=== PATIENT | male | born 1960 | race Hispanic/Latino ===

== ENCOUNTER 2018-03-04 17:08 | Inpatient (IN) | payer BC, OTHER ==
[2018-03-04 18:57] LABS: INR-International Normal Ratio 2.4; Prothrombin Time 26.1 SEC (12.0-14.7)
[2018-03-04 18:58] LABS: PTT 43.9 SEC (22.9-36.1)
--- NOTE | 2018-03-04 19:12 | CT ---
CT BRAIN 03/04/18 PROVIDED CLINICAL HISTORY: Fall with head injury. FINDINGS: Comparison 05/22/16. The ventricular system appears normal in size and morphology. There is no evidence for intracranial h emorrhage or mass effect. The extracranial soft tissues and osseous structures demonstrate an unremar kable CT appearance. IMPRESSION: No evidence for intracranial hemorrhage or mass effect. POS: [facility]
[2018-03-04 19:14] LABS: ALT (SGPT) 31 U/L (8-55); AST (SGOT) 81 U/L (5-34); Albumin 2.2 g/dL (3.5-5.0); Alkaline Phosphatase 110 U/L (40-150); Anion Gap 13 mmol/L (10-20); BUN (Urea Nitrogen) 12 mg/dL (8.4-25.7); Bilirubin, Direct 4.5 mg/dL (0.1-0.3); Bilirubin, Total 6.5 mg/dL (0.2-1.2); Calc. Creatinine Clearance 0 mL/min (70-130); Calcium 8.4 mg/dL (7.8-10.44); Carbon Dioxide 23 mmol/L (22-29); Chloride 103 mmol/L (98-107); Estimated GFR-MDRD 29; Glucose 136 mg/dL (70-105); Potassium 3.4 mmol/L (3.5-5.1); Protein, Total 7.4 g/dL (6.0-8.3); Sodium 136 mmol/L (136-145)
[2018-03-04 19:23] LABS: #Basophils 0.1 thou/uL (0.0-0.2); #Eosinphils 0.1 thou/uL (0.0-0.7); #Lymphocytes 1.5 thou/uL (1.20-3.40); #Monocytes 0.8 thou/uL (0.11-0.59); %Basophils 1.9 % (0.0-1.0); %Lymphocytes 27.6 % (21.0-51.0); %Monocytes 14.5 % (0.0-10.0); Hemoglobin 9.9 g/dL (14.0-18.0); Mean Corpuscular HGB CONC 33.9 g/dL (32.0-36.0); Mean Corpuscular Hemoglobin 39.9 pg (27.0-31.0); Mean Platelet Volume 10.3 fL (7.4-10.4); Platelet Count 41 thou/uL (130-400); Red Blood Cell (RBC) Count 2.48 mill/uL (4.70-6.10); White Blood Cell (WBC) Count 5.5 thou/uL (4.8-10.8)
[2018-03-04 19:25] LABS: Anisocytosis SLIGHT = 6-15 cells (100X) (0-5/hpf); MDiff Complete? YES; Macrocytosis SLIGHT = 6-15 cells (100X) (0-5/hpf); Platelet Morphology Comment Appears Decreased; Polychromasia SLIGHT = 2-3 cells (100X) (0-2/hpf); Target Cells SLIGHT = 2-5 cells (100X) (0-1/hpf)
--- NOTE | 2018-03-04 19:38 | CT ---
CT CERVICAL SPINE 03/04/18 PROVIDED CLINICAL HISTORY: Fall. FINDINGS: Comparison 06/19/13. No evidence for fracture or traumatic subluxation. Changes of ACDF at C4-5 without evidence for hardw are complication. No prevertebral soft tissue swelling apparent. Vascular calcification is noted invo lving the carotid arteries. The visualized lung apices appear clear. IMPRESSION: No evidence for fracture or traumatic subluxation. POS: [facility]
--- NOTE | 2018-03-04 20:03 | RAD ---
LEFT HIP RADIOGRAPHS TWO VIEWS: 03/04/18 PROVIDED CLINICAL HISTORY: Left hip pain status post fall. FINDINGS: Heterogeneous appearance to the left femoral head likely reflects changes of osteonecrosis. No defin ite evidence for subchondral collapse. An osteochondral fragment at the posterior superior left femor al head is suggested on the lateral view. Left hip joint space appears preserved. IMPRESSION: Changes of osteonecrosis are suspected involving the left femoral head with possible associated osteo chondral fragment. Nonemergent followup MRI should be considered. POS: [facility]
[2018-03-04] MEDS ORDERED: Morphine 4 MG/ML VIAL ONE (20:32)
[2018-03-04 21:44] VITALS: BMI 24.7
[2018-03-04] MEDS ORDERED: Bisacodyl 5 MG TAB PO PRN (23:22)
[2018-03-04] MEDS ORDERED: Bisacodyl 10 MG SUPP PR PRN (23:22)
[2018-03-04] MEDS ORDERED: Senokot S 8.6-50 MG TAB PO PRN (23:22)
[2018-03-04 23:58] LABS: #Basophils 0.1 thou/uL (0.0-0.2); #Lymphocytes 1.1 thou/uL (1.20-3.40); #Monocytes 0.5 thou/uL (0.11-0.59); #Neutrophils 2.6 thou/uL (1.40-6.50); %Basophils 1.6 % (0.0-1.0); %Eosinophils 0.5 % (0.0-10.0); %Monocytes 11.2 % (0.0-10.0); %Neutrophils 61.7 % (42.0-75.0); Hemoglobin 9.5 g/dL (14.0-18.0); Mean Corpuscular HGB CONC 32.3 g/dL (32.0-36.0); Mean Corpuscular Hemoglobin 38.5 pg (27.0-31.0); Mean Platelet Volume 9.7 fL (7.4-10.4); Platelet Count 34 thou/uL (130-400); RBC Distribution Width 16.2 % (11.5-14.5); Red Blood Cell (RBC) Count 2.47 mill/uL (4.70-6.10); White Blood Cell (WBC) Count 4.2 thou/uL (4.8-10.8)
[2018-03-05 00:14] LABS: Anion Gap 14 mmol/L (10-20); BUN (Urea Nitrogen) 12 mg/dL (8.4-25.7); BUN/Creatinine Ratio 5.56; Calc. Creatinine Clearance 37 mL/min (70-130); Calcium 7.9 mg/dL (7.8-10.44); Carbon Dioxide 21 mmol/L (22-29); Chloride 104 mmol/L (98-107); Estimated GFR-MDRD 32; Glucose 129 mg/dL (70-105); Phosphorus 3.5 mg/dL (2.3-4.7); Potassium 3.4 mmol/L (3.5-5.1); Sodium 136 mmol/L (136-145)
[2018-03-05 00:15] LABS: Iron 107 ug/dL (65-175); Iron Binding Capacity, Total 103 mcg/dL (261-462)
[2018-03-05 00:46] LABS: Folate (Folic Acid) 2.8 ng/mL (7.0-31.4)
[2018-03-05] MEDS: traMADol HCl 50 MG TAB PO PRN ×2 (01:02→20:59)
[2018-03-05 05:13] LABS: #Basophils 0.1 thou/uL (0.0-0.2); #Eosinphils 0.1 thou/uL (0.0-0.7); #Lymphocytes 1.1 thou/uL (1.20-3.40); #Monocytes 0.6 thou/uL (0.11-0.59); #Neutrophils 2.5 thou/uL (1.40-6.50); %Basophils 1.3 % (0.0-1.0); %Eosinophils 1.8 % (0.0-10.0); %Lymphocytes 25.3 % (21.0-51.0); %Monocytes 14.1 % (0.0-10.0); %Neutrophils 57.6 % (42.0-75.0); Hemoglobin 8.9 g/dL (14.0-18.0); Mean Corpuscular HGB CONC 33.8 g/dL (32.0-36.0); Mean Platelet Volume 9.6 fL (7.4-10.4); Platelet Count 32 thou/uL (130-400); RBC Distribution Width 16.3 % (11.5-14.5); Red Blood Cell (RBC) Count 2.22 mill/uL (4.70-6.10); White Blood Cell (WBC) Count 4.4 thou/uL (4.8-10.8)
[2018-03-05 05:36] LABS: Anion Gap 14 mmol/L (10-20); BUN (Urea Nitrogen) 14 mg/dL (8.4-25.7); Calc. Creatinine Clearance 40 mL/min (70-130); Calcium 7.7 mg/dL (7.8-10.44); Carbon Dioxide 23 mmol/L (22-29); Chloride 104 mmol/L (98-107); Estimated GFR-MDRD 34; Glucose 111 mg/dL (70-105); Potassium 3.5 mmol/L (3.5-5.1); Sodium 137 mmol/L (136-145)
[2018-03-05] MEDS ORDERED: Magnesium Sulfate 4 GM in Sodium Chloride 0.9% 250 ML 250 ML IVPB SCH (08:15)
--- NOTE | 2018-03-05 08:41 | HP ---
CHIEF COMPLAINT: Multiple falls. HISTORY OF PRESENT ILLNESS: This is a 57-year-old male with past medical history of cirrhosis, hepatitis C, ethanol abuse, presenting to our ED with left hip pain, status post fall. Per family member and the patient, he got up and he fell at home a couple of weeks prior and the patient is now in pain, therefore prompted the ED visit. Also, the patient's primary care physician is requesting that the patient's ammonia levels to be drawn in the hospital, so that it can be checked. Per the patient, his last drink was morning. The patient was actually sober for the past year and has relapsed into drinking again. At this point, the patient stated that his main issue is his left hip, which has been having severe pain for the past 3 weeks. Pain is 8/10. At this point, currently, the patient states that due to medications, now the pain is about 2/10. The patient denies any fever, chills, nausea, vomiting, chest pain, palpitations, abdominal pain, dysuria, hematuria, or hematochezia. The patient endorses left hip pain and some tremors. REVIEW OF SYSTEMS: Positive for bowel incontinence, left hip pain, multiple falls. Otherwise as documented in the HPI, all systems has been reviewed and are negative. PAST MEDICAL HISTORY: Hepatitis C, liver cirrhosis, hypertension, gallstones, and ethanol abuse. FAMILY HISTORY: Reviewed and noncontributory to this visit. PAST SURGICAL HISTORY: Right hand surgery. PAST PSYCHIATRIC HISTORY: The patient is alcoholic. He has anxiety and depression. SOCIAL HISTORY: The patient drinks alcohol, and the patient has been drinking on the regular basis. The patient drinks about 10 drinks per day. The patient is a former heroin drug abuser. The patient also is a former cigarette smoker. The patient lives at home with family. ALLERGIES: NO KNOWN DRUG ALLERGIES. CURRENT MEDICATIONS: The patient takes; 1. Magnesium oxide 400 mg. 2. Tamsulosin 0.4 mg. 3. Furosemide 20 mg. 4. Spironolactone 50 mg. 5. Folic acid 1 mg. 6. Thiamine 100 mg. 7. Xifaxan 550 mg b.i.d. 8. Propranolol 5 mg t.i.d. 9. Lexapro 10 mg orally. 10. Klonopin. PHYSICAL EXAMINATION: VITAL SIGNS: The patient's blood pressure is 108/69, pulse is 70, respiratory rate of 16, temperature of 97.9, and O2 saturations 97. CONSTITUTIONAL SYMPTOMS/GENERAL: The patient is lying in bed. The patient has a big alvarez, unkempt, and the patient looks as if he is homeless. The patient is cachectic. HEENT: Normocephalic and atraumatic. Pupils are equally round and reactive to light. The patient has scleral icterus. Mucous membranes are dry. NECK: Trachea is midline. Full range of motion. Mild JVD noted. LUNGS: Clear to auscultation bilaterally. No wheezing, no rales, no rhonchi are appreciated. CARDIAC: Positive S1 and S2. Regular rate and rhythm. No murmurs, no gallops, no rubs are appreciated. ABDOMEN: Mildly distended with ascitic wave present. No peritonitis noted. No guarding. EXTREMITIES: The patient has tenderness at the left hip with reduced range of motion at the hip. Otherwise, the patient has no edema noted at the lower extremities bilaterally. The patient has 5/5 upper extremity strength. Good pulses bilaterally at the upper and lower extremities. NEURO: Cranial nerves II through XII are grossly intact. No focal neurologic deficits noted at this time. LABORATORY DATA: 1. WBC is 5.5, hemoglobin is 9.9, hematocrit is 29.2, and platelet count is 41. 2. PT is 26.1, INR is 2.4, and PTT is 43.9. 3. Sodium is 136, potassium is 3.4, chloride is 103, carbon dioxide of 23, anion gap of 13, BUN is 12, creatinine is 2.35. BUN and creatinine ratio is 5.56 approximately, glucose is 136. Magnesium is 1.0. 4. Vitamin B12 is 1680, folate is 2.80. ASSESSMENT AND PLAN: This is a 57-year-old male, being admitted for; 1. Multiple falls, likely due to ethanol intoxication versus physical deconditioning. At this time, the patient will benefit from PT, OT. We will advise the patient to stop drinking. We will give the patient IV gentle hydration like one bag, and we will give the patient Ativan p.r.n. for possible withdrawal. We will start the patient on multivitamins and folic acid. 2. Electrolyte abnormalities. We will replete all electrolyte abnormalities. 3. Severe hypomagnesemia. We will replete magnesium levels. 4. History of cirrhosis. The patient do have history of cirrhosis with ascites. We are going to monitor this at this time. The patient does not have any abdominal distention requiring any intervention at this time. We will monitor the patient closely. 5. Acute on chronic kidney injury, likely due to prerenal etiology. At this time, we will monitor the patient's creatinine closely. We will follow up on morning labs. 6. Thrombocytopenia likely due to liver cirrhosis. At this point, we will monitor the patient's platelet. We will hold all medications other than antiplatelets. 7. Physical deconditioning. We will get Physical Therapy and Case Management for the patient. 8. Deep vein thrombosis and gastrointestinal prophylaxis addressed. Job ID: [id number]
[2018-03-05] MEDS ORDERED: Famotidine 20 MG TAB PO SCH (09:00)
[2018-03-05] MEDS ORDERED: Famotidine/PF 20 mg/2ml Vial SLOW IVP SCH (09:00)
[2018-03-05] MEDS: Ondansetron ODT 8 MG TAB PO PRN ×2 (09:20→19:27)
[2018-03-05] MEDS: Propranolol 10 MG TAB PO SCH ×3 (10:04→20:58)
[2018-03-05] MEDS: clonazePAM 1 MG TAB PO SCH ×3 (10:04→20:59)
[2018-03-05] MEDS: Tamsulosin HCl 0.4 MG CAP PO SCH ×2 (10:05→12:56)
[2018-03-05] MEDS: Escitalopram Oxalate 10 mg Tablet PO SCH ×2 (10:05→12:56)
[2018-03-05] MEDS: Rifaximin 550 MG TAB PO SCH ×2 (10:05→20:59)
[2018-03-05] MEDS: Folic Acid 1 MG TAB PO SCH ×2 (10:05→12:56)
[2018-03-05] MEDS: Lorazepam 2 MG/ML VIAL SLOW IVP PRN (12:24)
--- NOTE | 2018-03-05 17:07 | PDOC.PN ---
- Subjective Encounter Start Date: 03/05/18 Encounter Start Time: 10:00 Pt seen for followup re: acute on chronic stage 3 renal failure. Denies chest pain, shortness of breath, fevers or chills. - Objective Resuscitation Status - Order Detail: 03/04/18 23:22 Resuscitation Status Routine Resuscitation Status: FULL: Full Resuscitation MAR Reviewed: Yes Vital Signs & Weight: Vital Signs (12 hours) Temp Pulse Pulse Pulse Resp BP BP 03/05/18 15:35 98.3 F 96 16 03/05/18 13:38 82 85 113/66 144/65 H 03/05/18 11:56 98.1 F 84 20 03/05/18 10:28 87 85 131/65 143/70 H 03/05/18 08:10 98.2 F 81 16 BP Pulse Ox Pulse Ox 03/05/18 15:35 133/74 94 L 03/05/18 13:38 03/05/18 11:56 126/76 94 L 03/05/18 10:28 94 L 03/05/18 08:10 118/71 94 L Weight Weight 153 lb 11.2 oz I&O: 03/04/18 03/05/18 03/06/18 06:59 06:59 06:59 Intake Total 640 250 Output Total 550 Balance 90 250 Result Diagrams: 03/05/18 04:52 03/05/18 04:52 Additional Labs: labs reviewed by me Phys Exam - Physical Examination Constitutional: NAD HEENT: moist MMs icterus Neck: supple Respiratory: clear to auscultation bilateral Cardiovascular: RRR Gastrointestinal: soft, non-tender, positive bowel sounds Neurological: moves all 4 limbs No flapping tremor Psychiatric: normal affect Dx/Plan (1) Acute worsening of stage 3 chronic kidney disease Code(s): N18.3 - CHRONIC KIDNEY DISEASE, STAGE 3 (MODERATE) Status: Acute Comment: ? hepatorenal syndrome vs other causes. Improving, provide IV hydration, follow creatinine. (2) Alcohol abuse Code(s): F10.10 - ALCOHOL ABUSE, UNCOMPLICATED Status: Chronic Comment: start ASE protocol. Continue thiamine. (3) BPH (benign prostatic hyperplasia) Code(s): N40.0 - BENIGN PROSTATIC HYPERPLASIA WITHOUT LOWER URINRY TRACT SYMP Status: Chronic Comment: stable (4) Cirrhosis of liver Code(s): K74.60 - UNSPECIFIED CIRRHOSIS OF LIVER Status: Chronic Comment: stable (5) Coagulopathy Status: Chronic Comment: secondary to liver disease (6) Hypertension Code(s): I10 - ESSENTIAL (PRIMARY) HYPERTENSION Status: Chronic Qualifiers: Comment: controlled (7) Falls Code(s): W19.XXXA - UNSPECIFIED FALL, INITIAL ENCOUNTER Status: Chronic Comment: PT/OT eval/tx - Plan plan discussed w/ family, out of bed/ambulate * . Review of Systems - Review of Systems Cardiovascular: negative: chest pain, palpitations, orthopnea, paroxysmal nocturnal dyspnea, edema, light headedness Gastrointestinal: negative: Nausea, Vomiting, Abdominal Pain, Diarrhea, Constipation, Melena, Hematochezia - Medications/Allergies Allergies/Adverse Reactions: Allergies Allergy/AdvReac Type Severity Reaction Status Date / Time No Known Allergies Allergy Verified 03/04/18 21:48 Medications: Current Medications Acetaminophen (Tylenol) 650 mg PO Q4H PRN PRN Reason: Headache/Fever/Mild Pain (1-3) Bisacodyl (Dulcolax) 10 mg PO DAILYPRN PRN PRN Reason: Constipation Bisacodyl (Dulcolax) 10 mg [place] DAILYPRN PRN PRN Reason: Constipation Clonazepam (Klonopin) 1 mg PO BID [facility] Last Admin: 03/05/18 12:55 Dose: Not Given Escitalopram Oxalate (Lexapro) 10 mg PO DAILY [facility] Last Admin: 03/05/18 12:56 Dose: Not Given Folic Acid (Folvite) 1 mg PO DAILY [facility] Last Admin: 03/05/18 12:56 Dose: Not Given Lorazepam (Ativan) 2 mg SLOW IVP Q4H PRN PRN Reason: Anxiety/Agitation Last Admin: 03/05/18 12:24 Dose: 2 mg Magnesium Oxide (Magnesium Oxide) 400 mg PO HS [facility] Ondansetron HCl (Zofran Odt) 8 mg PO Q8H PRN PRN Reason: Nausea Last Admin: 03/05/18 09:20 Dose: 8 mg Propranolol HCl (Inderal) 5 mg PO TID [facility] Last Admin: 03/05/18 15:37 Dose: 5 mg Rifaximin (Xifaxan) 550 mg PO BID [facility] Last Admin: 03/05/18 10:05 Dose: 550 mg Senna/Docusate Sodium (Senokot S) 2 tab PO BID PRN PRN Reason: Constipation Sodium Chloride (Flush - Normal Saline) 10 ml IVF Q12HR [facility] Last Admin: 03/05/18 10:06 Dose: 10 ml Sodium Chloride (Flush - Normal Saline) 10 ml IVF PRN PRN PRN Reason: Saline Flush Tamsulosin HCl (Flomax) 0.4 mg PO DAILY [facility] Last Admin: 03/05/18 12:56 Dose: Not Given Thiamine HCl (Thiamine) 100 mg PO DAILY [facility] Last Admin: 03/05/18 12:57 Dose: Not Given Tramadol HCl (Ultram) 50 mg PO Q6H PRN PRN Reason: Pain 4-6 Last Admin: 03/05/18 01:02 Dose: 50 mg
[2018-03-05] MEDS: Sodium Chloride 0.9% 1,000 ML IV SCH (19:28)
[2018-03-05] MEDS: Magnesium Oxide 400 MG TAB PO SCH (20:58)
[2018-03-06] MEDS: traMADol HCl 50 MG TAB PO PRN ×2 (04:07→23:41)
[2018-03-06] MEDS: Ondansetron ODT 8 MG TAB PO PRN (04:08)
[2018-03-06] MEDS: Lorazepam 2 MG/ML VIAL SLOW IVP PRN (04:28)
[2018-03-06 05:12] LABS: #Eosinphils 0.1 thou/uL (0.0-0.7); #Lymphocytes 1.3 thou/uL (1.20-3.40); #Monocytes 0.8 thou/uL (0.11-0.59); #Neutrophils 3.6 thou/uL (1.40-6.50); %Basophils 0.8 % (0.0-1.0); %Eosinophils 1.5 % (0.0-10.0); %Lymphocytes 21.9 % (21.0-51.0); %Monocytes 12.9 % (0.0-10.0); %Neutrophils 62.8 % (42.0-75.0); Hemoglobin 9.1 g/dL (14.0-18.0); Mean Corpuscular HGB CONC 33.7 g/dL (32.0-36.0); Mean Corpuscular Hemoglobin 39.9 pg (27.0-31.0); Mean Platelet Volume 9.9 fL (7.4-10.4); Platelet Count 37 thou/uL (130-400); RBC Distribution Width 16.5 % (11.5-14.5); Red Blood Cell (RBC) Count 2.28 mill/uL (4.70-6.10); White Blood Cell (WBC) Count 5.8 thou/uL (4.8-10.8)
[2018-03-06 05:33] LABS: ALT (SGPT) 28 U/L (8-55); AST (SGOT) 68 U/L (5-34); Albumin 1.9 g/dL (3.5-5.0); Alkaline Phosphatase 86 U/L (40-150); Anion Gap 10 mmol/L (10-20); BUN (Urea Nitrogen) 14 mg/dL (8.4-25.7); Calc. Creatinine Clearance 50 mL/min (70-130); Calcium 7.5 mg/dL (7.8-10.44); Carbon Dioxide 25 mmol/L (22-29); Chloride 102 mmol/L (98-107); Estimated GFR-MDRD 43; Globulin 4.7 g/dL (2.4-3.5); Glucose 106 mg/dL (70-105); Magnesium 1.7 mg/dL (1.6-2.6); Potassium 3.5 mmol/L (3.5-5.1); Protein, Total 6.6 g/dL (6.0-8.3); Sodium 133 mmol/L (136-145)
[2018-03-06] MEDS: Sodium Chloride 0.9% 1,000 ML IV SCH ×2 (08:58→23:37)
[2018-03-06] MEDS: Propranolol 10 MG TAB PO SCH ×3 (08:59→21:37)
[2018-03-06] MEDS: Escitalopram Oxalate 10 mg Tablet PO SCH (08:59)
[2018-03-06] MEDS: Folic Acid 1 MG TAB PO SCH (08:59)
[2018-03-06] MEDS: Tamsulosin HCl 0.4 MG CAP PO SCH (08:59)
[2018-03-06] MEDS: clonazePAM 1 MG TAB PO SCH ×2 (08:59→21:38)
[2018-03-06] MEDS: Rifaximin 550 MG TAB PO SCH ×2 (08:59→21:37)
--- NOTE | 2018-03-06 13:01 | PDOC.PN ---
- Subjective Encounter Start Date: 03/06/18 Encounter Start Time: 07:20 Pt seen for followup re: alcohol withdrawal. Tremulous, nauseous. - Objective Resuscitation Status - Order Detail: 03/04/18 23:22 Resuscitation Status Routine Resuscitation Status: FULL: Full Resuscitation Vital Signs & Weight: Vital Signs (12 hours) Temp Pulse Resp BP BP Pulse Ox 03/06/18 12:00 112/58 L 03/06/18 11:10 98.5 F 90 16 112/58 L 93 L 03/06/18 07:54 121/65 03/06/18 07:49 98.5 F 91 16 124/66 92 L 03/06/18 04:14 136/73 03/06/18 04:13 99 F 89 20 136/73 93 L Weight Weight 157 lb 14.4 oz I&O: 03/05/18 03/06/18 03/07/18 06:59 06:59 06:59 Intake Total 640 1284 1000 Output Total 550 800 Balance 90 484 1000 Result Diagrams: 03/06/18 04:49 03/06/18 04:50 Phys Exam - Physical Examination Constitutional: NAD HEENT: moist MMs, oral pharynx no lesions, 2+ tonsils scleral icterus Neck: no nodes, no JVD, supple, full ROM Respiratory: clear to auscultation bilateral Cardiovascular: RRR, no rub S1, S2 Neurological: moves all 4 limbs Psychiatric: normal affect Deviation from normal: Oriented to person and place only, not to time Dx/Plan (1) Alcohol withdrawal syndrome Code(s): F10.239 - ALCOHOL DEPENDENCE WITH WITHDRAWAL, UNSPECIFIED Status: Acute Comment: Continue ASE protocol, benzodiazepines PRN (2) BPH (benign prostatic hyperplasia) Code(s): N40.0 - BENIGN PROSTATIC HYPERPLASIA WITHOUT LOWER URINRY TRACT SYMP Status: Chronic Comment: stable (3) Alcohol abuse Code(s): F10.10 - ALCOHOL ABUSE, UNCOMPLICATED Status: Chronic Comment: Continue thiamine. (4) Cirrhosis of liver Code(s): K74.60 - UNSPECIFIED CIRRHOSIS OF LIVER Status: Chronic Comment: stable (5) Coagulopathy Status: Chronic Comment: secondary to liver disease, stable (6) Hypertension Code(s): I10 - ESSENTIAL (PRIMARY) HYPERTENSION Status: Chronic Qualifiers: Comment: controlled (7) Falls Code(s): W19.XXXA - UNSPECIFIED FALL, INITIAL ENCOUNTER Status: Chronic Comment: PT/OT maureen appreciated (8) Acute worsening of stage 3 chronic kidney disease Code(s): N18.3 - CHRONIC KIDNEY DISEASE, STAGE 3 (MODERATE) Status: Resolved - Plan * . Pt at significant risk for delirium tremens and hemodynamic instability, last alcohol use approximately 48 hours ago. Unable to discharge pt at this time due to risk of hemodynamic instability, seizures and even . Will change admission to inpatient. Review of Systems - Review of Systems Constitutional: negative: fever, chills, sweats, weakness, malaise Respiratory: negative: Cough, Shortness of Breath, SOB with Excertion, Pleuritic Pain, Wheezing Cardiovascular: palpitations. negative: chest pain, orthopnea, paroxysmal nocturnal dyspnea, edema, light headedness Gastrointestinal: Nausea, Vomiting. negative: Abdominal Pain, Diarrhea, Constipation, Melena, Hematochezia Genitourinary: negative: Dysuria, Frequency, Incontinence, Hematuria, Retention Neurological: Confusion, Other. negative: Weakness, Numbness, Incoordination, Change in Speech, Seizures (tremor) - Medications/Allergies Allergies/Adverse Reactions: Allergies Allergy/AdvReac Type Severity Reaction Status Date / Time No Known Allergies Allergy Verified 03/04/18 21:48 Medications: Current Medications Acetaminophen (Tylenol) 650 mg PO Q4H PRN PRN Reason: Headache/Fever/Mild Pain (1-3) Bisacodyl (Dulcolax) 10 mg PO DAILYPRN PRN PRN Reason: Constipation Bisacodyl (Dulcolax) 10 mg [place] DAILYPRN PRN PRN Reason: Constipation Clonazepam (Klonopin) 1 mg PO BID [facility] Last Admin: 03/06/18 08:59 Dose: 1 mg Escitalopram Oxalate (Lexapro) 10 mg PO DAILY [facility] Last Admin: 03/06/18 08:59 Dose: 10 mg Folic Acid (Folvite) 1 mg PO DAILY [facility] Last Admin: 03/06/18 08:59 Dose: 1 mg Sodium Chloride (Normal Saline 0.9%) 1,000 mls @ 75 mls/hr IV .[id number] [facility] Last Admin: 03/06/18 08:58 Dose: 1,000 mls Lorazepam (Ativan) 2 mg SLOW IVP Q4H PRN PRN Reason: Anxiety/Agitation Last Admin: 03/06/18 04:28 Dose: 2 mg Magnesium Oxide (Magnesium Oxide) 400 mg PO HS [facility] Last Admin: 03/05/18 20:58 Dose: 400 mg Ondansetron HCl (Zofran Odt) 8 mg PO Q8H PRN PRN Reason: Nausea Last Admin: 03/06/18 04:08 Dose: 8 mg Propranolol HCl (Inderal) 5 mg PO TID [facility] Last Admin: 03/06/18 08:59 Dose: 5 mg Rifaximin (Xifaxan) 550 mg PO BID [facility] Last Admin: 03/06/18 08:59 Dose: 550 mg Senna/Docusate Sodium (Senokot S) 2 tab PO BID PRN PRN Reason: Constipation Sodium Chloride (Flush - Normal Saline) 10 ml IVF Q12HR [facility] Last Admin: 03/06/18 08:59 Dose: Not Given Sodium Chloride (Flush - Normal Saline) 10 ml IVF PRN PRN PRN Reason: Saline Flush Tamsulosin HCl (Flomax) 0.4 mg PO DAILY [facility] Last Admin: 03/06/18 08:59 Dose: 0.4 mg Thiamine HCl (Thiamine) 100 mg PO DAILY [facility] Last Admin: 03/06/18 08:59 Dose: 100 mg Tramadol HCl (Ultram) 50 mg PO Q6H PRN PRN Reason: Pain 4-6 Last Admin: 03/06/18 04:07 Dose: 50 mg
[2018-03-06] MEDS: Magnesium Oxide 400 MG TAB PO SCH (21:38)
[2018-03-07 05:35] LABS: ALT (SGPT) 24 U/L (8-55); AST (SGOT) 60 U/L (5-34); Albumin 1.9 g/dL (3.5-5.0); Alkaline Phosphatase 108 U/L (40-150); Anion Gap 11 mmol/L (10-20); BUN (Urea Nitrogen) 14 mg/dL (8.4-25.7); Band 6 % (5-11); Calc. Creatinine Clearance 56 mL/min (70-130); Calcium 7.8 mg/dL (7.8-10.44); Carbon Dioxide 22 mmol/L (22-29); Chloride 102 mmol/L (98-107); Elliptocytes SLIGHT = 2-5 cells (100X) (0-1/hpf); Eosinophils 4 % (0-10); Estimated GFR-MDRD 49; Globulin 4.6 g/dL (2.4-3.5); Glucose 103 mg/dL (70-105); Hypochromia SLIGHT = 6-15 cells (100X) (0-5/hpf); Lymphocytes 29 % (21-51); MDiff Complete? YES; Macrocytosis MODERATE=16-30 cells (100X) (0-5/hpf); Mean Corpuscular HGB CONC 33.5 g/dL (32.0-36.0); Mean Corpuscular Hemoglobin 39.9 pg (27.0-31.0); Mean Platelet Volume 10.4 fL (7.4-10.4); Monocytes 13 % (0-10); Neutrophil 48 % (42-75); Platelet Count 32 thou/uL (130-400); Platelet Morphology Comment Appears Decreased; Potassium 3.7 mmol/L (3.5-5.1); Protein, Total 6.5 g/dL (6.0-8.3); RBC Distribution Width 16.5 % (11.5-14.5); Red Blood Cell (RBC) Count 2.24 mill/uL (4.70-6.10); Sodium 131 mmol/L (136-145)
[2018-03-07] MEDS: traMADol HCl 50 MG TAB PO PRN ×3 (06:21→20:07)
[2018-03-07] MEDS: Rifaximin 550 MG TAB PO SCH ×2 (08:07→20:06)
[2018-03-07] MEDS: Folic Acid 1 MG TAB PO SCH (08:07)
[2018-03-07] MEDS: clonazePAM 1 MG TAB PO SCH ×2 (08:07→20:06)
[2018-03-07] MEDS: Tamsulosin HCl 0.4 MG CAP PO SCH (08:07)
[2018-03-07] MEDS: Escitalopram Oxalate 10 mg Tablet PO SCH (08:08)
[2018-03-07] MEDS: Propranolol 10 MG TAB PO SCH ×3 (08:08→20:07)
--- NOTE | 2018-03-07 12:41 | PDOC.PN ---
- Subjective Encounter Start Date: 03/07/18 Encounter Start Time: 07:20 Pt seen for followup re: alcohol withdrawal. Kristy, did not sleep well. - Objective Resuscitation Status - Order Detail: 03/04/18 23:22 Resuscitation Status Routine Resuscitation Status: FULL: Full Resuscitation MAR Reviewed: Yes Vital Signs & Weight: Vital Signs (12 hours) Temp Pulse Resp BP BP Pulse Ox 03/07/18 08:04 97.7 F 85 20 116/70 95 03/07/18 04:46 98.3 F 80 12 130/71 130/71 95 Weight Weight 157 lb 14.4 oz I&O: 03/06/18 03/07/18 03/08/18 06:59 06:59 06:59 Intake Total 1284 2231 Output Total 800 Balance 484 2231 Result Diagrams: 03/07/18 04:44 03/07/18 04:44 EKG Reviewed by me: Yes (Tele: NSR) Phys Exam - Physical Examination Constitutional: NAD HEENT: moist MMs Neck: supple Respiratory: clear to auscultation bilateral Cardiovascular: RRR Gastrointestinal: soft Neurological: moves all 4 limbs tremulous Deviation from normal: appears anxious, oriented to person and place only Dx/Plan (1) Alcohol withdrawal syndrome Code(s): F10.239 - ALCOHOL DEPENDENCE WITH WITHDRAWAL, UNSPECIFIED Status: Acute Comment: Pt is on ASE protocol, PRN benzodiazepines (2) BPH (benign prostatic hyperplasia) Code(s): N40.0 - BENIGN PROSTATIC HYPERPLASIA WITHOUT LOWER URINRY TRACT SYMP Status: Chronic Comment: stable (3) Alcohol abuse Code(s): F10.10 - ALCOHOL ABUSE, UNCOMPLICATED Status: Chronic Comment: on thiamine. (4) Cirrhosis of liver Code(s): K74.60 - UNSPECIFIED CIRRHOSIS OF LIVER Status: Chronic Comment: stable (5) Coagulopathy Status: Chronic Comment: secondary to liver disease, stable (6) Hypertension Code(s): I10 - ESSENTIAL (PRIMARY) HYPERTENSION Status: Chronic Qualifiers: Comment: controlled (7) Falls Code(s): W19.XXXA - UNSPECIFIED FALL, INITIAL ENCOUNTER Status: Chronic Comment: PT/OT evals appreciated (8) Acute worsening of stage 3 chronic kidney disease Code(s): N18.3 - CHRONIC KIDNEY DISEASE, STAGE 3 (MODERATE) Status: Resolved - Plan * . Review of Systems - Review of Systems Respiratory: negative: Cough, Shortness of Breath, SOB with Excertion, Pleuritic Pain, Wheezing Cardiovascular: negative: chest pain, palpitations, orthopnea, paroxysmal nocturnal dyspnea, edema, light headedness - Medications/Allergies Allergies/Adverse Reactions: Allergies Allergy/AdvReac Type Severity Reaction Status Date / Time No Known Allergies Allergy Verified 03/04/18 21:48 Medications: Current Medications Acetaminophen (Tylenol) 650 mg PO Q4H PRN PRN Reason: Headache/Fever/Mild Pain (1-3) Bisacodyl (Dulcolax) 10 mg PO DAILYPRN PRN PRN Reason: Constipation Bisacodyl (Dulcolax) 10 mg [place] DAILYPRN PRN PRN Reason: Constipation Clonazepam (Klonopin) 1 mg PO BID [facility] Last Admin: 03/07/18 08:07 Dose: 1 mg Escitalopram Oxalate (Lexapro) 10 mg PO DAILY [facility] Last Admin: 03/07/18 08:08 Dose: 10 mg Folic Acid (Folvite) 1 mg PO DAILY [facility] Last Admin: 03/07/18 08:07 Dose: 1 mg Sodium Chloride (Normal Saline 0.9%) 1,000 mls @ 75 mls/hr IV .[id number] [facility] Last Admin: 03/06/18 23:37 Dose: 1,000 mls Lorazepam (Ativan) 2 mg SLOW IVP Q4H PRN PRN Reason: Anxiety/Agitation Last Admin: 03/06/18 04:28 Dose: 2 mg Magnesium Oxide (Magnesium Oxide) 400 mg PO HS [facility] Last Admin: 03/06/18 21:38 Dose: 400 mg Ondansetron HCl (Zofran Odt) 8 mg PO Q8H PRN PRN Reason: Nausea Last Admin: 03/06/18 04:08 Dose: 8 mg Propranolol HCl (Inderal) 5 mg PO TID [facility] Last Admin: 03/07/18 08:08 Dose: 5 mg Rifaximin (Xifaxan) 550 mg PO BID [facility] Last Admin: 03/07/18 08:07 Dose: 550 mg Senna/Docusate Sodium (Senokot S) 2 tab PO BID PRN PRN Reason: Constipation Sodium Chloride (Flush - Normal Saline) 10 ml IVF Q12HR [facility] Last Admin: 03/07/18 08:19 Dose: Not Given Sodium Chloride (Flush - Normal Saline) 10 ml IVF PRN PRN PRN Reason: Saline Flush Last Admin: 03/06/18 21:39 Dose: 10 ml Tamsulosin HCl (Flomax) 0.4 mg PO DAILY [facility] Last Admin: 03/07/18 08:07 Dose: 0.4 mg Thiamine HCl (Thiamine) 100 mg PO DAILY [facility] Last Admin: 03/07/18 08:07 Dose: 100 mg Tramadol HCl (Ultram) 50 mg PO Q6H PRN PRN Reason: Pain 4-6 Last Admin: 03/07/18 06:21 Dose: 50 mg
[2018-03-07] MEDS: Sodium Chloride 0.9% 1,000 ML IV SCH (13:07)
[2018-03-07] MEDS: Lorazepam 2 MG/ML VIAL SLOW IVP PRN (14:37)
[2018-03-07] MEDS: Magnesium Oxide 400 MG TAB PO SCH (20:06)
[2018-03-07] MEDS: Acetaminophen 325 MG TAB PO PRN (20:07)
[2018-03-08] MEDS: Sodium Chloride 0.9% 1,000 ML IV SCH ×2 (02:36→15:20)
[2018-03-08 04:44] LABS: #Basophils 0.1 thou/uL (0.0-0.2); #Eosinphils 0.2 thou/uL (0.0-0.7); #Lymphocytes 1.5 thou/uL (1.20-3.40); #Monocytes 0.8 thou/uL (0.11-0.59); #Neutrophils 2.8 thou/uL (1.40-6.50); %Basophils 1.1 % (0.0-1.0); %Eosinophils 3.5 % (0.0-10.0); %Monocytes 14.7 % (0.0-10.0); %Neutrophils 52.6 % (42.0-75.0); Hemoglobin 9.3 g/dL (14.0-18.0); Mean Corpuscular HGB CONC 33.7 g/dL (32.0-36.0); Mean Corpuscular Hemoglobin 40.8 pg (27.0-31.0); Mean Platelet Volume 9.6 fL (7.4-10.4); Platelet Count 37 thou/uL (130-400); RBC Distribution Width 16.6 % (11.5-14.5); Red Blood Cell (RBC) Count 2.28 mill/uL (4.70-6.10); White Blood Cell (WBC) Count 5.3 thou/uL (4.8-10.8)
[2018-03-08 05:16] LABS: ALT (SGPT) 24 U/L (8-55); AST (SGOT) 60 U/L (5-34); Albumin 1.9 g/dL (3.5-5.0); Alkaline Phosphatase 117 U/L (40-150); Anion Gap 11 mmol/L (10-20); BUN (Urea Nitrogen) 14 mg/dL (8.4-25.7); Bilirubin, Total 6.5 mg/dL (0.2-1.2); Calc. Creatinine Clearance 63 mL/min (70-130); Calcium 7.7 mg/dL (7.8-10.44); Carbon Dioxide 22 mmol/L (22-29); Chloride 102 mmol/L (98-107); Estimated GFR-MDRD 56; Globulin 4.5 g/dL (2.4-3.5); Glucose 72 mg/dL (70-105); Potassium 4.5 mmol/L (3.5-5.1); Protein, Total 6.4 g/dL (6.0-8.3); Sodium 130 mmol/L (136-145)
[2018-03-08] MEDS: clonazePAM 1 MG TAB PO SCH ×2 (09:00→20:36)
[2018-03-08] MEDS: Propranolol 10 MG TAB PO SCH ×3 (09:00→20:35)
[2018-03-08] MEDS: Folic Acid 1 MG TAB PO SCH (09:00)
[2018-03-08] MEDS: Escitalopram Oxalate 10 mg Tablet PO SCH (09:00)
[2018-03-08] MEDS: Rifaximin 550 MG TAB PO SCH ×2 (09:01→20:35)
[2018-03-08] MEDS: Tamsulosin HCl 0.4 MG CAP PO SCH (09:01)
--- NOTE | 2018-03-08 15:32 | PDOC.PN ---
- Subjective Encounter Start Date: 03/08/18 Encounter Start Time: 07:40 Pt seen for followup re: alcohol withdrawal. feels slightly better. - Objective Resuscitation Status - Order Detail: 03/04/18 23:22 Resuscitation Status Routine Resuscitation Status: FULL: Full Resuscitation MAR Reviewed: Yes Vital Signs & Weight: Vital Signs (12 hours) Temp Pulse Resp BP BP Pulse Ox 03/08/18 15:27 102/66 03/08/18 11:52 98.2 F 81 16 103/64 94 L 03/08/18 08:44 111/68 03/08/18 08:15 97.9 F 78 18 111/68 96 03/08/18 04:00 110/65 Weight Weight 157 lb 14.4 oz I&O: 03/07/18 03/08/18 03/09/18 06:59 06:59 06:59 Intake Total 2231 771 Output Total 125 Balance 2231 646 Result Diagrams: 03/08/18 04:27 03/08/18 04:27 EKG Reviewed by me: Yes (Tele: NSR) Phys Exam - Physical Examination Constitutional: NAD HEENT: moist MMs Neck: supple Respiratory: clear to auscultation bilateral Cardiovascular: RRR Gastrointestinal: soft Neurological: moves all 4 limbs Psychiatric: normal affect Dx/Plan (1) Alcohol withdrawal syndrome Code(s): F10.239 - ALCOHOL DEPENDENCE WITH WITHDRAWAL, UNSPECIFIED Status: Acute Comment: will continue ASE protocol, PRN benzodiazepines (2) BPH (benign prostatic hyperplasia) Code(s): N40.0 - BENIGN PROSTATIC HYPERPLASIA WITHOUT LOWER URINRY TRACT SYMP Status: Chronic Comment: stable (3) Alcohol abuse Code(s): F10.10 - ALCOHOL ABUSE, UNCOMPLICATED Status: Chronic Comment: on thiamine. (4) Cirrhosis of liver Code(s): K74.60 - UNSPECIFIED CIRRHOSIS OF LIVER Status: Chronic Comment: stable (5) Coagulopathy Status: Chronic Comment: secondary to liver disease (6) Hypertension Code(s): I10 - ESSENTIAL (PRIMARY) HYPERTENSION Status: Chronic Qualifiers: Comment: controlled (7) Falls Code(s): W19.XXXA - UNSPECIFIED FALL, INITIAL ENCOUNTER Status: Chronic Comment: PT/OT evals appreciated (8) Acute worsening of stage 3 chronic kidney disease Code(s): N18.3 - CHRONIC KIDNEY DISEASE, STAGE 3 (MODERATE) Status: Resolved - Plan * . Review of Systems - Review of Systems Respiratory: negative: Cough, Shortness of Breath, SOB with Excertion, Pleuritic Pain, Wheezing Cardiovascular: negative: chest pain, palpitations, orthopnea, paroxysmal nocturnal dyspnea, edema, light headedness - Medications/Allergies Allergies/Adverse Reactions: Allergies Allergy/AdvReac Type Severity Reaction Status Date / Time No Known Allergies Allergy Verified 03/04/18 21:48 Medications: Current Medications Acetaminophen (Tylenol) 650 mg PO Q4H PRN PRN Reason: Headache/Fever/Mild Pain (1-3) Last Admin: 03/07/18 20:07 Dose: 650 mg Bisacodyl (Dulcolax) 10 mg PO DAILYPRN PRN PRN Reason: Constipation Bisacodyl (Dulcolax) 10 mg [place] DAILYPRN PRN PRN Reason: Constipation Clonazepam (Klonopin) 1 mg PO BID [facility] Last Admin: 03/08/18 09:00 Dose: 1 mg Escitalopram Oxalate (Lexapro) 10 mg PO DAILY [facility] Last Admin: 03/08/18 09:00 Dose: 10 mg Folic Acid (Folvite) 1 mg PO DAILY [facility] Last Admin: 03/08/18 09:00 Dose: 1 mg Sodium Chloride (Normal Saline 0.9%) 1,000 mls @ 75 mls/hr IV .[id number] [facility] Last Admin: 03/08/18 15:20 Dose: 1,000 mls Lorazepam (Ativan) 2 mg SLOW IVP Q4H PRN PRN Reason: Anxiety/Agitation Last Admin: 03/07/18 14:37 Dose: 2 mg Magnesium Oxide (Magnesium Oxide) 400 mg PO HS [facility] Last Admin: 03/07/18 20:06 Dose: 400 mg Ondansetron HCl (Zofran Odt) 8 mg PO Q8H PRN PRN Reason: Nausea Last Admin: 03/06/18 04:08 Dose: 8 mg Propranolol HCl (Inderal) 5 mg PO TID [facility] Last Admin: 03/08/18 15:26 Dose: 5 mg Rifaximin (Xifaxan) 550 mg PO BID [facility] Last Admin: 03/08/18 09:01 Dose: 550 mg Senna/Docusate Sodium (Senokot S) 2 tab PO BID PRN PRN Reason: Constipation Sodium Chloride (Flush - Normal Saline) 10 ml IVF Q12HR [facility] Last Admin: 03/08/18 09:01 Dose: Not Given Sodium Chloride (Flush - Normal Saline) 10 ml IVF PRN PRN PRN Reason: Saline Flush Last Admin: 03/06/18 21:39 Dose: 10 ml Tamsulosin HCl (Flomax) 0.4 mg PO DAILY [facility] Last Admin: 03/08/18 09:01 Dose: 0.4 mg Thiamine HCl (Thiamine) 100 mg PO DAILY [facility] Last Admin: 03/08/18 09:01 Dose: 100 mg Tramadol HCl (Ultram) 50 mg PO Q6H PRN PRN Reason: Pain 4-6 Last Admin: 03/07/18 20:07 Dose: 50 mg
[2018-03-08] MEDS: Magnesium Oxide 400 MG TAB PO SCH (20:36)
[2018-03-09] MEDS: traMADol HCl 50 MG TAB PO PRN ×2 (04:29→21:01)
[2018-03-09] MEDS: Folic Acid 1 MG TAB PO SCH (09:09)
[2018-03-09] MEDS: clonazePAM 1 MG TAB PO SCH ×2 (09:09→21:00)
[2018-03-09] MEDS: Escitalopram Oxalate 10 mg Tablet PO SCH (09:09)
[2018-03-09] MEDS: Rifaximin 550 MG TAB PO SCH ×2 (09:09→21:00)
[2018-03-09] MEDS: Propranolol 10 MG TAB PO SCH ×4 (09:09→21:00)
[2018-03-09] MEDS: Tamsulosin HCl 0.4 MG CAP PO SCH (09:09)
[2018-03-09] MEDS: Sodium Chloride 0.9% 1,000 ML IV SCH (09:10)
[2018-03-09] MEDS: Ondansetron ODT 8 MG TAB PO PRN (12:10)
--- NOTE | 2018-03-09 15:31 | PDOC.PN ---
- Subjective Encounter Start Date: 03/09/18 Encounter Start Time: 11:00 Pt seen for followup re: alcohol withdrawal. Says he feels weak overall. - Objective Resuscitation Status - Order Detail: 03/04/18 23:22 Resuscitation Status Routine Resuscitation Status: FULL: Full Resuscitation MAR Reviewed: Yes Vital Signs & Weight: Vital Signs (12 hours) Temp Pulse Pulse Resp BP BP BP 03/09/18 12:10 116/66 03/09/18 11:56 98.1 F 81 18 03/09/18 11:30 77 105/65 03/09/18 09:10 127/69 03/09/18 07:51 98.4 F 74 20 127/69 03/09/18 04:18 98.4 F 83 13 110/75 110/75 BP BP BP Pulse Ox 03/09/18 12:10 03/09/18 11:56 112/61 116/66 114/63 95 03/09/18 11:30 03/09/18 09:10 95 03/09/18 07:51 95 03/09/18 04:18 93 L Weight Weight 157 lb 14.4 oz I&O: 03/08/18 03/09/18 03/10/18 06:59 06:59 06:59 Intake Total 771 2840 Output Total 125 200 Balance 646 2640 Result Diagrams: 03/08/18 04:27 03/08/18 04:27 EKG Reviewed by me: Yes (Tele: NSR) Phys Exam - Physical Examination Constitutional: NAD HEENT: moist MMs icterus Neck: supple Respiratory: clear to auscultation bilateral Cardiovascular: RRR Gastrointestinal: positive bowel sounds Neurological: moves all 4 limbs Psychiatric: normal affect Dx/Plan (1) Alcohol withdrawal syndrome Code(s): F10.239 - ALCOHOL DEPENDENCE WITH WITHDRAWAL, UNSPECIFIED Status: Acute Comment: Improving, on ASE protocol, PRN benzodiazepines (2) BPH (benign prostatic hyperplasia) Code(s): N40.0 - BENIGN PROSTATIC HYPERPLASIA WITHOUT LOWER URINRY TRACT SYMP Status: Chronic Comment: stable (3) Alcohol abuse Code(s): F10.10 - ALCOHOL ABUSE, UNCOMPLICATED Status: Chronic Comment: continue thiamine. (4) Cirrhosis of liver Code(s): K74.60 - UNSPECIFIED CIRRHOSIS OF LIVER Status: Chronic Comment: stable (5) Coagulopathy Status: Chronic Comment: secondary to liver disease (6) Hypertension Code(s): I10 - ESSENTIAL (PRIMARY) HYPERTENSION Status: Chronic Qualifiers: Comment: controlled (7) Falls Code(s): W19.XXXA - UNSPECIFIED FALL, INITIAL ENCOUNTER Status: Chronic Comment: PT/OT evals appreciated, pt may need walker before going home (8) Acute worsening of stage 3 chronic kidney disease Code(s): N18.3 - CHRONIC KIDNEY DISEASE, STAGE 3 (MODERATE) Status: Resolved - Plan * . Review of Systems - Review of Systems Constitutional: weakness. negative: fever, chills, sweats, malaise Cardiovascular: negative: chest pain, palpitations, orthopnea, paroxysmal nocturnal dyspnea, edema, light headedness Gastrointestinal: negative: Nausea, Vomiting, Abdominal Pain, Diarrhea, Constipation, Melena, Hematochezia - Medications/Allergies Allergies/Adverse Reactions: Allergies Allergy/AdvReac Type Severity Reaction Status Date / Time No Known Allergies Allergy Verified 03/04/18 21:48 Medications: Current Medications Acetaminophen (Tylenol) 650 mg PO Q4H PRN PRN Reason: Headache/Fever/Mild Pain (1-3) Last Admin: 03/07/18 20:07 Dose: 650 mg Bisacodyl (Dulcolax) 10 mg PO DAILYPRN PRN PRN Reason: Constipation Bisacodyl (Dulcolax) 10 mg [place] DAILYPRN PRN PRN Reason: Constipation Clonazepam (Klonopin) 1 mg PO BID [facility] Last Admin: 03/09/18 09:09 Dose: 1 mg Escitalopram Oxalate (Lexapro) 10 mg PO DAILY [facility] Last Admin: 03/09/18 09:09 Dose: 10 mg Folic Acid (Folvite) 1 mg PO DAILY [facility] Last Admin: 03/09/18 09:09 Dose: 1 mg Sodium Chloride (Normal Saline 0.9%) 1,000 mls @ 75 mls/hr IV .[id number] [facility] Last Admin: 03/09/18 09:10 Dose: 1,000 mls Lorazepam (Ativan) 2 mg SLOW IVP Q4H PRN PRN Reason: Anxiety/Agitation Last Admin: 03/07/18 14:37 Dose: 2 mg Magnesium Oxide (Magnesium Oxide) 400 mg PO HS [facility] Last Admin: 03/08/18 20:36 Dose: 400 mg Ondansetron HCl (Zofran Odt) 8 mg PO Q8H PRN PRN Reason: Nausea Last Admin: 03/09/18 12:10 Dose: 8 mg Propranolol HCl (Inderal) 5 mg PO TID [facility] Last Admin: 03/09/18 09:09 Dose: 5 mg Rifaximin (Xifaxan) 550 mg PO BID [facility] Last Admin: 03/09/18 09:09 Dose: 550 mg Senna/Docusate Sodium (Senokot S) 2 tab PO BID PRN PRN Reason: Constipation Sodium Chloride (Flush - Normal Saline) 10 ml IVF Q12HR [facility] Last Admin: 03/09/18 09:10 Dose: 10 ml Sodium Chloride (Flush - Normal Saline) 10 ml IVF PRN PRN PRN Reason: Saline Flush Last Admin: 03/06/18 21:39 Dose: 10 ml Tamsulosin HCl (Flomax) 0.4 mg PO DAILY [facility] Last Admin: 03/09/18 09:09 Dose: 0.4 mg Thiamine HCl (Thiamine) 100 mg PO DAILY [facility] Last Admin: 03/09/18 09:09 Dose: 100 mg Tramadol HCl (Ultram) 50 mg PO Q6H PRN PRN Reason: Pain 4-6 Last Admin: 03/09/18 04:29 Dose: 50 mg
[2018-03-09] MEDS: Magnesium Oxide 400 MG TAB PO SCH (21:01)
[2018-03-10 06:05] LABS: ALT (SGPT) 24 U/L (8-55); AST (SGOT) 52 U/L (5-34); Albumin 1.9 g/dL (3.5-5.0); Alkaline Phosphatase 87 U/L (40-150); Anion Gap 8 mmol/L (10-20); BUN (Urea Nitrogen) 14 mg/dL (8.4-25.7); Bilirubin, Total 6.7 mg/dL (0.2-1.2); Calc. Creatinine Clearance 60 mL/min (70-130); Calcium 7.7 mg/dL (7.8-10.44); Carbon Dioxide 23 mmol/L (22-29); Chloride 104 mmol/L (98-107); Estimated GFR-MDRD 53; Globulin 4.2 g/dL (2.4-3.5); Glucose 89 mg/dL (70-105); Potassium 4.4 mmol/L (3.5-5.1); Protein, Total 6.1 g/dL (6.0-8.3); Sodium 131 mmol/L (136-145)
[2018-03-10 06:18] LABS: Hemoglobin 8.7 g/dL (14.0-18.0); Hypochromia SLIGHT = 6-15 cells (100X) (0-5/hpf); Lymphocytes 15 % (21-51); MDiff Complete? YES; Macrocytosis SLIGHT = 6-15 cells (100X) (0-5/hpf); Mean Corpuscular HGB CONC 33.5 g/dL (32.0-36.0); Mean Corpuscular Hemoglobin 40.7 pg (27.0-31.0); Mean Platelet Volume 8.9 fL (7.4-10.4); Monocytes 7 % (0-10); Neutrophil 78 % (42-75); Platelet Count 46 thou/uL (130-400); Platelet Morphology Comment Appears Decreased; RBC Distribution Width 16.6 % (11.5-14.5); Red Blood Cell (RBC) Count 2.12 mill/uL (4.70-6.10); White Blood Cell (WBC) Count 4.6 thou/uL (4.8-10.8)
[2018-03-10] MEDS: clonazePAM 1 MG TAB PO SCH ×2 (09:59→21:16)
[2018-03-10] MEDS: Propranolol 10 MG TAB PO SCH ×3 (09:59→21:16)
[2018-03-10] MEDS: Tamsulosin HCl 0.4 MG CAP PO SCH (09:59)
[2018-03-10] MEDS: Folic Acid 1 MG TAB PO SCH (09:59)
[2018-03-10] MEDS: Rifaximin 550 MG TAB PO SCH ×2 (09:59→21:16)
[2018-03-10] MEDS: Escitalopram Oxalate 10 mg Tablet PO SCH (09:59)
--- NOTE | 2018-03-10 13:55 | CT ---
NONCONTRAST HEAD CT: HISTORY: Fall 30 minutes ago. Posttraumatic pain to the back of the head. COMPARISON: 03/04/2018 FINDINGS: No parenchymal hemorrhage. No extraaxial hematoma. No midline shift. Basilar cisterns are patent. Age appropriate atrophy. Cortical ibarra white matter differentiation is preserved. Ventricles and s ulci are patent and symmetric. Stable atrophy of the cerebellar vermis and cerebellar hemisphere. C orrelate for possible usage of alcohol or seizure medication. The calvarium is intact. Adequate aeration of the sinuses and mastoid air cells. IMPRESSION: No intracranial posttraumatic sequela. POS: JENA
[2018-03-10] MEDS: traMADol HCl 50 MG TAB PO PRN (15:34)
--- NOTE | 2018-03-10 16:42 | ULT ---
ULTRASOUND ABDOMEN COMPLETE Kaur scale, doppler color flow and spectral analysis performed. 03/10/18 HISTORY: Pain. TECHNIQUE: Kaur-scale ultrasound evaluation of the liver, gallbladder, spleen, pancreas, common bile duct, kidne ys, abdominal aorta, and inferior vena cava (IVC). FINDINGS: There is no focal hepatic lesion. There is a nodular contour of the liver with a moderate degree of p stef hepatic ascites noted. There is echogenic debris within the gallbladder lumen. Gallbladder wall i s borderline approximating 3 mm. No focal splenic abnormality. Common duct is normal at 4 mm. No hydr onephrosis of the kidneys. Lindsey's sign is reported as negative by the operations supervisor. Doppler interrogation of the portal vein reveals absence of flow within the main portal vein. There is flow detected within the left portal vein. Right portal vein is not well interrogated. Findings ar e suspicious for portal vein thrombus. IMPRESSION: 1. Cirrhosis and ascites. 2. Gallbladder disease which may be chronic given the concomitant liver disease. Correlate clini edd. 3. Evidence of portal vein thrombus. Findings telephoned to patient's physician, Dax Lacey, at time of interpretation, 1520 hours, . Code CR
--- NOTE | 2018-03-10 16:55 | PDOC.PN ---
- Subjective Encounter Start Date: 03/10/18 Encounter Start Time: 16:53 Pt seen for followup re: portal vein thrombosis. Feels weak. c/o RUQ pain. - Objective Resuscitation Status - Order Detail: 03/04/18 23:22 Resuscitation Status Routine Resuscitation Status: FULL: Full Resuscitation Vital Signs & Weight: Vital Signs (12 hours) Temp Pulse Pulse Pulse Resp BP BP 03/10/18 15:25 98.8 F 81 12 03/10/18 13:17 98.3 F 81 16 03/10/18 11:46 98.4 F 79 20 03/10/18 11:08 79 79 111/66 134/67 03/10/18 07:43 98.3 F 78 20 BP BP Pulse Ox Pulse Ox 03/10/18 15:25 114/65 95 03/10/18 13:17 120/71 94 L 03/10/18 11:46 120/69 95 03/10/18 11:08 94 L 03/10/18 07:43 108/62 96 Weight Weight 176 lb 8 oz I&O: 03/09/18 03/10/18 03/11/18 06:59 06:59 06:59 Intake Total 2840 960 Output Total 200 Balance 2640 960 Result Diagrams: 03/10/18 05:23 03/10/18 05:23 Phys Exam - Physical Examination Constitutional: NAD icterus Neck: supple Respiratory: clear to auscultation bilateral Cardiovascular: RRR Gastrointestinal: soft, positive bowel sounds distention, mild RUQ tenderness, no guarding or rigidity Neurological: moves all 4 limbs Psychiatric: normal affect Dx/Plan (1) Portal vein thrombosis Code(s): I81 - PORTAL VEIN THROMBOSIS Status: Acute Comment: Plts low. Consult GI for opinion and help with management (2) Fall Code(s): W19.XXXA - UNSPECIFIED FALL, INITIAL ENCOUNTER Status: Acute Comment: Pt fell earlier today. CT brain nil acute. (3) BPH (benign prostatic hyperplasia) Code(s): N40.0 - BENIGN PROSTATIC HYPERPLASIA WITHOUT LOWER URINRY TRACT SYMP Status: Chronic Comment: stable (4) Alcohol abuse Code(s): F10.10 - ALCOHOL ABUSE, UNCOMPLICATED Status: Chronic Comment: continue thiamine. (5) Cirrhosis of liver Code(s): K74.60 - UNSPECIFIED CIRRHOSIS OF LIVER Status: Chronic Comment: stable (6) Coagulopathy Status: Chronic Comment: secondary to liver disease (7) Hypertension Code(s): I10 - ESSENTIAL (PRIMARY) HYPERTENSION Status: Chronic Qualifiers: Comment: controlled (8) Falls Code(s): W19.XXXA - UNSPECIFIED FALL, INITIAL ENCOUNTER Status: Chronic Comment: PT/OT evals appreciated, pt may need walker before going home (9) Acute worsening of stage 3 chronic kidney disease Code(s): N18.3 - CHRONIC KIDNEY DISEASE, STAGE 3 (MODERATE) Status: Resolved (10) Alcohol withdrawal syndrome Code(s): F10.239 - ALCOHOL DEPENDENCE WITH WITHDRAWAL, UNSPECIFIED Status: Resolved - Plan * . Review of Systems - Review of Systems Constitutional: negative: fever, chills, sweats, weakness, malaise Gastrointestinal: Abdominal Pain. negative: Nausea, Vomiting, Diarrhea, Constipation, Melena, Hematochezia - Medications/Allergies Allergies/Adverse Reactions: Allergies Allergy/AdvReac Type Severity Reaction Status Date / Time No Known Allergies Allergy Verified 03/04/18 21:48 Medications: Current Medications Acetaminophen (Tylenol) 650 mg PO Q4H PRN PRN Reason: Headache/Fever/Mild Pain (1-3) Last Admin: 03/07/18 20:07 Dose: 650 mg Bisacodyl (Dulcolax) 10 mg PO DAILYPRN PRN PRN Reason: Constipation Bisacodyl (Dulcolax) 10 mg [place] DAILYPRN PRN PRN Reason: Constipation Clonazepam (Klonopin) 1 mg PO BID [facility] Last Admin: 03/10/18 09:59 Dose: 1 mg Escitalopram Oxalate (Lexapro) 10 mg PO DAILY [facility] Last Admin: 03/10/18 09:59 Dose: 10 mg Folic Acid (Folvite) 1 mg PO DAILY [facility] Last Admin: 03/10/18 09:59 Dose: 1 mg Lorazepam (Ativan) 2 mg SLOW IVP Q4H PRN PRN Reason: Anxiety/Agitation Last Admin: 03/07/18 14:37 Dose: 2 mg Magnesium Oxide (Magnesium Oxide) 400 mg PO HS [facility] Last Admin: 03/09/18 21:01 Dose: 400 mg Ondansetron HCl (Zofran Odt) 8 mg PO Q8H PRN PRN Reason: Nausea Last Admin: 03/09/18 12:10 Dose: 8 mg Propranolol HCl (Inderal) 5 mg PO TID [facility] Last Admin: 03/10/18 15:27 Dose: 5 mg Rifaximin (Xifaxan) 550 mg PO BID [facility] Last Admin: 03/10/18 09:59 Dose: 550 mg Senna/Docusate Sodium (Senokot S) 2 tab PO BID PRN PRN Reason: Constipation Sodium Chloride (Flush - Normal Saline) 10 ml IVF Q12HR [facility] Last Admin: 03/10/18 10:00 Dose: 10 ml Sodium Chloride (Flush - Normal Saline) 10 ml IVF PRN PRN PRN Reason: Saline Flush Last Admin: 03/06/18 21:39 Dose: 10 ml Tamsulosin HCl (Flomax) 0.4 mg PO DAILY [facility] Last Admin: 03/10/18 09:59 Dose: 0.4 mg Thiamine HCl (Thiamine) 100 mg PO DAILY [facility] Last Admin: 03/10/18 09:58 Dose: 100 mg Tramadol HCl (Ultram) 50 mg PO Q6H PRN PRN Reason: Pain 4-6 Last Admin: 03/10/18 15:34 Dose: 50 mg
[2018-03-10] MEDS: Magnesium Oxide 400 MG TAB PO SCH (21:16)
[2018-03-11] MEDS: Rifaximin 550 MG TAB PO SCH ×2 (09:11→20:29)
[2018-03-11] MEDS: Tamsulosin HCl 0.4 MG CAP PO SCH (09:11)
[2018-03-11] MEDS: clonazePAM 1 MG TAB PO SCH ×2 (09:11→20:29)
[2018-03-11] MEDS: Folic Acid 1 MG TAB PO SCH (09:11)
[2018-03-11] MEDS: Escitalopram Oxalate 10 mg Tablet PO SCH (09:11)
[2018-03-11 10:19] LABS: Hemoglobin 9.2 g/dL (14.0-18.0); Mean Corpuscular HGB CONC 33.5 g/dL (32.0-36.0); Mean Corpuscular Hemoglobin 40.6 pg (27.0-31.0); Mean Platelet Volume 8.4 fL (7.4-10.4); Platelet Count 53 thou/uL (130-400); RBC Distribution Width 16.3 % (11.5-14.5); Red Blood Cell (RBC) Count 2.27 mill/uL (4.70-6.10); White Blood Cell (WBC) Count 4.7 thou/uL (4.8-10.8)
[2018-03-11 10:40] LABS: ALT (SGPT) 20 U/L (8-55); AST (SGOT) 49 U/L (5-34); Albumin 1.9 g/dL (3.5-5.0); Alkaline Phosphatase 84 U/L (40-150); Anion Gap 9 mmol/L (10-20); BUN (Urea Nitrogen) 13 mg/dL (8.4-25.7); Bilirubin, Total 6.9 mg/dL (0.2-1.2); Calc. Creatinine Clearance 66 mL/min (70-130); Calcium 7.9 mg/dL (7.8-10.44); Carbon Dioxide 21 mmol/L (22-29); Chloride 102 mmol/L (98-107); Estimated GFR-MDRD 52; Globulin 4.2 g/dL (2.4-3.5); Glucose 93 mg/dL (70-105); Potassium 4.3 mmol/L (3.5-5.1); Protein, Total 6.1 g/dL (6.0-8.3); Sodium 128 mmol/L (136-145)
[2018-03-11] MEDS: Propranolol 10 MG TAB PO SCH ×3 (11:22→20:29)
[2018-03-11] MEDS: traMADol HCl 50 MG TAB PO PRN ×2 (11:22→17:32)
[2018-03-11 11:48] LABS: Band 14 % (5-11); Eosinophils 5 % (0-10); Lymphocytes 29 % (21-51); MDiff Complete? YES; Macrocytosis MARKED = >30 cells (100X) (0-5/hpf); Monocytes 15 % (0-10); Neutrophil 35 % (42-75); Platelet Morphology Comment Appears Decreased; Polychromasia SLIGHT = 2-3 cells (100X) (0-2/hpf); Reactive Lymphocytes 1 % (0-10)
--- NOTE | 2018-03-11 11:51 | RAD ---
RIGHT HIP 2 VIEWS: Date: 03/11/18 HISTORY: Fall with hip pain. FINDINGS: There are mild arthritic changes of the hip without significant joint space narrowing. No fractures. IMPRESSION: No evidence of fracture. POS: OFF
--- NOTE | 2018-03-11 11:53 | RAD ---
AP PELVIS: Date: 03/11/18 HISTORY: Fall with pelvic pain. FINDINGS: The pelvic ring appears intact, without evidence of fracture. SI joints are symmetric. No diastasis o f the symphysis. Minimal arthritic changes of both hips are seen. IMPRESSION: No evidence of acute injury. POS: OFF
--- NOTE | 2018-03-11 11:53 | RAD ---
LUMBAR SPINE SERIES THREE VIEWS: HISTORY: Fall with back pain. FINDINGS: Vertebral bodies maintain normal height. Disk spaces are all relatively well preserved. There are s mall osteophytes seen along the course of the spine. Pedicles appear intact. IMPRESSION: No acute changes. POS: OFF
[2018-03-11] MEDS ORDERED: clonazePAM 0.5 MG TAB PO SCH (17:00)
--- NOTE | 2018-03-11 17:29 | PDOC.PN ---
- Subjective Encounter Start Date: 03/11/18 Encounter Start Time: 10:00 Pt seen for followup re: hip pain. c/o R hip and lower back pain since yesterday's fall. - Objective Resuscitation Status - Order Detail: 03/04/18 23:22 Resuscitation Status Routine Resuscitation Status: FULL: Full Resuscitation MAR Reviewed: Yes Vital Signs & Weight: Vital Signs (12 hours) Temp Pulse Resp BP Pulse Ox 03/11/18 08:00 97.9 F 74 18 114/75 95 Weight Weight 176 lb 8 oz I&O: 03/10/18 03/11/18 03/12/18 06:59 06:59 06:59 Intake Total 960 960 Output Total 2 Balance 960 958 Result Diagrams: 03/11/18 10:07 03/11/18 10:07 Additional Labs: Labs reviewed by me. Phys Exam - Physical Examination Constitutional: NAD HEENT: moist MMs Neck: supple Respiratory: clear to auscultation bilateral Cardiovascular: RRR Gastrointestinal: soft Neurological: moves all 4 limbs Psychiatric: normal affect Dx/Plan (1) Hip pain Code(s): M25.559 - PAIN IN UNSPECIFIED HIP Status: Acute Comment: check x- rays of R hip, pelvis and L-spine (2) Portal vein thrombosis Code(s): I81 - PORTAL VEIN THROMBOSIS Status: Acute Comment: GI consult pending (3) Fall Code(s): W19.XXXA - UNSPECIFIED FALL, INITIAL ENCOUNTER Status: Acute Comment: check x-rays of R hip, pelvis and L-spine (4) BPH (benign prostatic hyperplasia) Code(s): N40.0 - BENIGN PROSTATIC HYPERPLASIA WITHOUT LOWER URINRY TRACT SYMP Status: Chronic Comment: stable (5) Alcohol abuse Code(s): F10.10 - ALCOHOL ABUSE, UNCOMPLICATED Status: Chronic Comment: on thiamine. (6) Cirrhosis of liver Code(s): K74.60 - UNSPECIFIED CIRRHOSIS OF LIVER Status: Chronic Comment: stable (7) Coagulopathy Status: Chronic Comment: secondary to liver disease (8) Hypertension Code(s): I10 - ESSENTIAL (PRIMARY) HYPERTENSION Status: Chronic Qualifiers: Comment: controlled (9) Falls Code(s): W19.XXXA - UNSPECIFIED FALL, INITIAL ENCOUNTER Status: Chronic Comment: pt may need walker before going home (10) Acute worsening of stage 3 chronic kidney disease Code(s): N18.3 - CHRONIC KIDNEY DISEASE, STAGE 3 (MODERATE) Status: Resolved - Plan * . Review of Systems - Review of Systems Respiratory: negative: Cough, Shortness of Breath, SOB with Excertion, Pleuritic Pain, Wheezing Cardiovascular: negative: chest pain, palpitations, orthopnea, paroxysmal nocturnal dyspnea, edema, light headedness, other Musculoskeletal: Back Pain, Other (hip pain) - Medications/Allergies Allergies/Adverse Reactions: Allergies Allergy/AdvReac Type Severity Reaction Status Date / Time No Known Allergies Allergy Verified 03/04/18 21:48 Medications: Current Medications Acetaminophen (Tylenol) 650 mg PO Q4H PRN PRN Reason: Headache/Fever/Mild Pain (1-3) Last Admin: 03/07/18 20:07 Dose: 650 mg Bisacodyl (Dulcolax) 10 mg PO DAILYPRN PRN PRN Reason: Constipation Bisacodyl (Dulcolax) 10 mg [place] DAILYPRN PRN PRN Reason: Constipation Clonazepam (Klonopin) 1 mg PO BID [facility] Last Admin: 03/11/18 09:11 Dose: 1 mg Clonazepam (Klonopin) 0.5 mg PO NOW [facility] Stop: 03/11/18 19:00 Last Admin: 03/11/18 16:53 Dose: 0.5 mg Escitalopram Oxalate (Lexapro) 10 mg PO DAILY [facility] Last Admin: 03/11/18 09:11 Dose: 10 mg Folic Acid (Folvite) 1 mg PO DAILY [facility] Last Admin: 03/11/18 09:11 Dose: 1 mg Lorazepam (Ativan) 2 mg SLOW IVP Q4H PRN PRN Reason: Anxiety/Agitation Last Admin: 03/07/18 14:37 Dose: 2 mg Magnesium Oxide (Magnesium Oxide) 400 mg PO HS [facility] Last Admin: 03/10/18 21:16 Dose: 400 mg Ondansetron HCl (Zofran Odt) 8 mg PO Q8H PRN PRN Reason: Nausea Last Admin: 03/09/18 12:10 Dose: 8 mg Propranolol HCl (Inderal) 5 mg PO TID [facility] Last Admin: 03/11/18 15:50 Dose: 5 mg Rifaximin (Xifaxan) 550 mg PO BID [facility] Last Admin: 03/11/18 09:11 Dose: 550 mg Senna/Docusate Sodium (Senokot S) 2 tab PO BID PRN PRN Reason: Constipation Sodium Chloride (Flush - Normal Saline) 10 ml IVF Q12HR [facility] Last Admin: 03/11/18 09:11 Dose: 10 ml Sodium Chloride (Flush - Normal Saline) 10 ml IVF PRN PRN PRN Reason: Saline Flush Last Admin: 03/06/18 21:39 Dose: 10 ml Tamsulosin HCl (Flomax) 0.4 mg PO DAILY [facility] Last Admin: 03/11/18 09:11 Dose: 0.4 mg Thiamine HCl (Thiamine) 100 mg PO DAILY [facility] Last Admin: 03/11/18 09:11 Dose: 100 mg Tramadol HCl (Ultram) 50 mg PO Q6H PRN PRN Reason: Pain 4-6 Last Admin: 03/11/18 11:22 Dose: 50 mg
[2018-03-11] MEDS: Magnesium Oxide 400 MG TAB PO SCH (20:29)
[2018-03-12] MEDS: Lorazepam 2 MG/ML VIAL SLOW IVP PRN ×2 (00:20→20:23)
--- NOTE | 2018-03-12 00:43 | CON ---
DATE OF CONSULTATION: 03/11/2018 REASON FOR CONSULTATION: History of liver cirrhosis, chronic hepatitis C. He was admitted following a fall at home. The patient complained of abdominal pain and had an abdominal sonogram. The sonogram shows portal vein thrombosis. HISTORY OF PRESENT ILLNESS: Mr. Norris Resendiz is a 57-year-old male who is known to me from before. The patient has known liver cirrhosis, ascites, esophageal varices and portal gastropathy. The patient has seen Dr. Carlos Matta before. The patient started seeing me in 2016 because his insurance does not cover Dr. Matta office visit. The patient is very poorly complaint. The patient drinks alcohol very heavily, and he is to quit drinking in 2017. He was seeing me from 2016 off and on until 07/2017. He stopped coming to me about 7 months ago. The patient takes Xifaxan and also lactulose for his liver disease. He was also taking Lasix and Aldactone. The patient has a history of chronic hepatitis C and he was started on Epclusa in 2016. He took it for 6 weeks and certainly he stopped taking it. He cannot tell me if he quit taking it and subsequently admitted not taking it for 6 weeks. He says the medicine made him sick, but he is not able to specify exactly what happened. The patient is very poorly compliant with office visit and also following instructions. As mentioned earlier, he had not seen me since 07/2017. The patient quit drinking alcohol for a while and started drinking heavy alcohol intake subsequently. He says he did not come back to the office because he has some in the family days ago and had stayed in [place] for a while. He has no history of hematemesis, melena, nausea, or vomiting. He just complained of generalized weakness, fatigue, etc. He has no relevant history. ALLERGIES: NONE. SOCIAL HISTORY: The patient is a former smoker. History of alcohol abuse and quit drinking for 1-1/2 year and started drinking heavily again. Denied history of drug abuse. MEDICAL ILLNESSES: 1. Hypertension. 2. Liver cirrhosis. 3. Chronic hepatitis C. 4. Ascites, esophageal varices. 5. Gallstones. 6. Depression. 7. Chronic anxiety. PAST SURGICAL HISTORY: 1. Right hand surgery. 2. Has had paracentesis. 3. History of EGD in the past for upper GI bleeding. MEDICATIONS: List reviewed, which include; 1. Magnesium oxide. 2. Tamsulosin. 3. Furosemide. 4. Aldactone. 5. Spironolactone. 6. Folic acid. 7. Thiamine. 8. Xifaxan. 9. Propranolol. 10. Lexapro. 11. Klonopin. REVIEW OF SYSTEMS: CONSTITUTIONAL: No history of fever. No weight loss. He has poor exercise tolerance and now fatigue and tiredness. EYES: No diplopia. No visual impairment. EARS: No pain or hearing loss. NOSE: No nose bleed. THROAT: No sore throat or any difficulty swallowing. LUNGS: No difficulty breathing, chronic cough, or hemoptysis. CARDIOVASCULAR SYSTEM: No chest pain. No palpitations. No orthopnea or PND. GI: As in history of present illness. : History of BPH and does have some nocturia. MUSCULOSKELETAL: History of back pain and arthralgias. PSYCHIATRIC: History of depression and anxiety. PHYSICAL EXAMINATION: GENERAL: He appears comfortable. He is awake, alert, and communicative. He is able to recognize me as soon I walked into his room. He is in no distress. He is icteric. VITAL SIGNS: Temperature 98 degrees Fahrenheit, pulse is 74, and blood pressure 105/68. NECK: Supple. No adenitis or thyromegaly noted. CARDIOVASCULAR: First and second heart sounds heard. LUNGS: Clear to auscultation. ABDOMEN: Mildly distended, but soft. Abdomen is nontender. There is no organomegaly. No masses. Bowel sounds normal. EXTREMITIES: Reveal no edema. LABORATORY DATA: Dated 03/10/2018; WBC 4600, hemoglobin 8.7, hematocrit 24.9, MCV 122, and platelet count is 46,000, polymorphs 78, lymphocytes 15. PT is 26.1, INR is 2.4. Chemistry panel; bilirubin 6.9, AST is 49, ALT 20, alkaline phosphatase 84. Albumin 1.9. Electrolytes; serum sodium 128, potassium 4.3, chloride 102, bicarb 21, BUN is 13, and creatinine is 1.40. DIAGNOSTIC DATA: Abdominal sonogram does show portal vein thrombosis. The patient has had negative sonogram 2 years ago and at that time, he had no venous thrombosis. Also, he had CAT of the abdomen in 2017 in [facility]. IMPRESSION: 1. Liver cirrhosis, chronic hepatitis C. 2. Esophageal varices diagnosed in the past. 3. Anxiety and depression. 4. Continued alcohol abuse. 5. History of recent falls off and on. In fact, he fell down in the bathroom today. RECOMMENDATION: I do not see any benefit in treating the portal vein thrombosis in this patient. He is poorly compliant and also has risk for falling down and has some internal bleeding. I would really hold off any anticoagulation because of the history of esophageal varices in the past. There are few reasons for not starting the patient; 1. Poor compliance. 2. History of recent falls. 3. He is on Lasix. Check alpha fetoprotein level. Consider an MRI of the abdomen. Job ID: [id number]
[2018-03-12] MEDS: Rifaximin 550 MG TAB PO SCH ×2 (08:33→20:21)
[2018-03-12] MEDS: Propranolol 10 MG TAB PO SCH ×3 (08:33→20:22)
[2018-03-12] MEDS: Tamsulosin HCl 0.4 MG CAP PO SCH (08:33)
[2018-03-12] MEDS: Folic Acid 1 MG TAB PO SCH (08:34)
[2018-03-12] MEDS: clonazePAM 1 MG TAB PO SCH (08:34)
[2018-03-12] MEDS: Escitalopram Oxalate 10 mg Tablet PO SCH (08:34)
[2018-03-12] MEDS ORDERED: Gadobenate Dimeglumine 529 MG/1 ML (20ML VIAL) ONE (10:11)
--- NOTE | 2018-03-12 14:14 | MRI ---
MRI OF THE ABDOMEN WITH AND WITHOUT CONTRAST: INDICATION: History of cirrhosis of the liver, concern for underlying hepatic malignancy. TECHNIQUE: Multiplanar, multisequence MR images were obtained of the abdomen with and without contrast utilizing liver mass protocol. 14 cc of MultiHance was administered for the examination. FINDINGS: There is prominent ascites. There are small bilateral pleural effusions. There is suspected bibasil ar volume loss. There is bilateral male gynecomastia. There is cirrhotic morphology of the liver. There is splenomegaly measuring up to 13.8 cm. No suspi cious arterially enhancing lesion is seen within the liver. Respiratory motion artifact slightly elizondo its image detail. The visualized aspects of the pancreas, adrenal glands, and kidneys appear within normal limits. No definite pathologically enlarged lymph nodes are evident. IMPRESSION: 1. Cirrhosis with findings of portal hypertension and moderate ascites. 2. Small bilateral pleural effusions and bibasilar atelectasis. 3. No suspicious arterial enhancing lesion is evident to suggest the presence of underlying hepatic malignant. POS: [facility]
[2018-03-12] MEDS ORDERED: Spironolactone 25 MG TAB PO SCH (17:00)
[2018-03-12] MEDS ORDERED: Furosemide 20 MG TAB PO SCH (17:00)
--- NOTE | 2018-03-12 17:01 | PDOC.PN ---
- Subjective Encounter Start Date: 03/12/18 Encounter Start Time: 17:00 Subjective: feels abdomen is tight and distended and painful - Objective Resuscitation Status - Order Detail: 03/04/18 23:22 Resuscitation Status Routine Resuscitation Status: FULL: Full Resuscitation MAR Reviewed: Yes Vital Signs & Weight: Vital Signs (12 hours) Temp Pulse Resp BP Pulse Ox 03/12/18 08:00 98 F 89 18 115/70 93 L Weight Weight 176 lb 8 oz I&O: 03/11/18 03/12/18 03/13/18 06:59 06:59 06:59 Intake Total 960 480 480 Output Total 2 Balance 958 480 480 Result Diagrams: 03/11/18 10:07 03/11/18 10:07 Additional Labs: Accuchecks 03/12/18 05:09 POC Glucose 79 Laboratory Tests 03/04/18 03/04/18 03/04/18 18:30 18:30 18:30 Hgb Plt Count 41 L INR 2.4 Creatinine 2.35 H Total Bilirubin 6.5 H Vitamin B12 Folate 03/04/18 03/04/18 03/05/18 23:41 23:41 04:52 Hgb Plt Count INR Creatinine 2.16 H 2.03 H Total Bilirubin Vitamin B12 1680 H Folate 2.80 L 03/05/18 03/06/18 03/06/18 04:52 04:49 04:50 Hgb Plt Count 32 L 37 L INR Creatinine 1.65 H Total Bilirubin 8.0 H Vitamin B12 Folate 03/07/18 03/07/18 03/08/18 04:44 04:44 04:27 Hgb Plt Count 32 L INR Creatinine 1.48 H 1.32 H Total Bilirubin 7.0 H 6.5 H Vitamin B12 Folate 03/08/18 03/10/18 03/10/18 04:27 05:23 05:23 Hgb 9.3 L 8.7 L Plt Count 37 L 46 L INR Creatinine 1.38 H Total Bilirubin 6.7 H Vitamin B12 Folate 03/11/18 03/11/18 10:07 10:07 Hgb 9.2 L Plt Count 53 L INR Creatinine 1.40 H Total Bilirubin 6.9 H Vitamin B12 Folate Phys Exam - Physical Examination somnolent HEENT: PERRLA, moist MMs, oral pharynx no lesions Neck: no nodes Respiratory: no wheezing, no rales Cardiovascular: RRR, no significant murmur Gastrointestinal: soft distenede w +ve fluid wave Musculoskeletal: no edema, pulses present Neurological: non-focal, normal sensation, moves all 4 limbs Psychiatric: normal affect, A&O x 3 Skin: no rash Dx/Plan (1) Portal vein thrombosis Code(s): I81 - PORTAL VEIN THROMBOSIS Status: Acute Comment: GI consult pending (2) Hyponatremia Code(s): E87.1 - HYPO-OSMOLALITY AND HYPONATREMIA Status: Resolved (3) Acute worsening of stage 3 chronic kidney disease Code(s): N18.3 - CHRONIC KIDNEY DISEASE, STAGE 3 (MODERATE) Status: Resolved (4) Ascites Code(s): R18.8 - OTHER ASCITES Status: Chronic Qualifiers: Ascites type: due to alcoholic cirrhosis Qualified Code(s): K70.31 - Alcoholic cirrhosis of liver with ascites Comment: restart diuretics (5) Falls Code(s): W19.XXXA - UNSPECIFIED FALL, INITIAL ENCOUNTER Status: Chronic Comment: pt may need walker before going home (6) Hepatitis C infection Code(s): B19.20 - UNSPECIFIED VIRAL HEPATITIS C WITHOUT HEPATIC COMA Status: Chronic (7) Thrombocytopenia Code(s): D69.6 - THROMBOCYTOPENIA, UNSPECIFIED Status: Chronic (8) Varices of esophagus determined by endoscopy Code(s): I85.00 - ESOPHAGEAL VARICES WITHOUT BLEEDING Status: Chronic (9) Alcohol abuse Code(s): F10.10 - ALCOHOL ABUSE, UNCOMPLICATED Status: Chronic Comment: on thiamine. (10) BPH (benign prostatic hyperplasia) Code(s): N40.0 - BENIGN PROSTATIC HYPERPLASIA WITHOUT LOWER URINRY TRACT SYMP Status: Chronic Comment: stable (11) Chronic pain syndrome Code(s): G89.4 - CHRONIC PAIN SYNDROME Status: Chronic (12) Coagulopathy Status: Chronic Comment: secondary to liver disease (13) Hypertension Code(s): I10 - ESSENTIAL (PRIMARY) HYPERTENSION Status: Chronic Qualifiers: Comment: controlled (14) Macrocytic anemia Code(s): D53.9 - NUTRITIONAL ANEMIA, UNSPECIFIED Status: Chronic (15) Portal hypertension Code(s): K76.6 - PORTAL HYPERTENSION Status: Chronic (16) Protein-calorie malnutrition, moderate Code(s): E44.0 - MODERATE PROTEIN-CALORIE MALNUTRITION Status: Chronic - Plan plan discussed w/ family, DVT proph w/SCDs restart diuretics and monitor renal Fx -: sodium low likley due to Third spacing from cirrhosis.Restric free water. -: Check ammonia. start lactulose.? Hepatic encephalopathy.stop Klonopin -: am labs. -: Discussed w GI.MRI w/o any evidence of malignancy * . DC in next 24-48 hrs Review of Systems - Review of Systems Constitutional: weakness, malaise. negative: fever, chills, sweats, other ENT: negative: Ear Pain, Ear Discharge, Nose Pain, Nose Discharge, Nose Congestion, Mouth Pain, Mouth Swelling, Throat Pain, Throat Swelling, Other Respiratory: negative: Cough, Dry, Shortness of Breath, Hemoptysis, SOB with Excertion, Pleuritic Pain, Sputum, Wheezing Cardiovascular: negative: chest pain, palpitations, orthopnea, paroxysmal nocturnal dyspnea, edema, light headedness, other Gastrointestinal: Nausea, Abdominal Pain Genitourinary: negative: Dysuria, Frequency, Incontinence, Hematuria, Retention , Other Musculoskeletal: negative: Neck Pain, Shoulder Pain, Arm Pain, Back Pain, Hand Pain, Leg Pain, Foot Pain, Other Neurological: negative: Weakness, Numbness, Incoordination, Change in Speech, Confusion, Seizures, Other - Medications/Allergies Allergies/Adverse Reactions: Allergies Allergy/AdvReac Type Severity Reaction Status Date / Time No Known Allergies Allergy Verified 03/04/18 21:48 Medications: Current Medications Acetaminophen (Tylenol) 650 mg PO Q4H PRN PRN Reason: Headache/Fever/Mild Pain (1-3) Last Admin: 03/07/18 20:07 Dose: 650 mg Bisacodyl (Dulcolax) 10 mg PO DAILYPRN PRN PRN Reason: Constipation Bisacodyl (Dulcolax) 10 mg [place] DAILYPRN PRN PRN Reason: Constipation Escitalopram Oxalate (Lexapro) 10 mg PO DAILY [facility] Last Admin: 03/12/18 08:34 Dose: 10 mg Folic Acid (Folvite) 1 mg PO DAILY [facility] Last Admin: 03/12/18 08:34 Dose: 1 mg Furosemide (Lasix) 20 mg PO DAILY [facility] Furosemide (Lasix) 20 mg PO ONE [facility] Lactulose (Lactulose) 20 gm PO QID PRN PRN Reason: Constipation Lorazepam (Ativan) 2 mg SLOW IVP Q4H PRN PRN Reason: Anxiety/Agitation Last Admin: 03/12/18 00:20 Dose: 2 mg Magnesium Oxide (Magnesium Oxide) 400 mg PO HS [facility] Last Admin: 03/11/18 20:29 Dose: 400 mg Non-Formulary Medication (Spironolactone [Spironolactone]) 50 mg PO DAILY [facility] Ondansetron HCl (Zofran Odt) 8 mg PO Q8H PRN PRN Reason: Nausea Last Admin: 03/09/18 12:10 Dose: 8 mg Propranolol HCl (Inderal) 5 mg PO TID [facility] Last Admin: 03/12/18 14:27 Dose: 5 mg Rifaximin (Xifaxan) 550 mg PO BID [facility] Last Admin: 03/12/18 08:33 Dose: 550 mg Senna/Docusate Sodium (Senokot S) 2 tab PO BID PRN PRN Reason: Constipation Sodium Chloride (Flush - Normal Saline) 10 ml IVF Q12HR [facility] Last Admin: 03/12/18 08:34 Dose: 10 ml Sodium Chloride (Flush - Normal Saline) 10 ml IVF PRN PRN PRN Reason: Saline Flush Last Admin: 03/06/18 21:39 Dose: 10 ml Spironolactone (Aldactone) 50 mg PO ONE [facility] Tamsulosin HCl (Flomax) 0.4 mg PO DAILY [facility] Last Admin: 03/12/18 08:33 Dose: 0.4 mg Thiamine HCl (Thiamine) 100 mg PO DAILY [facility] Last Admin: 03/12/18 08:34 Dose: 100 mg Tramadol HCl (Ultram) 50 mg PO Q6H PRN PRN Reason: Pain 4-6 Last Admin: 03/11/18 17:32 Dose: 50 mg
[2018-03-12] MEDS: Magnesium Oxide 400 MG TAB PO SCH (20:22)
[2018-03-12] MEDS: Acetaminophen 325 MG TAB PO PRN (20:22)
[2018-03-13] MEDS: Lorazepam 2 MG/ML VIAL SLOW IVP PRN ×2 (00:20→05:34)
[2018-03-13] MEDS: traMADol HCl 50 MG TAB PO PRN (02:02)
[2018-03-13 06:03] VITALS: TEMP 98.1
[2018-03-13] MEDS: Diazepam 5 MG TAB PO SCH ×2 (06:26→14:34)
[2018-03-13 07:04] LABS: ALT (SGPT) 20 U/L (8-55); AST (SGOT) 51 U/L (5-34); Albumin 1.9 g/dL (3.5-5.0); Alkaline Phosphatase 82 U/L (40-150); Anion Gap 11 mmol/L (10-20); BUN (Urea Nitrogen) 15 mg/dL (8.4-25.7); Bilirubin, Total 7.1 mg/dL (0.2-1.2); Calc. Creatinine Clearance 63 mL/min (70-130); Calcium 8.2 mg/dL (7.8-10.44); Carbon Dioxide 19 mmol/L (22-29); Chloride 104 mmol/L (98-107); Estimated GFR-MDRD 49; Globulin 4.1 g/dL (2.4-3.5); Glucose 72 mg/dL (70-105); Potassium 4.3 mmol/L (3.5-5.1); Sodium 130 mmol/L (136-145)
[2018-03-13] MEDS: Folic Acid 1 MG TAB PO SCH (07:35)
[2018-03-13] MEDS: Rifaximin 550 MG TAB PO SCH (07:35)
[2018-03-13] MEDS: Tamsulosin HCl 0.4 MG CAP PO SCH (07:35)
[2018-03-13] MEDS: Propranolol 10 MG TAB PO SCH ×2 (07:36→14:34)
[2018-03-13] MEDS: Escitalopram Oxalate 10 mg Tablet PO SCH (07:36)
[2018-03-13 08:44] VITALS: BP 106/69
[2018-03-13] MEDS ORDERED: Furosemide 20 MG TAB PO SCH (09:00)
[2018-03-13] MEDS ORDERED: Spironolactone 25 MG TAB PO SCH (09:00)
--- NOTE | 2018-03-13 13:16 | EKG ---
Test Reason : Blood Pressure : / mmHG Vent. Rate : 074 BPM Atrial Rate : 074 BPM P-R Int : 134 ms QRS Dur : 100 ms QT Int : 452 ms P-R-T Axes : -09 038 023 degrees QTc Int : 501 ms Normal sinus rhythm Prolonged QT Abnormal ECG Confirmed by RUBEN RUFFIN DO ([id number]), book or script editor HALLIE ARREDONDO ([id number]) on 03/13/2018 1:16:03 PM Referred By: Confirmed By:RUBEN RUFFIN DO
--- NOTE | 2018-03-13 15:14 | PDOC.PN ---
- Subjective Encounter Start Date: 03/13/18 Encounter Start Time: 15:13 Subjective: no new complaints. walked earlier in hallways - Objective Resuscitation Status - Order Detail: 03/04/18 23:22 Resuscitation Status Routine Resuscitation Status: FULL: Full Resuscitation MAR Reviewed: Yes Vital Signs & Weight: Vital Signs (12 hours) Temp Pulse Resp BP BP BP Pulse Ox 03/13/18 08:00 98.1 F 74 18 106/69 95 03/13/18 06:02 98.1 F 79 16 107/73 93 L 03/13/18 04:00 107/73 Weight Weight 176 lb 8 oz I&O: 03/12/18 03/13/18 03/14/18 06:59 06:59 06:59 Intake Total 480 880 480 Balance 480 880 480 Result Diagrams: 03/11/18 10:07 03/13/18 06:30 Additional Labs: Laboratory Tests 03/08/18 03/10/18 03/11/18 04:27 05:23 10:07 Creatinine 1.32 H 1.38 H 1.40 H Ammonia Tumor Marker AFP 03/12/18 03/12/18 03/13/18 14:26 17:17 06:30 Creatinine 1.47 H Ammonia 46 Tumor Marker AFP 17.3 H Phys Exam - Physical Examination Constitutional: NAD HEENT: PERRLA, moist MMs, sclera anicteric, oral pharynx no lesions Neck: no nodes, no JVD, supple, full ROM Respiratory: no wheezing, no rales, no rhonchi, clear to auscultation bilateral Cardiovascular: RRR, no significant murmur, no rub Gastrointestinal: soft, non-tender, positive bowel sounds distended Musculoskeletal: no edema, pulses present Neurological: non-focal, normal sensation, moves all 4 limbs Psychiatric: normal affect, A&O x 3 Dx/Plan (1) Portal vein thrombosis Code(s): I81 - PORTAL VEIN THROMBOSIS Status: Acute Comment: GI consult pending (2) Hyponatremia Code(s): E87.1 - HYPO-OSMOLALITY AND HYPONATREMIA Status: Resolved (3) Acute worsening of stage 3 chronic kidney disease Code(s): N18.3 - CHRONIC KIDNEY DISEASE, STAGE 3 (MODERATE) Status: Resolved (4) Ascites Code(s): R18.8 - OTHER ASCITES Status: Chronic Qualifiers: Ascites type: due to alcoholic cirrhosis Qualified Code(s): K70.31 - Alcoholic cirrhosis of liver with ascites Comment: restart diuretics (5) Falls Code(s): W19.XXXA - UNSPECIFIED FALL, INITIAL ENCOUNTER Status: Chronic Comment: pt may need walker before going home (6) Hepatitis C infection Code(s): B19.20 - UNSPECIFIED VIRAL HEPATITIS C WITHOUT HEPATIC COMA Status: Chronic (7) Thrombocytopenia Code(s): D69.6 - THROMBOCYTOPENIA, UNSPECIFIED Status: Chronic (8) Varices of esophagus determined by endoscopy Code(s): I85.00 - ESOPHAGEAL VARICES WITHOUT BLEEDING Status: Chronic (9) Alcohol abuse Code(s): F10.10 - ALCOHOL ABUSE, UNCOMPLICATED Status: Chronic Comment: on thiamine. (10) BPH (benign prostatic hyperplasia) Code(s): N40.0 - BENIGN PROSTATIC HYPERPLASIA WITHOUT LOWER URINRY TRACT SYMP Status: Chronic Comment: stable (11) Chronic pain syndrome Code(s): G89.4 - CHRONIC PAIN SYNDROME Status: Chronic (12) Coagulopathy Status: Chronic Comment: secondary to liver disease (13) Hypertension Code(s): I10 - ESSENTIAL (PRIMARY) HYPERTENSION Status: Chronic Qualifiers: Comment: controlled (14) Macrocytic anemia Code(s): D53.9 - NUTRITIONAL ANEMIA, UNSPECIFIED Status: Chronic (15) Portal hypertension Code(s): K76.6 - PORTAL HYPERTENSION Status: Chronic (16) Protein-calorie malnutrition, moderate Code(s): E44.0 - MODERATE PROTEIN-CALORIE MALNUTRITION Status: Chronic - Plan DVT proph w/SCDs DC home.OP PT -: home meds retsarted -: sodium and renal Fx and acsites better. ammonia NL -: Alcohal abstinence advised strongly -: f/u w PCP * . Review of Systems - Review of Systems Constitutional: weakness Eyes: negative: Pain, Vision Change, Conjunctivae Inflammation, Eyelid Inflammation, Redness, Other ENT: negative: Ear Pain, Ear Discharge, Nose Pain, Nose Discharge, Nose Congestion, Mouth Pain, Mouth Swelling, Throat Pain, Throat Swelling, Other Respiratory: negative: Cough, Dry, Shortness of Breath, Hemoptysis, SOB with Excertion, Pleuritic Pain, Sputum, Wheezing Cardiovascular: negative: chest pain, palpitations, orthopnea, paroxysmal nocturnal dyspnea, edema, light headedness, other Gastrointestinal: negative: Nausea, Vomiting, Abdominal Pain, Diarrhea, Constipation, Melena, Hematochezia, Other Genitourinary: negative: Dysuria, Frequency, Incontinence, Hematuria, Retention , Other Musculoskeletal: negative: Neck Pain, Shoulder Pain, Arm Pain, Back Pain, Hand Pain, Leg Pain, Foot Pain, Other Neurological: negative: Weakness, Numbness, Incoordination, Change in Speech, Confusion, Seizures, Other - Medications/Allergies Allergies/Adverse Reactions: Allergies Allergy/AdvReac Type Severity Reaction Status Date / Time No Known Allergies Allergy Verified 03/04/18 21:48 Medications: Current Medications Acetaminophen (Tylenol) 650 mg PO Q4H PRN PRN Reason: Headache/Fever/Mild Pain (1-3) Last Admin: 03/12/18 20:22 Dose: 650 mg Bisacodyl (Dulcolax) 10 mg PO DAILYPRN PRN PRN Reason: Constipation Bisacodyl (Dulcolax) 10 mg [place] DAILYPRN PRN PRN Reason: Constipation Diazepam (Valium) 5 mg PO Q8H [facility] Last Admin: 03/13/18 14:34 Dose: 5 mg Escitalopram Oxalate (Lexapro) 10 mg PO DAILY [facility] Last Admin: 03/13/18 07:36 Dose: 10 mg Folic Acid (Folvite) 1 mg PO DAILY [facility] Last Admin: 03/13/18 07:35 Dose: 1 mg Furosemide (Lasix) 20 mg PO DAILY [facility] Last Admin: 03/13/18 07:36 Dose: 20 mg Lactulose (Lactulose) 20 gm PO QID PRN PRN Reason: Constipation Lorazepam (Ativan) 2 mg SLOW IVP Q4H PRN PRN Reason: Anxiety/Agitation Last Admin: 03/13/18 05:34 Dose: 2 mg Magnesium Oxide (Magnesium Oxide) 400 mg PO HS [facility] Last Admin: 03/12/18 20:22 Dose: 400 mg Ondansetron HCl (Zofran Odt) 8 mg PO Q8H PRN PRN Reason: Nausea Last Admin: 03/09/18 12:10 Dose: 8 mg Propranolol HCl (Inderal) 5 mg PO TID [facility] Last Admin: 03/13/18 14:34 Dose: 5 mg Rifaximin (Xifaxan) 550 mg PO BID [facility] Last Admin: 03/13/18 07:35 Dose: 550 mg Senna/Docusate Sodium (Senokot S) 2 tab PO BID PRN PRN Reason: Constipation Sodium Chloride (Flush - Normal Saline) 10 ml IVF Q12HR [facility] Last Admin: 03/13/18 07:36 Dose: 10 ml Sodium Chloride (Flush - Normal Saline) 10 ml IVF PRN PRN PRN Reason: Saline Flush Last Admin: 03/06/18 21:39 Dose: 10 ml Spironolactone (Aldactone) 50 mg PO DAILY [facility] Last Admin: 03/13/18 07:36 Dose: 50 mg Tamsulosin HCl (Flomax) 0.4 mg PO DAILY [facility] Last Admin: 03/13/18 07:35 Dose: 0.4 mg Thiamine HCl (Thiamine) 100 mg PO DAILY [facility] Last Admin: 03/13/18 07:35 Dose: 100 mg Tramadol HCl (Ultram) 50 mg PO Q6H PRN PRN Reason: Pain 4-6 Last Admin: 03/13/18 02:02 Dose: 50 mg
--- NOTE | 2018-03-14 02:16 | DIS ---
DATE OF ADMISSION: 03/04/2018 DATE OF DISCHARGE: 03/13/2018 DISCHARGE DISPOSITION: Home with outpatient physical therapy. DICTATIONS ENDS HERE. Job ID: [id number]
--- NOTE | 2018-03-14 02:25 | DIS ---
DATE OF ADMISSION: 03/05/2018 DATE OF DISCHARGE: 03/13/2018 PRIMARY CARE PHYSICIAN: Dr. Patricia Whitney. DISCHARGE DISPOSITION: Home with outpatient physical therapy. DISCHARGE DIAGNOSES: 1. Portal vein thrombosis. Not a candidate for anticoagulation due to thrombocytopenia, cirrhosis, and multiple falls. 2. Hyponatremia secondary to cirrhosis, resolved. 3. Acute on chronic kidney disease, resolved. 4. Ascites, chronic, secondary to alcoholic cirrhosis. 5. Multiple falls. 6. Chronic hepatitis C infection. 7. Thrombocytopenia due to cirrhosis. 8. Esophageal varices due to cirrhosis. 9. Ongoing alcohol abuse. 10. BPH. 11. Chronic pain syndrome. 12. Coagulopathy of liver disease. 13. Hypertension. 14. Macrocytic anemia of liver disease. 15. Moderate protein-calorie malnutrition. DISCHARGE MEDICATIONS: Resume home medications as follows: 1. Zofran p.r.n. 2. Lexapro 10 mg daily. 3. Folic acid 1 mg daily. 4. Lasix 20 mg daily. 5. Aldactone 50 mg daily. 6. Xifaxan 550 mg p.o. b.i.d. 7. Propranolol 5 mg p.o. t.i.d. 8. Tamsulosin 0.4 mg daily. 9. Thiamine 100 mg daily. 10. Zofran p.r.n. 11. Lactulose 20 g daily titrated to 2 to 3 soft stools on a daily basis. Please note that I have requested them to stop the Klonopin because of severe liver cirrhosis and history of alcoholism, but at this time, the family thinks that he needs it. I am not sure if this medication should be refilled. In my opinion, he should not be on long acting benzodiazepines. CONSULTATION: In-house consultation Gastroenterology, Dr. De La Cruz. PROCEDURES DONE IN THE HOSPITAL: 1. CT scan of the brain upon presentation, which is negative for any acute intracranial hemorrhage or mass-effect or infarction. 2. CT scan of the cervical spine upon presentation which shows no subluxation or fracture. 3. Hip x-ray, which once again is negative for evidence of any fractures. He has changes of osteonecrosis involving the left femoral head with possible associated osteochondral fragment. Nonemergent MRI is recommended. 4. Abdominal ultrasound on 03/10/2018 showed cirrhosis, ascites, and portal vein thrombosis. 5. Repeat CT scan of the brain on 03/10/2018, which once again is negative for any intracranial posttraumatic sequelae. 6. Lumbar spinal x-ray which is negative for any acute changes. 7. Repeat hip x-ray, 03/11/2018, which shows no evidence of fracture. 8. Pelvic x-ray, 03/11/2018, which shows no acute injury. 9. Abdominal MRI, which shows no evidence of liver cancer and is consistent with findings of cirrhosis, ascites, and portal hypertension. HISTORY OF PRESENTING ILLNESS: Mr. Resendiz is a 57-year-old noncompliant alcoholic with liver cirrhosis, portal hypertension, esophageal varices, who presented to the emergency room with multiple falls. He drinks heavily. He was admitted for further evaluation. He was found to have multiple electrolyte abnormalities consistent with chronic alcohol use including thrombocytopenia, acute on chronic kidney disease. Please see admission history and physical for further details. HOSPITAL COURSE: The patient was monitored. He has on and off waxing and waning somnolence. GI was consulted with regard to his cirrhosis and ascites. Dr. De La Cruz saw the patient. His recommendations were mainly to manage medically. Alcohol abstinence was strongly advised. The patient was restarted on his Lasix and Aldactone. His electrolyte imbalances improved. Multiple imaging studies were done and they were all unremarkable. Klonopin was discontinued due to somnolence. As of this morning, the patient is back to his baseline and is walking in the hallways. He is hemodynamically stable. He is back on his home medications. Ammonia levels were checked and were normal. There is no further reason to keep him in the hospital as he is clinically stable. DISCHARGE PLAN: Discussed with his and all questions were answered. I have requested them to get off the Klonopin. They will discuss this further with the primary care physician. The patient was seen and examined prior to discharge. Please see hospitalist's progress note from today's date for further details including [id number] interaction. Total time spent in the discharge of this patient 35 minutes. Job ID: [id number]
== END 2018-03-13 17:22 | disposition home or self-care (01) | DRG 682 ==
LOC: ERS 17:08 → OBSVTOIN 21:41 → 2SW 21:41 → T4-B 03-10 18:46
PROVIDERS: ADMIT Internal Medicine; ATTEND Internal Medicine
DX: N17.9 Acute kidney failure, unspecified (principal); I81 Portal vein thrombosis; F10.239 Alcohol dependence with withdrawal, unspecified; R18.8 Other ascites; I85.00 Esophageal varices without bleeding; E44.0 Moderate protein-calorie malnutrition; N18.3 Chronic kidney disease, stage 3 (moderate); E83.42 Hypomagnesemia; D69.6 Thrombocytopenia, unspecified; N40.0 Benign prostatic hyperplasia without lower urinary tract symptoms; K74.60 Unspecified cirrhosis of liver; I12.9 Hypertensive chronic kidney disease with stage 1 through stage 4 chronic kidney disease, or unspecified chronic kidney disease; W19.XXXA Unspecified fall, initial encounter; F10.10 Alcohol abuse, uncomplicated; M25.559 Pain in unspecified hip; B19.20 Unspecified viral hepatitis C without hepatic coma; G89.4 Chronic pain syndrome; D53.9 Nutritional anemia, unspecified; Z68.28 Body mass index [BMI] 28.0-28.9, adult
CPT/HCPCS: 36415; 36416; 70450; 72100; 72125; 72170; 74183; 76700; 80048; 80053; 80076; 82105; 82140; 82607; 82746; 83540; 83550; 83690; 83735; 85025; 85060; 85610; 85730; 93005; 96361; 96374; A9579; J2060; J2270; J3475; J7050

== ENCOUNTER 2018-03-13 20:29 | Emergency (ER) | payer OTHER ==
[2018-03-13 21:23] LABS: INR-International Normal Ratio 2.5; PTT 42.6 SEC (22.9-36.1); Prothrombin Time 26.6 SEC (12.0-14.7)
[2018-03-13 21:32] LABS: Hemoglobin 9.8 g/dL (14.0-18.0); Mean Corpuscular HGB CONC 32.3 g/dL (32.0-36.0); Mean Corpuscular Hemoglobin 40.1 pg (27.0-31.0); Mean Platelet Volume 9.5 fL (7.4-10.4); Platelet Count 66 thou/uL (130-400); RBC Distribution Width 15.6 % (11.5-14.5); Red Blood Cell (RBC) Count 2.44 mill/uL (4.70-6.10); White Blood Cell (WBC) Count 7.1 thou/uL (4.8-10.8)
[2018-03-13 21:36] LABS: ALT (SGPT) 23 U/L (8-55); AST (SGOT) 60 U/L (5-34); Albumin 2.2 g/dL (3.5-5.0); Alkaline Phosphatase 94 U/L (40-150); Anion Gap 15 mmol/L (10-20); BUN (Urea Nitrogen) 17 mg/dL (8.4-25.7); Bilirubin, Total 8.3 mg/dL (0.2-1.2); CK (CPK) 156 U/L (30-200); Calc. Creatinine Clearance 0 mL/min (70-130); Calcium 8.5 mg/dL (7.8-10.44); Carbon Dioxide 19 mmol/L (22-29); Chloride 102 mmol/L (98-107); Estimated GFR-MDRD 43; Globulin 4.5 g/dL (2.4-3.5); Glucose 87 mg/dL (70-105); Potassium 4.5 mmol/L (3.5-5.1); Protein, Total 6.7 g/dL (6.0-8.3); Sodium 131 mmol/L (136-145)
--- NOTE | 2018-03-13 21:49 | CT ---
NONCONTRAST CT HEAD: 03/13/18 HISTORY: Malaise. Patient fell twice. COMPARISON: 03/10/18. FINDINGS: There is no evidence of a hemorrhage, acute infarction, mass effect or midline shift. Cerebral and ce rebellar volume loss is again present. The ventricular system is normal in size, shape and position f or the degree of sulcal atrophy. The calvarial structures appear intact. The visualized paranasal sin uses and mastoid air cells are clear. IMPRESSION: 1. No acute intracranial abnormalities demonstrated. 2. Cerebral and cerebellar volume loss. POS: [facility]
[2018-03-13 21:50] LABS: Bilirubin Small (Negative); Blood, Urine Negative (Negative); Clarity CLEAR (Clear); Glucose, Urine (Dipstick) Negative (Negative); Leukocyte Moderate (Negative); Nitrite Negative (Negative); Protein, Urine (Dipstick) Negative (Neg-Trace); Specific Gravity, Urine 1.012 (1.002-1.036); pH, Urine 5.5 (5.0-9.0)
[2018-03-13 21:50] LABS: Anisocytosis SLIGHT = 6-15 cells (100X) (0-5/hpf); Band 14 % (5-11); Eosinophils 1 % (0-10); Lymphocytes 18 % (21-51); MDiff Complete? YES; Monocytes 5 % (0-10); Neutrophil 61 % (42-75); Platelet Morphology Comment Appears Decreased
[2018-03-13 21:53] LABS: Bacteria/HPF None Seen HPF (None Seen); Hyaline Casts/LPF 4-6 HYALINE CAST LPF (0-3 Hyaline); Pathc Cast-AUWi Flag 0.87 (0-2.49); RBC/HPF 0-3 HPF (0-3); Squamous Epithelial 0-3 HPF (0-3)
== END 2018-03-13 23:50 | disposition home or self-care (01) ==
LOC: ERS 20:29
DX: K70.30 Alcoholic cirrhosis of liver without ascites (principal); F41.9 Anxiety disorder, unspecified; F32.9 Major depressive disorder, single episode, unspecified; I10 Essential (primary) hypertension; Z79.899 Other long term (current) drug therapy; Z87.891 Personal history of nicotine dependence; Z79.01 Long term (current) use of anticoagulants; W19.XXXA Unspecified fall, initial encounter
CPT/HCPCS: 36415; 70450; 80307; 81003; 81015; 82140; 82550; 84484; 85025; 85610; 85730; 93005

== ENCOUNTER 2018-03-16 16:02 | Inpatient (IN) | payer OTHER ==
[2018-03-16 16:54] LABS: #Basophils 0.1 thou/uL (0.0-0.2); #Eosinphils 0.1 thou/uL (0.0-0.7); #Lymphocytes 1.6 thou/uL (1.20-3.40); #Monocytes 1.2 thou/uL (0.11-0.59); #Neutrophils 5.6 thou/uL (1.40-6.50); %Basophils 1.1 % (0.0-1.0); %Eosinophils 1.2 % (0.0-10.0); %Lymphocytes 18.3 % (21.0-51.0); %Monocytes 14.1 % (0.0-10.0); %Neutrophils 65.3 % (42.0-75.0); Hemoglobin 9.8 g/dL (14.0-18.0); Mean Corpuscular HGB CONC 31.6 g/dL (32.0-36.0); Mean Corpuscular Hemoglobin 38.9 pg (27.0-31.0); Mean Platelet Volume 8.3 fL (7.4-10.4); Platelet Count 95 thou/uL (130-400); RBC Distribution Width 15.5 % (11.5-14.5); Red Blood Cell (RBC) Count 2.53 mill/uL (4.70-6.10); White Blood Cell (WBC) Count 8.6 thou/uL (4.8-10.8)
[2018-03-16 17:08] LABS: ALT (SGPT) 38 U/L (8-55); AST (SGOT) 101 U/L (5-34); Albumin 2.2 g/dL (3.5-5.0); Alkaline Phosphatase 88 U/L (40-150); Anion Gap 12 mmol/L (10-20); BUN (Urea Nitrogen) 28 mg/dL (8.4-25.7); Bilirubin, Total 10.4 mg/dL (0.2-1.2); Calc. Creatinine Clearance 0 mL/min (70-130); Calcium 8.6 mg/dL (7.8-10.44); Carbon Dioxide 22 mmol/L (22-29); Chloride 99 mmol/L (98-107); Estimated GFR-MDRD 18; Globulin 4.5 g/dL (2.4-3.5); Glucose 95 mg/dL (70-105); Lipase 56 U/L (8-78); Potassium 4.6 mmol/L (3.5-5.1); Protein, Total 6.7 g/dL (6.0-8.3); Sodium 128 mmol/L (136-145)
[2018-03-16] MEDS ORDERED: Morphine 2 MG/ML SYRINGE ONE (18:40)
[2018-03-16 19:42] LABS: Bilirubin Large (Negative); Blood, Urine Negative (Negative); Clarity CLOUDY (Clear); Glucose, Urine (Dipstick) Negative (Negative); Leukocyte Trace (Negative); Nitrite Positive (Negative); Protein, Urine (Dipstick) Negative (Neg-Trace); Specific Gravity, Urine 1.014 (1.002-1.036); pH, Urine 5.5 (5.0-9.0)
[2018-03-16 19:43] LABS: Bacteria/HPF None Seen HPF (None Seen); Squamous Epithelial 0-3 HPF (0-3); WBC/HPF 0-3 HPF (0-3)
[2018-03-16 19:47] LABS: Hyaline Casts/LPF 0-3 HYALINE CAST LPF (0-3 Hyaline); Manual Microscopic Reviewed? No Path Casts Seen; Pathc Cast-AUWi Flag 4.36 (0-2.49)
[2018-03-16] MEDS ORDERED: Ondansetron PF 4 MG/2 ML Vial IVP PRN (19:50)
[2018-03-16] MEDS ORDERED: Acetaminophen 325 MG TAB PO PRN (19:50)
[2018-03-16] MEDS ORDERED: Ondansetron ODT 8 MG TAB PO PRN (19:55)
[2018-03-16] MEDS ORDERED: Ondansetron ODT 4 MG TAB PO PRN (19:59)
--- NOTE | 2018-03-16 21:42 | HP ---
PRIMARY CARE DOCTOR: Dr. Patricia Whitney. CODE STATUS: Full code. TIME OF EVALUATION: 07:40 p.m. CHIEF COMPLAINT: Chief complaint for this patient was abdominal pain. HISTORY OF PRESENT ILLNESS: A 57-year-old male patient with past medical history of liver cirrhosis, came to the hospital after having abdominal pain that was 10/10. No clear triggers, no alleviating factors. The patient has history of cirrhosis. The patient has increased abdominal size associated with the pain. The patient is followed by Dr. De La Cruz, who is out of town. Dr. Pelayo will be seeing the patient in the morning, has recommended for the patient to have a tap done for diagnosis and therapeutic purposes. No antibiotics to be given before tap. REVIEW OF SYSTEMS: CONSTITUTIONAL: No fever or chills. The patient reported generalized weakness. RESPIRATORY: No cough, sputum production, or shortness of breath. CARDIOVASCULAR: No chest pain or palpitations. GASTROINTESTINAL: No nausea. No vomiting or diarrhea. The patient has severe abdominal pain. There is diffuse abdominal distention. CONTROLS PROJECT ENGINEER: No dizziness, headache, or feeling lightheaded. GENITOURINARY: No burning on urination. EXTREMITIES: No leg swelling. All other systems were reviewed and negative except for the findings mentioned above. PAST MEDICAL HISTORY: Positive for hepatitis C, cirrhosis of the liver, hypertension, and gallstones. PAST SURGICAL HISTORY: Neck surgery and right hand surgery. PSYCH HISTORY: Anxiety and depression. SOCIAL HISTORY: Long-term drinker, 10 drinks per day. Former drug user, abuse heroin in the past. Former cigarette smoker. ALLERGIES: NO KNOWN DRUG ALLERGIES REPORTED. MEDICATIONS: 1. Magnesium oxide. 2. Tamsulosin. 3. Furosemide. 4. Spironolactone. 5. Folic acid. 6. Thiamine. 7. Xifaxan. 8. Propranolol. 9. Lexapro. 10. Klonopin. PHYSICAL EXAMINATION: VITAL SIGNS: On presentation, blood pressure 98/64, heart rate 90, respiratory rate was 20, and temperature 98.1. Pain 10/10. Oxygen saturation was 93 on room air. Blood pressure improved to 105/63. GENERAL APPEARANCE: The patient is alert, oriented, not in acute distress. HEENT: Eyes, normal conjunctivae. Moist oral mucosa. Anicteric. No JVD. RESPIRATORY: Bilateral air entry. No rales. No wheezes. Symmetric expansion. CARDIOVASCULAR: Normal rate, regular rhythm. No murmurs. No gallop. ABDOMEN: Distended, soft, and nontender. MUSCULOSKELETAL: Baseline range of motion and strength. No tenderness. SKIN: Warm, intact. No pallor. No rash. No redness. Peripheral pulses are present. Capillary refill seems to be intact. NEURO: No evidence of any new focal weakness. Baseline speech. Cranial nerves seem to be intact. PSYCH: The patient is in good mood. No anxiety. Optimal judgment. EXTREMITIES: Bilateral lower extremities 4+. Bilateral leg edema. LABORATORY DATA: Labs were reviewed. The patient has white count 8.6, hemoglobin 9.8, MCV is 123, and platelet count 95. Chemistry; sodium 128, potassium 4.6, chloride 99, carbon dioxide 22, anion gap 12, BUN 28, creatinine 3.49, in previous admissions as per record it was 1.66. GFR is 18, glucose 95, calcium 8.6, and total bilirubin 10.4. Urine nitrite positive, bilirubin is large in urine. White count was normal. ASSESSMENT AND PLAN: The patient will be placed in the hospital with following medical problems: 1. Decompensated cirrhosis of the liver with increased ascites. The patient has abdominal pain as concern for spontaneous bacterial peritonitis, the patient is at this point. Dr. Pelayo has agreed to see the patient as per ER report. Would like to tap tomorrow and then await for the tap before giving antibiotics. 2. Reconcile home medications. We will adjust treatment as needed. 3. Chronic macrocytic anemia. The patient will need followup as outpatient, that is not in acute. No bleeding. Seems to be stable. 4. Hyponatremia, sodium 128, likely due to advanced liver disease: The patient may be hemodiluted due to fluid overload. Will need diureses and treatment for the cirrhosis; however, the patient has increased BUN and creatinine and may need virtual assistant from Nephro. 5. Acute on chronic kidney disease. The patient can be hepatorenal, creatinine 3.49. We will reconcile home medications. May need adjustment and possible nephrology consultation to see if kidney function improve. This worsen prognosis for this patient. 6. Severe abdominal pain, needing opioid medications, IV for optimal control. 7. Risk assessment. The patient is at high risk for complication from treatment, we will monitor closely. 8. Deep venous thrombosis prophylaxis. 9. We will do coagulation studies for now. SCDs were recommended. Job ID: [id number]
[2018-03-17] MEDS: Magnesium Oxide 400 MG TAB PO SCH ×2 (00:26→20:56)
[2018-03-17] MEDS: Rifaximin 550 MG TAB PO SCH ×3 (00:26→20:56)
[2018-03-17] MEDS: Propranolol 10 MG TAB PO SCH ×3 (00:26→14:29)
[2018-03-17 06:29] LABS: #Basophils 0.1 thou/uL (0.0-0.2); #Eosinphils 0.2 thou/uL (0.0-0.7); #Lymphocytes 2.3 thou/uL (1.20-3.40); #Monocytes 1.2 thou/uL (0.11-0.59); #Neutrophils 5.3 thou/uL (1.40-6.50); %Basophils 1.3 % (0.0-1.0); %Lymphocytes 25.1 % (21.0-51.0); %Monocytes 12.8 % (0.0-10.0); %Neutrophils 58.7 % (42.0-75.0); Anion Gap 14 mmol/L (10-20); BUN (Urea Nitrogen) 30 mg/dL (8.4-25.7); Calc. Creatinine Clearance 27 mL/min (70-130); Calcium 8.4 mg/dL (7.8-10.44); Carbon Dioxide 20 mmol/L (22-29); Chloride 101 mmol/L (98-107); Estimated GFR-MDRD 18; Hemoglobin 9.6 g/dL (14.0-18.0); MDiff Complete? YES; Macrocytosis MODERATE=16-30 cells (100X) (0-5/hpf); Mean Corpuscular HGB CONC 31.7 g/dL (32.0-36.0); Mean Corpuscular Hemoglobin 39.2 pg (27.0-31.0); Mean Platelet Volume 9.1 fL (7.4-10.4); Platelet Count 87 thou/uL (130-400); Platelet Morphology Comment Appears Decreased; Potassium 4.3 mmol/L (3.5-5.1); RBC Distribution Width 15.5 % (11.5-14.5); Red Blood Cell (RBC) Count 2.46 mill/uL (4.70-6.10); Sodium 131 mmol/L (136-145); Target Cells SLIGHT = 2-5 cells (100X) (0-1/hpf); White Blood Cell (WBC) Count 9.1 thou/uL (4.8-10.8)
[2018-03-17 06:33] LABS: Glucose 57 mg/dL (70-105)
[2018-03-17] MEDS: Tamsulosin HCl 0.4 MG CAP PO SCH (07:43)
[2018-03-17] MEDS: Folic Acid 1 MG TAB PO SCH (07:44)
[2018-03-17] MEDS: Escitalopram Oxalate 10 mg Tablet PO SCH (07:44)
[2018-03-17] MEDS ORDERED: Dextrose 50% Abboject 50 ML SYRINGE SLOW IVP PRN (07:51)
[2018-03-17] MEDS ORDERED: Dextrose 5% in Water 1,000 ML IV PRN (07:51)
[2018-03-17] MEDS ORDERED: Albumin 25% 25 GM/100 ML BOT IVPB ONE (07:53)
[2018-03-17] MEDS ORDERED: Sodium Chloride 0.9% 500 ML IV SCH (08:00)
[2018-03-17] MEDS ORDERED: Dextrose 5 % And 0.9 % NaCl 1,000 ML IV SCH (08:00)
[2018-03-17] MEDS: Albumin 25% 25 GM/100 ML BOT IVPB SCH ×4 (08:44→23:46)
[2018-03-17] MEDS ORDERED: Spironolactone 25 MG TAB PO SCH (09:00)
[2018-03-17] MEDS ORDERED: Furosemide 20 MG TAB PO SCH (09:00)
--- NOTE | 2018-03-17 15:23 | ULT ---
SONOGRAPHIC GUIDED PARACENTESIS: HISTORY: Liver failure. Ascites. FINDINGS: After explaining the procedure and answering all questions, a sonographic survey shows a large amount of free fluid throughout the abdomen. Sterile technique, buffered local anesthesia, sonographic john dance, and a right lateral approach were used to carefully advance a 19 gauge trocar needle into the free fluid. The catheter was left to drain a total volume of 4.1 L of dark, clear, yellow liquid. A portion was sent to pathology for evaluation. The catheter was removed. Post procedure imaging jorge ws no evidence of complication. The patient tolerated the procedure well and was returned in improve d condition. IMPRESSION: Technically successful sonographic-guided paracentesis. POS: [facility]
--- NOTE | 2018-03-17 15:30 | PDOC.PN ---
- Subjective Encounter Start Date: 03/17/18 Encounter Start Time: 09:00 Subjective: pt up in bed no complains - Objective Resuscitation Status - Order Detail: 03/16/18 19:50 Resuscitation Status Routine Resuscitation Status: FULL: Full Resuscitation Vital Signs & Weight: Vital Signs (12 hours) Temp Pulse Resp BP Pulse Ox 03/17/18 07:18 98.3 F 80 18 110/78 93 L 03/17/18 04:44 97.7 F 81 16 98/64 92 L Weight Weight 176 lb I&O: 03/16/18 03/17/18 03/18/18 06:59 06:59 06:59 Intake Total 240 Balance 240 Result Diagrams: 03/17/18 05:25 03/17/18 05:25 Additional Labs: Accuchecks 03/17/18 08:56 POC Glucose 86 Phys Exam - Physical Examination Neck: no nodes, no JVD, supple, full ROM Respiratory: no wheezing, no rales, no rhonchi, wheezing present, clear to auscultation bilateral Cardiovascular: RRR, no significant murmur, no rub, gallop, irregular Gastrointestinal: soft, positive bowel sounds mild distention Dx/Plan (1) Decompensation of cirrhosis of liver Code(s): K72.90 - HEPATIC FAILURE, UNSPECIFIED WITHOUT COMA Status: Acute (2) Abdominal pain Code(s): R10.9 - UNSPECIFIED ABDOMINAL PAIN Status: Acute (3) MAHNAZ (acute kidney injury) Code(s): N17.9 - ACUTE KIDNEY FAILURE, UNSPECIFIED Status: Acute (4) Portal vein thrombosis Code(s): I81 - PORTAL VEIN THROMBOSIS Status: Acute Comment: GI consult pending - Plan will give pt fluids and albumin, nephrology consulted -: pt going for paracentesis -: gi consulted -: pt states last drink was 03/04 * . Review of Systems - Review of Systems Respiratory: negative: Cough, Dry, Shortness of Breath, Hemoptysis, SOB with Excertion, Pleuritic Pain, Sputum, Wheezing Cardiovascular: negative: chest pain, palpitations, orthopnea, paroxysmal nocturnal dyspnea, edema, light headedness, other Gastrointestinal: Abdominal Pain Genitourinary: negative: Dysuria, Frequency, Incontinence, Hematuria, Retention , Other - Medications/Allergies Allergies/Adverse Reactions: Allergies Allergy/AdvReac Type Severity Reaction Status Date / Time No Known Allergies Allergy Verified 03/04/18 21:48 Medications: Current Medications Albumin Human (Albumin 25%) 25 gm IVPB TID [facility] Stop: 03/18/18 09:01 Last Admin: 03/17/18 14:29 Dose: 25 gm Dextrose/Water (Dextrose 50%) 25 gm SLOW IVP PRN PRN PRN Reason: Hypoglycemia Escitalopram Oxalate (Lexapro) 10 mg PO DAILY [facility] Last Admin: 03/17/18 07:44 Dose: 10 mg Folic Acid (Folvite) 1 mg PO DAILY [facility] Last Admin: 03/17/18 07:44 Dose: 1 mg Glucagon (Glucagon) 1 mg IM PRN PRN PRN Reason: Hypoglycemia Dextrose/Water (D5w) 1,000 mls @ 0 mls/hr IV .Q0M PRN PRN Reason: Hypoglycemia Dextrose/Sodium Chloride (D5 0.9% Ns) 1,000 mls @ 50 mls/hr IV .Q20H [facility] Last Admin: 03/17/18 08:45 Dose: 1,000 mls Lactulose (Lactulose) 20 gm PO DAILY [facility] Last Admin: 03/17/18 07:43 Dose: 20 gm Magnesium Oxide (Magnesium Oxide) 400 mg PO HS [facility] Last Admin: 03/17/18 00:26 Dose: Not Given Miscellaneous (Ase Protocol) 1 each FS ASDIR [facility] Ondansetron HCl (Zofran) 4 mg IVP Q6H PRN PRN Reason: Nausea/Vomiting Ondansetron HCl (Zofran Odt) 8 mg PO Q8HR PRN PRN Reason: Nausea Ondansetron HCl (Zofran Odt) 4 mg PO Q6H PRN PRN Reason: Nausea/Vomiting Propranolol HCl (Inderal) 5 mg PO TID [facility] Last Admin: 03/17/18 14:29 Dose: 5 mg Rifaximin (Xifaxan) 550 mg PO BID [facility] Last Admin: 03/17/18 07:44 Dose: 550 mg Sodium Chloride (Flush - Normal Saline) 10 ml IVF Q12HR [facility] Last Admin: 03/17/18 08:52 Dose: Not Given Sodium Chloride (Flush - Normal Saline) 10 ml IVF PRN PRN PRN Reason: Saline Flush Tamsulosin HCl (Flomax) 0.4 mg PO DAILY [facility] Last Admin: 03/17/18 07:43 Dose: 0.4 mg Thiamine HCl (Thiamine) 100 mg PO DAILY [facility] Last Admin: 03/17/18 07:44 Dose: 100 mg
[2018-03-17 16:29] LABS: BF Color Yellow; Body Fluid Source Ascites Body Fluid; Clarity Clear (Clear); Tube # EDTA
[2018-03-17 16:30] LABS: BF RBC Count - Manual 79 /cumm; BF WBC/Nonhematics Ct. - Manua 103 /cumm
[2018-03-17 16:57] LABS: BF Segmented Neutrophils 4 %; Cell Count Non Hematic 72 %; Lymphocytes 24 %
[2018-03-17] MEDS: Dextrose 5 % And 0.9 % NaCl 1,000 ML IV SCH ×2 (17:10→20:56)
--- NOTE | 2018-03-18 00:08 | CON ---
DATE OF CONSULTATION: 03/17/2018 TYPE OF CONSULTATION: Nephrology. CONSULTING PHYSICIAN: Gómez Trinidad MD REASON FOR CONSULTATION: Acute kidney injury. REASON FOR ADMISSION: Abdominal pain. HISTORY OF PRESENT ILLNESS: A 57-year-old male with history of hepatitis C, cirrhosis, and hypertension, came to the hospital with abdominal pain and he has been elevated for cirrhosis and worsening hepatorenal syndrome, was found to have elevated creatinine. The patient was recently discharged from the hospital. On discharge on 03/13/2018, his creatinine was 1.6 and on admission, it was 3.4. The patient is feeling tight abdomen and also feels like he is bloated. Family was at the bedside. PAST MEDICAL HISTORY: Positive for hepatitis C, cirrhosis, and gallstones. PAST SURGICAL HISTORY: Neck surgery and right hand surgery. HOME MEDICATIONS: 1. Magnesium oxide. 2. Tamsulosin. 3. Lasix. 4. Spironolactone. 5. Folic acid. 6. Thiamine. 7. Xifaxan. 8. Propranolol. 9. Lexapro. 10. Klonopin. ALLERGIES: NO KNOWN DRUG ALLERGIES. SOCIAL HISTORY: He is a long-time drinker. Former drug user and heroin user. FAMILY HISTORY: No history of any kidney disease. REVIEW OF SYSTEMS: CONSTITUTIONAL: Negative for weight loss or gain, ability to conduct usual activities. SKIN: Negative for rash, itching. EYES: Negative for double vision, pain. ENT/MOUTH: Negative for nose bleeding, neck stiffness, pain, tenderness. CARDIOVASCULAR: Negative for palpitations, dyspnea on exertion, orthopnea. RESPIRATORY: Negative for shortness of breath, wheezing, cough, hemoptysis, fever or night sweats. GASTROINTESTINAL: . GENITOURINARY: Negative for urgency, frequency, dysuria, nocturia. MUSCULOSKELETAL: Negative for pain, swelling. NEUROLOGIC/PSYCHIATRIC: Negative for anxiety, depression. ALLERGY/IMMUNOLOGIC: Negative for skin rash, bleeding tendency. PHYSICAL EXAMINATION: GENERAL: Well-built male, in no apparent distress. VITAL SIGNS: Temperature 98.3, pulse 80, respiratory rate 18, and blood pressure 110/78. HEENT: Atraumatic and normocephalic. Oral mucosa is moist. NECK: Supple. CARDIOVASCULAR: S1 and S2 heard. Rate and rhythm regular. RESPIRATORY: Clear. GASTROINTESTINAL: Abdomen is distended. Tense abdomen, ascites present. MUSCULOSKELETAL: 1 to 2+ edema. DERMATOLOGIC: No skin rash. NEUROLOGICAL: Alert and awake. PSYCHIATRIC: Normal mood and affect. LABORATORY DATA: Potassium is 4.3, BUN is 30, creatinine is 3.4. ASSESSMENT AND PLAN: 1. Acute kidney injury, most likely hepatorenal. Agree with holding diuretics and albumin in future. 2. Hyponatremia, better. 3. Metabolic acidosis. 4. Ascites with anasarca. 5. Anemia, most likely from chronic disease. 6. Hypoalbuminemia. 7. History of cirrhosis. Prognosis guarded. Agree with holding diuretics and try albumin, and recommend ascitic tap or paracentesis as tolerated. Thank you for the consult. Job ID: [id number]
--- NOTE | 2018-03-18 05:22 | CON ---
DATE OF CONSULTATION: REASON FOR CONSULT: Ascites. HISTORY OF PRESENT ILLNESS: Mr. Resendiz is a 57-year-old with a cirrhosis related to prior alcohol abuse. He has been admitted to this hospital numerous times. He sees Dr. De La Cruz, I think he is his regular physician. Previously, he had issues with ascites, spontaneous bacterial peritonitis, and hepatic encephalopathy. He apparently was last in this hospital in July, was discharged with a diagnosis of hepatorenal syndrome, hypertension, chronic hepatitis C, decompensated cirrhosis, SBP, and ongoing alcohol abuse. The patient states he is dealing with a fall recently and possibly was hospitalized to [facility] for a time, but he is not clear on this date. Here, he was in the hospital from 03/05 through 03/[address] De La Cruz did see him at that time. Apparently, he had been diagnosed with portal vein thrombosis in one of his imaging studies, but it was felt that his anticoagulation was contraindicated. He did have an MRI in that admission that showed no liver masses. The ultrasound on 03/10 is what apparently showed the portal vein thrombosis. On when he was discharged, his creatinine was 1.66. When he returned on the , his creatinine was 3.49, that was last night. At that time, he came in complaining of abdominal pain. He had a white count of 8.6, hemoglobin of 9.8, which is his baseline and platelet count of 95. His bilirubin was 10.4, AST and ALT 101 and 38, lipase was 56. His recent alpha fetoprotein was 17.3 on 03/12. Alcohol level was less than 10 on 03/13. Apparently, he still does drink on and off, but has not since about March 04 per the patient's significant other. He had a paracentesis done today, 03/17/2018, per Dr. Pelayo. The white count on that fluid was 103 with no significant segs. Cultures are pending. Presently, the patient is fully confused, he knows where he is and complains of some low back pain. PAST MEDICAL HISTORY: 1. Hepatitis C with positive viral load of 2017. 2. Cirrhosis decompensated from hepatitis C and alcohol. 3. New portal vein thrombosis with slight elevation of alpha fetoprotein, but no masses or tumors seen on the imaging study. 4. Ascites. 5. Issues with portal hypertension and SBP in the past. 6. Anxiety and depression. PAST SURGICAL HISTORY: Neck surgery, right hand surgery. SOCIAL HISTORY: Stopped drinking alcohol about 10th of this month according to his significant other. He does not smoke now. ALLERGIES: NONE KNOWN. MEDICATIONS: 1. Magnesium oxide. 2. Tamsulosin. 3. Furosemide. 4. Spironolactone. 5. Folic acid. 6. Thiamine. 7. Xifaxan. 8. Propranolol. 9. Lexapro. 10. Klonopin. Present medications: 1. Albumin 25 g IV q.8. 2. Normal saline at 50 mL an hour. 3. Lexapro 10 mg daily. 4. Folic acid. 5. Glucagon. 6. Lactulose 20 daily, antibiotics. 7. Magnesium. 8. Zofran. 9. Propranolol. 10. Rifaximin. 11. Tamsulosin. 12. Thiamine. REVIEW OF SYSTEMS: The patient denies any cough, shortness of breath, dysuria, frequency, urgency, melena, hematochezia, or hematemesis. Previous EGD in 2017, grade 2 varices, portal hypertension, but no bleeding. PHYSICAL EXAMINATION: GENERAL: The patient is resting in bed. VITAL SIGNS: Temperature is 98, pulse 80, blood pressure 110/78, respirations 18. LUNGS: Clear. HEART: Regular rate and rhythm without rubs or murmurs. ABDOMEN: Protuberant. No tenderness. Shifting dullness is present. Fluid wave is present. EXTREMITIES: Revealed no edema. LABORATORY DATA: Laboratory studies as per HPI. Cultures pending. ASSESSMENT: 1. Abdominal pain and ascites, tap presumptively negative for spontaneous bacterial peritonitis. We empirically started him earlier today on Levaquin. We will continue until cultures are back. 2. Acute renal failure, likely related to over-diuresis. The patient denies any NSAID use issues or possibilities. We would hold all diuretics. Start increased IV fluids to 100 mL an hour. Start albumin IV q.8 and if he does not have improvement in creatinine by tomorrow, I will get a Renal consult. 3. We would hold his beta nicolle presently because of hypotension. 4. With his encephalopathy, we would agree with low-dose lactulose and Xifaxan. 5. With his history of alcoholism, we would add multivitamin to his thiamine and folate. We will follow with you. Job ID: [id number]
[2018-03-18] MEDS: Dextrose 5 % And 0.9 % NaCl 1,000 ML IV SCH ×3 (05:51→21:11)
[2018-03-18] MEDS: Rifaximin 550 MG TAB PO SCH ×2 (08:13→20:57)
[2018-03-18] MEDS: Escitalopram Oxalate 10 mg Tablet PO SCH (08:13)
[2018-03-18] MEDS: Multivit, Therapeutic 1 TAB PO SCH (08:13)
[2018-03-18] MEDS: Tamsulosin HCl 0.4 MG CAP PO SCH (08:13)
[2018-03-18] MEDS: Folic Acid 1 MG TAB PO SCH (08:13)
[2018-03-18] MEDS: Albumin 25% 25 GM/100 ML BOT IVPB SCH ×3 (08:14→20:57)
[2018-03-18 09:35] LABS: Anion Gap 13 mmol/L (10-20); BUN (Urea Nitrogen) 27 mg/dL (8.4-25.7); Calc. Creatinine Clearance 32 mL/min (70-130); Carbon Dioxide 18 mmol/L (22-29); Chloride 105 mmol/L (98-107); Estimated GFR-MDRD 23; Glucose 113 mg/dL (70-105); Potassium 4.4 mmol/L (3.5-5.1); Sodium 132 mmol/L (136-145)
[2018-03-18] MEDS ORDERED: clonazePAM 0.5 MG TAB PO PRN (12:11)
[2018-03-18] MEDS: traMADol HCl 50 MG TAB PO PRN (13:12)
--- NOTE | 2018-03-18 15:11 | PDOC.PN ---
- Subjective Encounter Start Date: 03/18/18 Encounter Start Time: 10:30 Subjective: pt up in bed complains of pain all over body - Objective Resuscitation Status - Order Detail: 03/16/18 19:50 Resuscitation Status Routine Resuscitation Status: FULL: Full Resuscitation Vital Signs & Weight: Vital Signs (12 hours) Temp Pulse Resp BP BP BP Pulse Ox 03/18/18 12:00 116/69 03/18/18 11:10 97.8 F 86 12 116/69 95 03/18/18 08:00 120/74 03/18/18 04:00 98.4 F 85 20 103/65 92 L Weight Weight 176 lb I&O: 03/17/18 03/18/18 03/19/18 06:59 06:59 06:59 Intake Total 1773 Balance 1773 Result Diagrams: 03/17/18 05:25 03/18/18 08:37 Additional Labs: Accuchecks 03/18/18 03/18/18 03/17/18 11:13 04:48 19:47 POC Glucose 116 H 159 H 146 H Phys Exam - Physical Examination Neck: no nodes, no JVD, supple, full ROM Respiratory: no wheezing, no rales, no rhonchi, wheezing present, clear to auscultation bilateral Cardiovascular: RRR, no significant murmur, no rub, gallop, irregular Gastrointestinal: soft, positive bowel sounds Musculoskeletal: edema present Dx/Plan (1) Decompensation of cirrhosis of liver Code(s): K72.90 - HEPATIC FAILURE, UNSPECIFIED WITHOUT COMA Status: Acute (2) Abdominal pain Code(s): R10.9 - UNSPECIFIED ABDOMINAL PAIN Status: Acute (3) MAHNAZ (acute kidney injury) Code(s): N17.9 - ACUTE KIDNEY FAILURE, UNSPECIFIED Status: Acute (4) Portal vein thrombosis Code(s): I81 - PORTAL VEIN THROMBOSIS Status: Acute Comment: GI consult pending - Plan s/p paracentesis 4L of fluid -: pt's creatinine has improved -: he is requesting klonipin i have educated him that if he gets drowsy -: will start tapering it. I have only started him on bid instead of tid * . Review of Systems - Review of Systems Respiratory: negative: Cough, Dry, Shortness of Breath, Hemoptysis, SOB with Excertion, Pleuritic Pain, Sputum, Wheezing Cardiovascular: negative: chest pain, palpitations, orthopnea, paroxysmal nocturnal dyspnea, edema, light headedness, other Gastrointestinal: Abdominal Pain Genitourinary: negative: Dysuria, Frequency, Incontinence, Hematuria, Retention , Other - Medications/Allergies Allergies/Adverse Reactions: Allergies Allergy/AdvReac Type Severity Reaction Status Date / Time No Known Allergies Allergy Verified 03/04/18 21:48 Medications: Current Medications Albumin Human (Albumin 25%) 25 gm IVPB 0800,1600,2359 [facility] Stop: 03/18/18 16:01 Last Admin: 03/18/18 08:14 Dose: 25 gm Clonazepam (Klonopin) 0.5 mg PO BID PRN PRN Reason: Anxiety Dextrose/Water (Dextrose 50%) 25 gm SLOW IVP PRN PRN PRN Reason: Hypoglycemia Escitalopram Oxalate (Lexapro) 10 mg PO DAILY [facility] Last Admin: 03/18/18 08:13 Dose: 10 mg Folic Acid (Folvite) 1 mg PO DAILY [facility] Last Admin: 03/18/18 08:13 Dose: 1 mg Glucagon (Glucagon) 1 mg IM PRN PRN PRN Reason: Hypoglycemia Dextrose/Water (D5w) 1,000 mls @ 0 mls/hr IV .Q0M PRN PRN Reason: Hypoglycemia Levofloxacin 250 mg/ Device 50 mls @ 100 mls/hr IVPB Q24HR [facility] Last Admin: 03/17/18 17:23 Dose: 50 mls Dextrose/Sodium Chloride (D5 0.9% Ns) 1,000 mls @ 100 mls/hr IV .Q10H [facility] Last Admin: 03/18/18 05:51 Dose: 1,000 mls Lactulose (Lactulose) 20 gm PO DAILY [facility] Last Admin: 03/18/18 08:13 Dose: 20 gm Magnesium Oxide (Magnesium Oxide) 400 mg PO HS [facility] Last Admin: 03/17/18 20:56 Dose: 400 mg Miscellaneous (Ase Protocol) 1 each FS ASDIR [facility] Multivitamins (Theragran) 1 tab PO DAILY [facility] Last Admin: 03/18/18 08:13 Dose: 1 tab Ondansetron HCl (Zofran) 4 mg IVP Q6H PRN PRN Reason: Nausea/Vomiting Ondansetron HCl (Zofran Odt) 8 mg PO Q8HR PRN PRN Reason: Nausea Ondansetron HCl (Zofran Odt) 4 mg PO Q6H PRN PRN Reason: Nausea/Vomiting Rifaximin (Xifaxan) 550 mg PO BID [facility] Last Admin: 03/18/18 08:13 Dose: 550 mg Sodium Chloride (Flush - Normal Saline) 10 ml IVF Q12HR [facility] Last Admin: 03/18/18 08:14 Dose: Not Given Sodium Chloride (Flush - Normal Saline) 10 ml IVF PRN PRN PRN Reason: Saline Flush Tamsulosin HCl (Flomax) 0.4 mg PO DAILY [facility] Last Admin: 03/18/18 08:13 Dose: 0.4 mg Thiamine HCl (Thiamine) 100 mg PO DAILY [facility] Last Admin: 03/18/18 08:13 Dose: 100 mg Tramadol HCl (Ultram) 50 mg PO Q8H PRN PRN Reason: Moderate Pain (4-6) Last Admin: 03/18/18 13:12 Dose: 50 mg
--- NOTE | 2018-03-18 19:59 | PRG ---
DATE OF SERVICE: 03/18/2018 SUBJECTIVE: Patient was seen and examined at bedside and overnight events noted. Patient denies any shortness of breath or chest pain or palpitation. No history of nausea or vomiting or diarrhea or fever or chills or cramps. OBJECTIVE: GENERAL: This is a well-built male, in no acute distress. VITAL SIGNS: Temperature 98.3. Heart rate 85, respiratory rate 18. Blood pressure 117/66. HEENT: Atraumatic, normocephalic. Oral mucosa is moist NECK: Supple. CARDIOVASCULAR: S1, S2 heard. Rate and rhythm regular. RESPIRATORY: Clear to auscultation. GASTROINTESTINAL: Abdomen is soft. MUSCULOSKELETAL: No tenderness. No edema. DERMATOLOGIC: No skin rash. NEUROLOGIC: Alert and awake and oriented X3. No focal neurologic deficits. Moving all the extremities. PSYCHIATRIC: Mood and affect normal. LABORATORY DATA: Potassium is 4.4, BUN is 77, and creatinine is 2.9. ASSESSMENT AND PLAN: 1. Acute kidney injury on chronic kidney disease, most likely hepatorenal. Creatinine is getting better. 2. Hyponatremia. 3. Metabolic acidosis. 4. Ascites with anasarca. 5. Anemia. 6. Hypoalbuminemia. 7. History of cirrhosis. Labs are stable. Avoid nephrotoxins. We will follow. Job ID: [id number]
--- NOTE | 2018-03-18 20:48 | PRG ---
DATE OF SERVICE: 03/18/2018 SUBJECTIVE: Mr. Resendiz feels okay. His significant other is at the bedside. She states he has not drunk since the 10th. He went for about 9 months and did not drink and did very well and did follow up in the clinic at that time. She states he ate a lot of fruits and veggies at that time and did well presently. He was in the hospital recently, then was readmitted with acute renal failure. Tap yesterday showed no signs of SBP. He has been eating today. She notes that he has had issues with like he is falling at times, but denies any vertigo or nausea. OBJECTIVE: VITAL SIGNS: Temperature is 98, pulse 85, blood pressure 117/66. LUNGS: Clear. HEART: Regular rate and rhythm. ABDOMEN: Soft, slight fluid wave. No shifting dullness. NEUROLOGIC: There is no nystagmus. Reflexes are slightly hyperreflexic. EXTREMITIES: No edema. LABORATORY DATA: Sodium 133, potassium 4.4, BUN and creatinine are 23 and 2.9, this has improved from 3.49 on admission. Fluid on tap showed some gram-positive rods, although interestingly his fluid showed only 103 white blood cells, only 4% segs. This may be contaminant. RECOMMENDATIONS: 1. Continue antibiotic coverage. Await final identification of cultures. 2. Recheck ammonia. 3. I would stop the Klonopin in light of his hepatic encephalopathy. 4. Continue multivitamin, thiamine, and folate. Neurologic symptoms may be more indicative of acute encephalopathy. Job ID: [id number]
[2018-03-18] MEDS: Magnesium Oxide 400 MG TAB PO SCH (20:57)
[2018-03-19] MEDS: Albumin 25% 25 GM/100 ML BOT IVPB SCH ×3 (03:25→20:15)
[2018-03-19] MEDS: traMADol HCl 50 MG TAB PO PRN ×2 (03:29→18:49)
[2018-03-19 07:16] LABS: Anion Gap 14 mmol/L (10-20); BUN (Urea Nitrogen) 22 mg/dL (8.4-25.7); Calc. Creatinine Clearance 39 mL/min (70-130); Calcium 8.5 mg/dL (7.8-10.44); Carbon Dioxide 18 mmol/L (22-29); Chloride 108 mmol/L (98-107); Estimated GFR-MDRD 28; Glucose 104 mg/dL (70-105); Magnesium 1.9 mg/dL (1.6-2.6); Phosphorus 2.8 mg/dL (2.3-4.7); Potassium 3.8 mmol/L (3.5-5.1); Sodium 136 mmol/L (136-145)
[2018-03-19] MEDS: Dextrose 5 % And 0.9 % NaCl 1,000 ML IV SCH ×3 (07:39→22:14)
[2018-03-19] MEDS: Escitalopram Oxalate 10 mg Tablet PO SCH (07:40)
[2018-03-19] MEDS: Folic Acid 1 MG TAB PO SCH (07:40)
[2018-03-19] MEDS: Tamsulosin HCl 0.4 MG CAP PO SCH (07:40)
[2018-03-19] MEDS: Rifaximin 550 MG TAB PO SCH ×2 (07:40→20:15)
[2018-03-19] MEDS: Multivit, Therapeutic 1 TAB PO SCH (07:40)
--- NOTE | 2018-03-19 11:27 | PRG ---
DATE OF SERVICE: 03/19/2018 SUBJECTIVE: Patient was seen and examined at bedside and overnight events noted. Patient denies any shortness of breath or chest pain or palpitation. No history of nausea or vomiting or diarrhea or fever or chills or cramps. OBJECTIVE: GENERAL: This is a well-built male, in no apparent distress. VITAL SIGNS: Temperature 97.9, pulse HEENT: Atraumatic, normocephalic. Oral mucosa is moist NECK: Supple. CARDIOVASCULAR: S1, S2 heard. Rate and rhythm regular. RESPIRATORY: Clear to auscultation. GASTROINTESTINAL: Abdomen is soft. MUSCULOSKELETAL: No tenderness. No edema. DERMATOLOGIC: No skin rash. NEUROLOGIC: Alert and awake and oriented X3. No focal neurologic deficits. Moving all the extremities. PSYCHIATRIC: Mood and affect normal. LABORATORY DATA: Potassium 3.8, BUN 72, and creatinine 2.3. ASSESSMENT AND PLAN: 1. Acute kidney injury on chronic kidney disease, getting better. 2. Chronic kidney disease, stage 4. 3. Hepatorenal syndrome. 4. Ascites. 5. Anemia. 6. Hypoalbuminemia. 7. History of cirrhosis. 8. Creatinine is getting better. We will follow. Job ID: [id number]
--- NOTE | 2018-03-19 14:48 | PDOC.PN ---
- Subjective Encounter Start Date: 03/19/18 Encounter Start Time: 10:00 Subjective: pt up in bed appears drowsy - Objective Resuscitation Status - Order Detail: 03/16/18 19:50 Resuscitation Status Routine Resuscitation Status: FULL: Full Resuscitation Vital Signs & Weight: Vital Signs (12 hours) Temp Pulse Resp BP BP BP Pulse Ox 03/19/18 12:00 147/84 H 03/19/18 11:19 97.9 F 86 18 147/84 H 93 L 03/19/18 08:00 126/76 03/19/18 07:43 95 03/19/18 07:04 97.9 F 76 18 126/76 95 03/19/18 04:00 98.2 F 87 20 124/75 124/75 95 Weight Weight 176 lb I&O: 03/18/18 03/19/18 03/20/18 06:59 06:59 06:59 Intake Total 1773 3280 Balance 1773 3280 Result Diagrams: 03/17/18 05:25 03/19/18 06:35 Additional Labs: Accuchecks 03/19/18 03/19/18 03/18/18 11:20 04:05 19:22 POC Glucose 126 H 114 H 128 H 03/18/18 15:23 POC Glucose 127 H Phys Exam - Physical Examination Neck: no nodes, no JVD, supple, full ROM Respiratory: no wheezing, no rales, no rhonchi, wheezing present, clear to auscultation bilateral Cardiovascular: RRR, no significant murmur, no rub, gallop, irregular Gastrointestinal: soft, non-tender, no distention, positive bowel sounds Dx/Plan (1) Decompensation of cirrhosis of liver Code(s): K72.90 - HEPATIC FAILURE, UNSPECIFIED WITHOUT COMA Status: Acute (2) Abdominal pain Code(s): R10.9 - UNSPECIFIED ABDOMINAL PAIN Status: Acute (3) MAHNAZ (acute kidney injury) Code(s): N17.9 - ACUTE KIDNEY FAILURE, UNSPECIFIED Status: Acute (4) Portal vein thrombosis Code(s): I81 - PORTAL VEIN THROMBOSIS Status: Acute Comment: GI consult pending - Plan will discontinue klonopin -: pt's cx indicated gram positive judy -: pt on abx, mahnaz improving * . Review of Systems - Review of Systems Respiratory: negative: Cough, Dry, Shortness of Breath, Hemoptysis, SOB with Excertion, Pleuritic Pain, Sputum, Wheezing Cardiovascular: negative: chest pain, palpitations, orthopnea, paroxysmal nocturnal dyspnea, edema, light headedness, other Gastrointestinal: negative: Nausea, Vomiting, Abdominal Pain, Diarrhea, Constipation, Melena, Hematochezia, Other - Medications/Allergies Allergies/Adverse Reactions: Allergies Allergy/AdvReac Type Severity Reaction Status Date / Time No Known Allergies Allergy Verified 03/04/18 21:48 Medications: Current Medications Albumin Human (Albumin 25%) 25 gm IVPB Q8H [facility] Stop: 03/21/18 20:01 Last Admin: 03/19/18 11:23 Dose: 25 gm Dextrose/Water (Dextrose 50%) 25 gm SLOW IVP PRN PRN PRN Reason: Hypoglycemia Escitalopram Oxalate (Lexapro) 10 mg PO DAILY [facility] Last Admin: 03/19/18 07:40 Dose: 10 mg Folic Acid (Folvite) 1 mg PO DAILY [facility] Last Admin: 03/19/18 07:40 Dose: 1 mg Glucagon (Glucagon) 1 mg IM PRN PRN PRN Reason: Hypoglycemia Dextrose/Water (D5w) 1,000 mls @ 0 mls/hr IV .Q0M PRN PRN Reason: Hypoglycemia Levofloxacin 250 mg/ Device 50 mls @ 100 mls/hr IVPB Q24HR [facility] Last Admin: 03/18/18 17:55 Dose: 50 mls Dextrose/Sodium Chloride (D5 0.9% Ns) 1,000 mls @ 100 mls/hr IV .Q10H [facility] Last Admin: 03/19/18 07:39 Dose: 1,000 mls Lactulose (Lactulose) 20 gm PO DAILY [facility] Last Admin: 03/19/18 07:40 Dose: 20 gm Magnesium Oxide (Magnesium Oxide) 400 mg PO HS [facility] Last Admin: 03/18/18 20:57 Dose: 400 mg Melatonin (Melatonin) 3 mg PO HS PRN PRN Reason: Insomnia Miscellaneous (Ase Protocol) 1 each FS ASDIR [facility] Multivitamins (Theragran) 1 tab PO DAILY [facility] Last Admin: 03/19/18 07:40 Dose: 1 tab Ondansetron HCl (Zofran) 4 mg IVP Q6H PRN PRN Reason: Nausea/Vomiting Ondansetron HCl (Zofran Odt) 8 mg PO Q8HR PRN PRN Reason: Nausea Ondansetron HCl (Zofran Odt) 4 mg PO Q6H PRN PRN Reason: Nausea/Vomiting Rifaximin (Xifaxan) 550 mg PO BID [facility] Last Admin: 03/19/18 07:40 Dose: 550 mg Sodium Chloride (Flush - Normal Saline) 10 ml IVF Q12HR [facility] Last Admin: 03/19/18 07:41 Dose: Not Given Sodium Chloride (Flush - Normal Saline) 10 ml IVF PRN PRN PRN Reason: Saline Flush Tamsulosin HCl (Flomax) 0.4 mg PO DAILY [facility] Last Admin: 03/19/18 07:40 Dose: 0.4 mg Thiamine HCl (Thiamine) 100 mg PO DAILY [facility] Last Admin: 03/19/18 07:40 Dose: 100 mg Tramadol HCl (Ultram) 50 mg PO Q8H PRN PRN Reason: Moderate Pain (4-6) Last Admin: 03/19/18 03:29 Dose: 50 mg
--- NOTE | 2018-03-19 18:21 | PRG ---
DATE OF SERVICE: 03/19/2018 SUBJECTIVE: Mr. Resendiz feels little better. He is not eating much. He is going to the bathroom. OBJECTIVE: VITAL SIGNS: Temperature 97, pulse 86, blood pressure is 147/84. ABDOMEN: Soft, nontender. LUNGS: Clear. ABDOMEN: Soft. Protuberant with shifting dullness. Nontender. EXTREMITIES: No clubbing, cyanosis, or edema. NEUROLOGIC: He is a little bit tremulous. LABORATORY DATA: White count 9.1. No CBC today. Sodium 136 today, potassium 3.8. BUN and creatinine 2.38 and 28, improving. Microbiology, bloody fluid culture still did show gram-negative rods, identification pending. ASSESSMENT: No criteria for spontaneous bacterial peritonitis on tap, although we will await for the cultures. I suspect it is a contaminant. We will continue the Levaquin until then. 1. Acute renal insufficiency, likely related to dehydration, possible infection. Continues treatment. Urinalysis was negative on admission. He did not have blood cultures drawn. 2. Hepatic encephalopathy. 3. Cirrhosis secondary to alcohol abuse. He stopped drinking on the . He was not paracentesis dependent in the outpatient setting. He is actually following up with me for about 9 months, was sober, but started drinking again several months ago. RECOMMENDATIONS: 1. Continue rifaximin. Continue thiamine, multivitamin, folate. 2. Watch for any signs of DTs, although this is hospital day 4, and that is likely not to be the case. His was pretty adamant that he has not drank since the 04 of March. 3. Continue albumin and IV fluids until renals insufficiency resolves, then may try a low-dose diuretics and monitor renal function closely before discharge. Job ID: [id number]
[2018-03-19] MEDS: Magnesium Oxide 400 MG TAB PO SCH (20:16)
[2018-03-20] MEDS: Folic Acid 1 MG TAB PO SCH (08:27)
[2018-03-20] MEDS: Rifaximin 550 MG TAB PO SCH ×2 (08:28→20:37)
[2018-03-20] MEDS: Multivit, Therapeutic 1 TAB PO SCH (08:28)
[2018-03-20] MEDS: Tamsulosin HCl 0.4 MG CAP PO SCH (08:28)
[2018-03-20] MEDS: Escitalopram Oxalate 10 mg Tablet PO SCH (08:28)
[2018-03-20 11:01] LABS: Band 4 % (5-11); Eosinophils 6 % (0-10); Hemoglobin 8.8 g/dL (14.0-18.0); Hypochromia SLIGHT = 6-15 cells (100X) (0-5/hpf); Lymphocytes 7 % (21-51); MDiff Complete? YES; Mean Corpuscular HGB CONC 31.7 g/dL (32.0-36.0); Mean Corpuscular Hemoglobin 39.5 pg (27.0-31.0); Mean Platelet Volume 8.8 fL (7.4-10.4); Microcytosis SLIGHT = 6-15 cells (100X) (0-5/hpf); Monocytes 19 % (0-10); Neutrophil 58 % (42-75); Platelet Count 67 thou/uL (130-400); Platelet Morphology Comment Appears Decreased; Polychromasia SLIGHT = 2-3 cells (100X) (0-2/hpf); RBC Distribution Width 15.2 % (11.5-14.5); Reactive Lymphocytes 6 % (0-10); Red Blood Cell (RBC) Count 2.22 mill/uL (4.70-6.10)
[2018-03-20 11:43] LABS: Anion Gap 14 mmol/L (10-20); BUN (Urea Nitrogen) 19 mg/dL (8.4-25.7); Calc. Creatinine Clearance 46 mL/min (70-130); Calcium 8.4 mg/dL (7.8-10.44); Carbon Dioxide 14 mmol/L (22-29); Chloride 108 mmol/L (98-107); Estimated GFR-MDRD 34; Glucose 89 mg/dL (70-105); Potassium 5.1 mmol/L (3.5-5.1); Sodium 131 mmol/L (136-145)
[2018-03-20] MEDS: traMADol HCl 50 MG TAB PO PRN ×2 (12:39→20:37)
[2018-03-20] MEDS: Dextrose 5 % And 0.9 % NaCl 1,000 ML IV SCH (14:27)
--- NOTE | 2018-03-20 16:01 | PRG ---
DATE OF SERVICE: 03/20/2018 SUBJECTIVE: Patient was seen and examined at bedside and overnight events noted. Patient denies any shortness of breath or chest pain or palpitation. No history of nausea or vomiting or diarrhea or fever or chills or cramps. OBJECTIVE: GENERAL: This is a well-built male, in no apparent distress. VITAL SIGNS: Temperature 98.3, pulse 92, respiratory rate 18, blood pressure 131/85. HEENT: Atraumatic, normocephalic. Oral mucosa is moist NECK: Supple. CARDIOVASCULAR: S1, S2 heard. Rate and rhythm regular. RESPIRATORY: Clear to auscultation. GASTROINTESTINAL: Abdomen is soft. MUSCULOSKELETAL: No tenderness. No edema. DERMATOLOGIC: No skin rash. NEUROLOGIC: Alert and awake and oriented X3. No focal neurologic deficits. Moving all the extremities. PSYCHIATRIC: Mood and affect normal. LABORATORY DATA: Potassium is 5.0, BUN is 19, creatinine is 2.02. ASSESSMENT AND PLAN: 1. Acute kidney injury, much better. We will stop IV fluids. 2. Chronic kidney disease, stage 3. 3. Edema with ascites. 4. History of hepatorenal syndrome. 5. Cirrhosis. Overall, labs are better. We will stop IV fluids. We will monitor. Job ID: [id number]
--- NOTE | 2018-03-20 16:22 | PDOC.PN ---
- Subjective Encounter Start Date: 03/20/18 Encounter Start Time: 09:15 Subjective: pt up in bed complains of have diarrhea - Objective Resuscitation Status - Order Detail: 03/16/18 19:50 Resuscitation Status Routine Resuscitation Status: FULL: Full Resuscitation Vital Signs & Weight: Vital Signs (12 hours) Temp Pulse Resp BP BP Pulse Ox 03/20/18 08:00 131/85 94 L 03/20/18 07:46 98.3 F 92 18 131/85 94 L Weight Weight 176 lb I&O: 03/19/18 03/20/18 03/21/18 06:59 06:59 06:59 Intake Total 3280 1130 Balance 3280 1130 Result Diagrams: 03/20/18 07:37 03/20/18 10:30 Additional Labs: Accuchecks 03/20/18 03/20/18 03/19/18 12:07 04:50 19:28 POC Glucose 93 110 136 H 03/19/18 17:10 POC Glucose 119 H Phys Exam - Physical Examination Neck: no nodes, no JVD, supple, full ROM Respiratory: no wheezing, no rales, no rhonchi, wheezing present, clear to auscultation bilateral Cardiovascular: RRR, no significant murmur, no rub, gallop, irregular Gastrointestinal: soft, positive bowel sounds mild tenderness all over Dx/Plan (1) Decompensation of cirrhosis of liver Code(s): K72.90 - HEPATIC FAILURE, UNSPECIFIED WITHOUT COMA Status: Acute (2) Abdominal pain Code(s): R10.9 - UNSPECIFIED ABDOMINAL PAIN Status: Acute (3) MAHNAZ (acute kidney injury) Code(s): N17.9 - ACUTE KIDNEY FAILURE, UNSPECIFIED Status: Acute (4) Portal vein thrombosis Code(s): I81 - PORTAL VEIN THROMBOSIS Status: Acute Comment: GI consult pending - Plan will continue abx, s/p 4L out -: creatinine is improving, will hold lactulose due to diarrhea -: pt complains of pain all over abd and body, tramadol ordered * . Review of Systems - Review of Systems Respiratory: negative: Cough, Dry, Shortness of Breath, Hemoptysis, SOB with Excertion, Pleuritic Pain, Sputum, Wheezing Cardiovascular: negative: chest pain, palpitations, orthopnea, paroxysmal nocturnal dyspnea, edema, light headedness, other Gastrointestinal: Diarrhea - Medications/Allergies Allergies/Adverse Reactions: Allergies Allergy/AdvReac Type Severity Reaction Status Date / Time No Known Allergies Allergy Verified 03/04/18 21:48 Medications: Current Medications Dextrose/Water (Dextrose 50%) 25 gm SLOW IVP PRN PRN PRN Reason: Hypoglycemia Escitalopram Oxalate (Lexapro) 10 mg PO DAILY [facility] Last Admin: 03/20/18 08:28 Dose: 10 mg Folic Acid (Folvite) 1 mg PO DAILY [facility] Last Admin: 03/20/18 08:27 Dose: 1 mg Glucagon (Glucagon) 1 mg IM PRN PRN PRN Reason: Hypoglycemia Dextrose/Water (D5w) 1,000 mls @ 0 mls/hr IV .Q0M PRN PRN Reason: Hypoglycemia Levofloxacin 250 mg/ Device 50 mls @ 100 mls/hr IVPB Q24HR [facility] Last Admin: 03/19/18 17:00 Dose: 50 mls Lactulose (Lactulose) 20 gm PO DAILY [facility] Last Admin: 03/20/18 08:29 Dose: 20 gm Magnesium Oxide (Magnesium Oxide) 400 mg PO HS [facility] Last Admin: 03/19/18 20:16 Dose: 400 mg Melatonin (Melatonin) 3 mg PO HS PRN PRN Reason: Insomnia Miscellaneous (Ase Protocol) 1 each FS ASDIR [facility] Multivitamins (Theragran) 1 tab PO DAILY [facility] Last Admin: 03/20/18 08:28 Dose: 1 tab Ondansetron HCl (Zofran) 4 mg IVP Q6H PRN PRN Reason: Nausea/Vomiting Ondansetron HCl (Zofran Odt) 8 mg PO Q8HR PRN PRN Reason: Nausea Ondansetron HCl (Zofran Odt) 4 mg PO Q6H PRN PRN Reason: Nausea/Vomiting Rifaximin (Xifaxan) 550 mg PO BID [facility] Last Admin: 03/20/18 08:28 Dose: 550 mg Sodium Chloride (Flush - Normal Saline) 10 ml IVF Q12HR [facility] Last Admin: 03/20/18 08:29 Dose: 10 ml Sodium Chloride (Flush - Normal Saline) 10 ml IVF PRN PRN PRN Reason: Saline Flush Tamsulosin HCl (Flomax) 0.4 mg PO DAILY [facility] Last Admin: 03/20/18 08:28 Dose: 0.4 mg Thiamine HCl (Thiamine) 100 mg PO DAILY [facility] Last Admin: 03/20/18 08:28 Dose: 100 mg Tramadol HCl (Ultram) 50 mg PO Q8H PRN PRN Reason: Moderate Pain (4-6) Last Admin: 03/20/18 12:39 Dose: 50 mg
[2018-03-20] MEDS: Magnesium Oxide 400 MG TAB PO SCH (20:40)
[2018-03-21] MEDS: Folic Acid 1 MG TAB PO SCH (08:27)
[2018-03-21] MEDS: Escitalopram Oxalate 10 mg Tablet PO SCH (08:27)
[2018-03-21] MEDS: Tamsulosin HCl 0.4 MG CAP PO SCH (08:27)
[2018-03-21] MEDS: Multivit, Therapeutic 1 TAB PO SCH (08:27)
[2018-03-21] MEDS: Rifaximin 550 MG TAB PO SCH ×2 (08:27→20:16)
[2018-03-21] MEDS: traMADol HCl 50 MG TAB PO PRN ×2 (08:43→17:16)
[2018-03-21 10:27] LABS: Anion Gap 15 mmol/L (10-20); BUN (Urea Nitrogen) 20 mg/dL (8.4-25.7); Calc. Creatinine Clearance 51 mL/min (70-130); Calcium 8.9 mg/dL (7.8-10.44); Carbon Dioxide 18 mmol/L (22-29); Chloride 107 mmol/L (98-107); Estimated GFR-MDRD 39; Glucose 103 mg/dL (70-105); Potassium 3.9 mmol/L (3.5-5.1); Sodium 136 mmol/L (136-145)
--- NOTE | 2018-03-21 14:27 | PRG ---
DATE OF SERVICE: 03/21/2018 SUBJECTIVE: Patient was seen and examined at bedside and overnight events noted. Patient denies any shortness of breath or chest pain or palpitation. No history of nausea or vomiting or diarrhea or fever or chills or cramps. OBJECTIVE: GENERAL: This is a well-built male, in no apparent distress. VITAL SIGNS: Temperature . Heart rate 90. Respiratory rate 18. Blood pressure 102/72. HEENT: Atraumatic, normocephalic. Oral mucosa is moist NECK: Supple. CARDIOVASCULAR: S1, S2 heard. Rate and rhythm regular. RESPIRATORY: Clear to auscultation. GASTROINTESTINAL: Abdomen is soft. MUSCULOSKELETAL: No tenderness. No edema. DERMATOLOGIC: No skin rash. NEUROLOGIC: Alert and awake and oriented X3. No focal neurologic deficits. Moving all the extremities. PSYCHIATRIC: Mood and affect normal. LABORATORY DATA: Potassium is 3.9, BUN is 20, and creatinine is 1.8. ASSESSMENT AND PLAN: 1. Acute kidney injury, much better. 2. Chronic kidney disease, stage 3. 3. Edema. 4. Hepatorenal syndrome. 5. Cirrhosis. Labs are better. Creatinine almost back to baseline. We will follow. Job ID: [id number]
--- NOTE | 2018-03-21 15:50 | PDOC.PN ---
- Subjective Encounter Start Date: 03/21/18 Encounter Start Time: 15:45 Subjective: f/u for decompensated hepatic cirrhosis and MAHNAZ. reports pt -: hallucinating, confused, minimal ambulation and has not had any PT. - Objective Resuscitation Status - Order Detail: 03/16/18 19:50 Resuscitation Status Routine Resuscitation Status: FULL: Full Resuscitation MAR Reviewed: Yes Vital Signs & Weight: Vital Signs (12 hours) Temp Pulse Resp BP BP Pulse Ox 03/21/18 12:54 97.6 F 93 18 102/72 96 03/21/18 12:00 102/72 03/21/18 08:47 98.3 F 91 18 120/72 96 03/21/18 08:00 120/72 96 Weight Weight 176 lb I&O: 03/20/18 03/21/18 03/22/18 06:59 06:59 06:59 Intake Total 1130 Balance 1130 Result Diagrams: 03/20/18 07:37 03/21/18 09:24 Additional Labs: Accuchecks 03/21/18 03/21/18 03/20/18 11:39 04:46 19:38 POC Glucose 104 79 118 H 03/20/18 16:31 POC Glucose 96 Microbiology 03/17/18 11:55 Ascites Fluid Body Fluid Culture - Final Presumptive Corynebacterium sp Laboratory Tests 03/16/18 03/16/18 03/17/18 16:38 16:38 05:25 Hgb 9.8 L Plt Count 95 L Creatinine 3.49 H 3.46 H 03/17/18 03/18/18 03/19/18 05:25 08:37 06:35 Hgb 9.6 L Plt Count 87 L Creatinine 2.90 H 2.38 H 03/20/18 10:30 Hgb Plt Count Creatinine 2.02 H Phys Exam - Physical Examination lethargic, mumbles answers to a few questions + scleral icterus HEENT: PERRLA, oral pharynx no lesions Neck: no nodes, no JVD, supple, full ROM Respiratory: no wheezing, no rales, no rhonchi, clear to auscultation bilateral S1, S2 Cardiovascular: RRR, no significant murmur, no rub, gallop distended, + ascites Gastrointestinal: non-tender, positive bowel sounds Musculoskeletal: pulses present, edema present Neurological: moves all 4 limbs A x O x 2 Deviation from normal: + jaundice Skin: normal turgor, cap refill <2 seconds Dx/Plan (1) Acute hepatic encephalopathy Code(s): K72.00 - ACUTE AND SUBACUTE HEPATIC FAILURE WITHOUT COMA Status: Acute Comment: Continue Lactulose, Ativan prn (2) Decompensation of cirrhosis of liver Code(s): K72.90 - HEPATIC FAILURE, UNSPECIFIED WITHOUT COMA Status: Acute Comment: Continue Xifaxan, Lactulose titrating to BM frequency, appears end- stage process (3) MAHNAZ (acute kidney injury) Code(s): N17.9 - ACUTE KIDNEY FAILURE, UNSPECIFIED Status: Acute Comment: Slow improvement, avoid nephrotoxic meds and limit contrast (4) Hepatorenal syndrome Code(s): K76.7 - HEPATORENAL SYNDROME Status: Acute Comment: Continue mgmt as outlined previously (5) Alcohol abuse Code(s): F10.10 - ALCOHOL ABUSE, UNCOMPLICATED Status: Chronic Comment: Ativan, MVI, Thiamine, Folate, ASE protocol (6) Coagulopathy Status: Chronic Comment: Avoid NSAIDs, anticoagulation - Plan plan discussed w/ family, continue antibiotics, PT/OT, 7th grade social studies teacher, out of bed/ambulate Continue supportive mgmt -: ? Palliative care screening -: Increase Lactulose 20gm TID -: Ativan 1mg IV q4h prn withdrawal/agitation -: PT evaluation for OOB/ambulation * AM lab: CMP, Ammonia
[2018-03-21] MEDS: Magnesium Oxide 400 MG TAB PO SCH (20:16)
[2018-03-22] MEDS: Lorazepam 2 MG/ML VIAL SLOW IVP PRN ×2 (00:16→11:25)
[2018-03-22] MEDS: Melatonin 3 MG TAB PO PRN ×2 (01:10→21:27)
[2018-03-22 04:23] LABS: ALT (SGPT) 28 U/L (8-55); AST (SGOT) 62 U/L (5-34); Albumin 3.1 g/dL (3.5-5.0); Alkaline Phosphatase 81 U/L (40-150); Anion Gap 16 mmol/L (10-20); BUN (Urea Nitrogen) 21 mg/dL (8.4-25.7); Bilirubin, Total 11.1 mg/dL (0.2-1.2); Calc. Creatinine Clearance 51 mL/min (70-130); Calcium 9.1 mg/dL (7.8-10.44); Carbon Dioxide 17 mmol/L (22-29); Chloride 109 mmol/L (98-107); Estimated GFR-MDRD 39; Globulin 2.7 g/dL (2.4-3.5); Glucose 89 mg/dL (70-105); Potassium 4.1 mmol/L (3.5-5.1); Protein, Total 5.8 g/dL (6.0-8.3); Sodium 138 mmol/L (136-145)
[2018-03-22] MEDS: Tamsulosin HCl 0.4 MG CAP PO SCH (08:23)
[2018-03-22] MEDS: Multivit, Therapeutic 1 TAB PO SCH (08:23)
[2018-03-22] MEDS: Rifaximin 550 MG TAB PO SCH ×2 (08:23→20:10)
[2018-03-22] MEDS: Escitalopram Oxalate 10 mg Tablet PO SCH (08:23)
[2018-03-22] MEDS: Folic Acid 1 MG TAB PO SCH (08:23)
--- NOTE | 2018-03-22 12:29 | PDOC.PN ---
- Subjective Encounter Start Date: 03/22/18 Encounter Start Time: 12:05 Subjective: f/u for hepatic encephalopathy, ESLD and ? SBP on Levaquin. Intermittent -: intervals of lucidity and confusion. Ambulated with RW with PT. - Objective Resuscitation Status - Order Detail: 03/16/18 19:50 Resuscitation Status Routine Resuscitation Status: FULL: Full Resuscitation MAR Reviewed: Yes Vital Signs & Weight: Vital Signs (12 hours) Temp Pulse Resp BP BP BP Pulse Ox 03/22/18 12:01 122/71 03/22/18 10:58 97.9 F 98 22 H 122/71 95 03/22/18 09:32 145/77 H 03/22/18 08:00 20 03/22/18 07:35 135/72 93 L 03/22/18 07:21 97.8 F 110 H 22 H 135/72 93 L 03/22/18 04:00 111/69 03/22/18 03:47 98.5 F 107 H 16 111/69 96 03/22/18 00:55 98 F 110 H 16 150/70 H 94 L Pulse Ox 03/22/18 12:01 03/22/18 10:58 03/22/18 09:32 93 L 03/22/18 08:00 03/22/18 07:35 03/22/18 07:21 03/22/18 04:00 03/22/18 03:47 03/22/18 00:55 Weight Weight 176 lb I&O: 03/21/18 03/22/18 03/23/18 06:59 06:59 06:59 Intake Total 710 Balance 710 Result Diagrams: 03/20/18 07:37 03/22/18 03:54 Additional Labs: Accuchecks 03/22/18 03/22/18 03/21/18 11:00 03:46 20:10 POC Glucose 257 H 93 102 03/21/18 03/21/18 16:31 11:39 POC Glucose 137 H 104 Microbiology 03/17/18 11:55 Ascites Fluid Body Fluid Culture - Final Presumptive Corynebacterium sp Laboratory Tests 03/16/18 03/16/18 03/17/18 16:38 16:38 05:25 Hgb 9.8 L Plt Count 95 L Creatinine 3.49 H 3.46 H 03/17/18 03/18/1803/19/19 05:25 08:37 06:35 Hgb 9.6 L Plt Count 87 L Creatinine 2.90 H 2.38 H 03/20/18 10:30 Hgb Plt Count Creatinine 2.02 H Laboratory Tests 03/16/18 03/22/18 16:38 03:54 Ammonia 25 39 Phys Exam - Physical Examination mumbling, alert + scleral icterus HEENT: PERRLA, oral pharynx no lesions Neck: no nodes, no JVD, supple, full ROM diminished in bases Respiratory: no wheezing, no rhonchi Cardiovascular: RRR + distention, ascites, umbilical hernia Gastrointestinal: soft, positive bowel sounds Musculoskeletal: no edema, pulses present +tremor Neurological: normal sensation, moves all 4 limbs Oriented to name, place but not year or day Skin: normal turgor, cap refill <2 seconds Dx/Plan (1) Acute hepatic encephalopathy Code(s): K72.00 - ACUTE AND SUBACUTE HEPATIC FAILURE WITHOUT COMA Status: Acute Comment: Resume Lactulose, Ativan prn, re-orientation techniques (2) Decompensation of cirrhosis of liver Code(s): K72.90 - HEPATIC FAILURE, UNSPECIFIED WITHOUT COMA Status: Acute Comment: Continue Xifaxan, Lactulose titrating to BM frequency, appears end- stage process (3) MAHNAZ (acute kidney injury) Code(s): N17.9 - ACUTE KIDNEY FAILURE, UNSPECIFIED Status: Acute Comment: Slow improvement, avoid nephrotoxic meds and limit contrast (4) Hepatorenal syndrome Code(s): K76.7 - HEPATORENAL SYNDROME Status: Acute Comment: Continue mgmt as outlined previously (5) Alcohol abuse Code(s): F10.10 - ALCOHOL ABUSE, UNCOMPLICATED Status: Chronic Comment: Ativan, MVI, Thiamine, Folate, ASE protocol (6) Coagulopathy Status: Chronic Comment: Avoid NSAIDs, anticoagulation - Plan continue antibiotics, PT/OT, senior administrative services officer, out of bed/ambulate Stable currently -: OOB/PT -: MELD score - 39 with 3-month mortality 52% -: Palliative care consult -: AM lab: BMP, CBC * .
--- NOTE | 2018-03-22 14:19 | PRG ---
DATE OF SERVICE: 03/22/2018 SUBJECTIVE: A 57-year-old gentleman, being seen for acute kidney injury. The patient denied any nausea, vomiting, or chest pain. OBJECTIVE: CONSTITUTIONAL: The patient is awake and alert. VITAL SIGNS: Afebrile, pulse 98, breathing 16, blood pressure 122/71. GENERAL APPEARANCE AND MENTAL STATUS: Fair. HEAD/NECK: Normocephalic. Atraumatic. EYES: EOMI. No deformity. EARS: Clear. No ulcers. NOSE: Intact. No lesions. MOUTH: Clear. No discharge. THROAT: Clear. No exudate. LUNGS: Clear. No crackles. CARDIAC: S1, S2. No rub. ABDOMEN: Benign. Bowel sounds positive. GENITALIA/RECTUM: De Jesus absent. BACK/EXTREMITIES: Edema 0+. NEUROLOGICAL: Alert and motor intact. SKIN: LYMPHATICS: LABORATORY DATA: Labs show hemoglobin 8.8, creatinine 1.8. ASSESSMENT AND PLAN: 1. Acute kidney injury, improved. 2. Hypertension, stable. 3. Anemia, stable. 4. Medications based on GFR appropriate. No indication for dialysis. Job ID: [id number]
--- NOTE | 2018-03-22 16:27 | PRG ---
DATE OF SERVICE: 03/22/2018 SUBJECTIVE: Mr. Resendiz's notes that he is more confused today. He states he is going to a . He has had no bowel movements today. Apparently, his lactulose was stopped sometime over the weekend, although the nurse and the patient's report he had about 3 bowel movements yesterday. It was just restarted this afternoon. He was a little agitated and he was given Ativan this afternoon. He is not agitated now, but really does not know where he is. OBJECTIVE: VITAL SIGNS: Temperature is 97.9, pulse 98, blood pressure 122/71. He has been afebrile for several days. MEDICATIONS: 1. Prophylactically lactulose started today t.i.d., 1st dose given at 1441 hours. 2. Levofloxacin continues, day #5. 3. Ativan started yesterday. 4. Mag oxide. 5. Melatonin. 6. Multivitamin. 7. Zofran. 8. Rifaximin. 9. Thiamine. 10. Tramadol. PHYSICAL EXAMINATION: GENERAL: He is mildly icteric, has long hair, is a little confused, but he is not combative, he is in the side of the bed. LUNGS: Clear. HEART: Regular. No murmurs. ABDOMEN: Soft. There is slight fluid wave, but it is not tense or distended. EXTREMITIES: There is trace edema. LABORATORY STUDIES: No CBC today. Sodium 138, potassium 4.1, BUN and creatinine are 21 and 1.81, glucose 257. Bilirubin is 11. AST and ALT are 20 and 81. Ammonia is 39 today. Albumin 3.1. ASSESSMENT: 1. Alcoholic cirrhosis. 2. Admission with hepatorenal failure, acute renal failure, which is now improved. 3. Corynebacterium contaminant. 4. Confusion, I am not sure he has encephalopathy. There is quite a bit of shaking tremor. He may have some Wernicke-Korsakoff going on, but I would restart his lactulose in addition to the Xifaxan. I have taught the nurse to give him an extra dose in an hour. If he has not gone again, then I will recommend stopping Ativan. It is likely to exacerbate hepatic encephalopathy. PLAN: 1. Stop Ativan. 2. Lactulose every hour until the patient's mental status improves, then titrate 3 to 5 ounce a day. 3. Continue Xifaxan. 4. Stop antibiotics. We will follow along with you. Job ID: [id number]
[2018-03-22] MEDS: Magnesium Oxide 400 MG TAB PO SCH (20:09)
[2018-03-22] MEDS: traMADol HCl 50 MG TAB PO PRN (21:20)
[2018-03-23] MEDS ORDERED: Lorazepam 2 MG/ML VIAL SLOW IVP SCH ×2 (02:15→10:30)
--- NOTE | 2018-03-23 06:14 | PDOC.EVN ---
Event Note - Event Note Event Note: nurse called stated pt very restless and is having laboured breathing. Pt's abd distended. ?starting him back on his diuretics. will order paracentesis on him.
[2018-03-23] MEDS: Multivit, Therapeutic 1 TAB PO SCH (07:45)
[2018-03-23] MEDS: Rifaximin 550 MG TAB PO SCH ×2 (07:45→20:33)
[2018-03-23] MEDS: Folic Acid 1 MG TAB PO SCH (07:45)
[2018-03-23] MEDS: Tamsulosin HCl 0.4 MG CAP PO SCH (07:45)
[2018-03-23] MEDS: Escitalopram Oxalate 10 mg Tablet PO SCH (07:46)
[2018-03-23 09:01] LABS: PTT 62.9 SEC (22.9-36.1)
[2018-03-23 09:05] LABS: INR-International Normal Ratio 4.5
[2018-03-23 09:16] LABS: Anion Gap 18 mmol/L (10-20); BUN (Urea Nitrogen) 24 mg/dL (8.4-25.7); Calc. Creatinine Clearance 46 mL/min (70-130); Calcium 9.8 mg/dL (7.8-10.44); Carbon Dioxide 15 mmol/L (22-29); Chloride 108 mmol/L (98-107); Estimated GFR-MDRD 35; Glucose 83 mg/dL (70-105); Potassium 4.2 mmol/L (3.5-5.1); Sodium 137 mmol/L (136-145)
[2018-03-23 09:19] LABS: Hemoglobin 8.6 g/dL (14.0-18.0); Mean Corpuscular HGB CONC 30.9 g/dL (32.0-36.0); Mean Corpuscular Hemoglobin 37.8 pg (27.0-31.0); Mean Platelet Volume 8.7 fL (7.4-10.4); Platelet Count 84 thou/uL (130-400); RBC Distribution Width 14.6 % (11.5-14.5); Red Blood Cell (RBC) Count 2.26 mill/uL (4.70-6.10); White Blood Cell (WBC) Count 12.4 thou/uL (4.8-10.8)
[2018-03-23 09:49] LABS: Band 6 % (5-11); Eosinophils 1 % (0-10); Hypochromia SLIGHT = 6-15 cells (100X) (0-5/hpf); Lymphocytes 15 % (21-51); MDiff Complete? YES; Macrocytosis MARKED = >30 cells (100X) (0-5/hpf); Monocytes 15 % (0-10); Neutrophil 60 % (42-75); Platelet Morphology Comment Appears Decreased; Polychromasia SLIGHT = 2-3 cells (100X) (0-2/hpf); Reactive Lymphocytes 1 % (0-10)
[2018-03-23] MEDS ORDERED: Phytonadione 10 MG/ML AMP SC SCH (10:00)
[2018-03-23] MEDS ORDERED: Lorazepam 2 MG/ML VIAL SLOW IVP PRN (10:23)
--- NOTE | 2018-03-23 10:43 | PDOC.PN ---
- Subjective Encounter Start Date: 03/23/18 Encounter Start Time: 10:35 Subjective: f/u for ESLD, hepatic encephalopathy and ascites. Nsg reports pt -: more combative, throwing a walker and pushing family members. -: Family reports worsening confusion. - Objective Resuscitation Status - Order Detail: 03/16/18 19:50 Resuscitation Status Routine Resuscitation Status: FULL: Full Resuscitation MAR Reviewed: Yes Vital Signs & Weight: Vital Signs (12 hours) Temp Pulse Resp BP BP BP Pulse Ox 03/23/18 07:43 132/73 03/23/18 07:25 95 03/23/18 06:58 98.1 F 118 H 24 H 132/73 95 03/23/18 00:00 99.0 F 112 H 20 133/78 133/78 94 L Weight Weight 176 lb I&O: 03/22/18 03/23/18 03/24/18 06:59 06:59 06:59 Intake Total 710 843 Balance 710 843 Result Diagrams: 03/23/18 08:27 03/23/18 08:27 Additional Labs: Accuchecks 03/23/18 03/23/18 03/22/18 06:17 05:20 19:07 POC Glucose 87 60 L 152 H 03/22/18 03/22/18 16:50 11:00 POC Glucose 96 257 H Microbiology 03/17/18 11:55 Ascites Fluid Body Fluid Culture - Final Presumptive Corynebacterium sp Laboratory Tests 03/16/18 03/16/18 03/16/18 16:38 16:38 16:38 Hgb 9.8 L Plt Count 95 L Creatinine 3.49 H Ammonia 25 03/17/18 03/17/18 03/18/18 05:25 05:25 08:37 Hgb 9.6 L Plt Count 87 L Creatinine 3.46 H 2.90 H Ammonia 03/19/18 03/20/18 03/22/18 06:35 10:30 03:54 Hgb Plt Count Creatinine 2.38 H 2.02 H Ammonia 39 Laboratory Tests 03/04/18 03/13/18 03/23/18 18:30 21:04 08:27 INR 2.4 2.5 4.5 H* Phys Exam - Physical Examination mumbling, lethargic, anxious + scleral icterus HEENT: PERRLA, oral pharynx no lesions Neck: no nodes, no JVD, supple, full ROM diminished in bases Respiratory: no wheezing, no rales, no rhonchi tachycardic S1, S2 Cardiovascular: no significant murmur, no rub, gallop distended, +ascites Gastrointestinal: soft, positive bowel sounds Musculoskeletal: no edema, pulses present tremors at rest/movement Neurological: moves all 4 limbs A x O x 1 Deviation from normal: + generalized jaundice Skin: normal turgor, cap refill <2 seconds Dx/Plan (1) Acute hepatic encephalopathy Code(s): K72.00 - ACUTE AND SUBACUTE HEPATIC FAILURE WITHOUT COMA Status: Acute Comment: Resume Lactulose, Ativan prn, re-orientation techniques, worsening (2) Decompensation of cirrhosis of liver Code(s): K72.90 - HEPATIC FAILURE, UNSPECIFIED WITHOUT COMA Status: Acute Comment: Continue Xifaxan, Lactulose titrating to BM frequency, appears end- stage process, MELD score = 39 (3) MAHNAZ (acute kidney injury) Code(s): N17.9 - ACUTE KIDNEY FAILURE, UNSPECIFIED Status: Acute Comment: Slow improvement, avoid nephrotoxic meds and limit contrast (4) Hepatorenal syndrome Code(s): K76.7 - HEPATORENAL SYNDROME Status: Acute Comment: Continue mgmt as outlined previously (5) Alcohol abuse Code(s): F10.10 - ALCOHOL ABUSE, UNCOMPLICATED Status: Chronic Comment: Ativan, MVI, Thiamine, Folate, ASE protocol (6) Coagulopathy Status: Chronic Comment: Avoid NSAIDs, anticoagulation, 2u FFP, Vitamin K 10mg sc now and 5mg po daily - Plan plan discussed w/ family, PT/OT, social media senior associate, DVT proph w/SCDs Continues with worsening encephalopathy, Ativan, Lactulose, Xifaxan -: Plan for paracentesis -: FFP/Vit K today -: Ativan IV now, wrist restraints due to combativeness -: AM lab: CMP, CBC, PT/INR * .
--- NOTE | 2018-03-23 11:36 | PRG ---
DATE OF SERVICE: 03/23/2018 SUBJECTIVE: This is a 57-year-old gentleman, being seen for end-stage renal disease. The patient denied any nausea, vomiting, or chest pain. OBJECTIVE: GENERAL: Awake and alert. VITAL SIGNS: Afebrile, pulse 75, breathing 16, blood pressure was 132/73. GENERAL APPEARANCE AND MENTAL STATUS: Fair. HEAD/NECK: Normocephalic. Atraumatic. EYES: EOMI. No deformity. EARS: Clear. No ulcers. NOSE: Intact. No lesions. MOUTH: Clear. No discharge. THROAT: Clear. No exudate. LUNGS: Clear. No crackles. CARDIAC: S1, S2. No rub. ABDOMEN: Benign. Bowel sounds positive. GENITALIA/RECTUM: De Jesus absent. BACK/EXTREMITIES: Edema 0+. NEUROLOGICAL: Alert and motor intact. LABORATORY DATA: Reviewed. ASSESSMENT: 1. Stage 6 chronic kidney disease, on hemodialysis. 2. Hypertensive, stable. 3. Anemia, stable. 4. Medications based on GFR appropriate. Job ID: [id number]
[2018-03-23] MEDS ORDERED: Phytonadione 10 MG in Sodium Chloride 0.9% 50 ML IVPB SCH (14:30)
--- NOTE | 2018-03-23 15:15 | PRG ---
DATE OF SERVICE: 03/23/2018 SUBJECTIVE: Mr. Resendiz is much more confused today. Apparently, he received Ativan last night and this morning for being very confused and combative. He is now restrained. He had multiple bowel movements yesterday per the nurse. He is voiding a very little. He has had some drainage. MEDICATIONS: 1. Lexapro. 2. Folvite. 3. Lactulose. He has not had that because he will not drink anything. 4. Magnesium oxide. 5. Melatonin. 6. Zofran. 7. Xifaxan. 8. Multivitamin. 9. Thiamine. OBJECTIVE: GENERAL: He is icteric. He is in bed. He is combative. VITAL SIGNS: Temperature is 99, pulse 118, blood pressure 132/73. SKIN: He is icteric. LUNGS: Clear. ABDOMEN: Soft and nontender. There is ascites draining over his drain in the right abdomen. EXTREMITIES: Reveal trace edema. NEUROLOGIC: He is unresponsive to person, place, or time. LABORATORY DATA: White count 12,500, hemoglobin 8.6, platelet count 84,000. INR is 4.5 today. Sodium 137, potassium 4.2, BUN and creatinine 24 and 1.98. Microbiology, none at this time. ASSESSMENT: 1. Severe encephalopathy, worsening. Some of this is his hepatic dysfunction and some of it is Ativan. He has received that a couple of nights in a row. It was discontinued yesterday, but he became very combative and it was given again. Family is not ready to make him DNR. Palliative Care has been consulted yesterday, but does not come by yet. I have had a 30-minute discussion with regard to palliative care and hospice care. They are not accepting of that decision at this time. 2. Severe coagulopathy. 3. Increasing white blood cell count. 4. He is n.p.o., does not eat or drink anything. RECOMMENDATIONS: 1. Switch all medicines to IV. 2. D5 normal saline at 75 mL an hour. 3. NG tube for lactulose. 4. Vitamin K. He is going to have some FFP given apparently per Dr. Youssef's orders. I think it is a good idea. He needs to get lactulose and Xifaxan, and I asked the nurse to place an NG tube to do this. Job ID: [id number]
[2018-03-23] MEDS: Propranolol 10 MG TAB PER TUBE SCH ×2 (17:56→20:33)
[2018-03-23] MEDS: Dextrose 5 % And 0.9 % NaCl 1,000 ML IV SCH (18:04)
[2018-03-23] MEDS ORDERED: Ziprasidone 20 MG VIAL ONE ×2 (18:54→18:56)
[2018-03-23] MEDS ORDERED: Ziprasidone 20 MG VIAL IM SCH (19:00)
[2018-03-23] MEDS ORDERED: Sterile Water 10 ML VIAL FS SCH (19:00)
[2018-03-23] MEDS: Magnesium Oxide 400 MG TAB PO SCH (20:33)
[2018-03-24] MEDS: Dextrose 5 % And 0.9 % NaCl 1,000 ML IV SCH ×2 (03:27→17:08)
[2018-03-24 07:43] LABS: INR-International Normal Ratio 3.4; Prothrombin Time 34.4 SEC (12.0-14.7)
[2018-03-24 07:44] LABS: PTT 54.1 SEC (22.9-36.1)
[2018-03-24 07:46] LABS: Hemoglobin 9.3 g/dL (14.0-18.0); Mean Corpuscular HGB CONC 31.5 g/dL (32.0-36.0); Mean Corpuscular Hemoglobin 38.8 pg (27.0-31.0); Mean Platelet Volume 8.7 fL (7.4-10.4); Platelet Count 74 thou/uL (130-400); RBC Distribution Width 14.6 % (11.5-14.5); White Blood Cell (WBC) Count 14.7 thou/uL (4.8-10.8)
[2018-03-24 07:47] LABS: ALT (SGPT) 29 U/L (8-55); AST (SGOT) 73 U/L (5-34); Albumin 3.2 g/dL (3.5-5.0); Alkaline Phosphatase 71 U/L (40-150); Anion Gap 15 mmol/L (10-20); BUN (Urea Nitrogen) 24 mg/dL (8.4-25.7); Bilirubin, Total 13.3 mg/dL (0.2-1.2); Calc. Creatinine Clearance 54 mL/min (70-130); Calcium 9.7 mg/dL (7.8-10.44); Carbon Dioxide 18 mmol/L (22-29); Chloride 111 mmol/L (98-107); Estimated GFR-MDRD 42; Globulin 3.1 g/dL (2.4-3.5); Glucose 108 mg/dL (70-105); Potassium 4.2 mmol/L (3.5-5.1); Protein, Total 6.3 g/dL (6.0-8.3); Sodium 140 mmol/L (136-145)
[2018-03-24] MEDS: Folic Acid 1 MG TAB PO SCH (08:48)
[2018-03-24] MEDS: Tamsulosin HCl 0.4 MG CAP PO SCH (08:48)
[2018-03-24] MEDS: Multivit, Therapeutic 1 TAB PO SCH (08:49)
[2018-03-24] MEDS: Propranolol 10 MG TAB PER TUBE SCH ×3 (08:49→20:53)
[2018-03-24] MEDS: Rifaximin 550 MG TAB PO SCH (08:49)
[2018-03-24] MEDS: Escitalopram Oxalate 10 mg Tablet PO SCH (08:50)
[2018-03-24] MEDS ORDERED: Phytonadione 10 MG/ML AMP PO SCH (09:00)
[2018-03-24] MEDS ORDERED: Phytonadione 10 MG in Sodium Chloride 0.9% 50 ML IVPB SCH (09:00)
[2018-03-24 09:17] LABS: Band 8 % (5-11); Eosinophils 1 % (0-10); Lymphocytes 11 % (21-51); MDiff Complete? YES; Macrocytosis MODERATE=16-30 cells (100X) (0-5/hpf); Monocytes 9 % (0-10); Neutrophil 71 % (42-75); Platelet Morphology Comment Appears Decreased
[2018-03-24] MEDS: Phytonadione 10 MG in Sodium Chloride 0.9% 50 ML IVPB SCH (10:07)
[2018-03-24 11:06] LABS: Hemoglobin 9.2 g/dL (14.0-18.0); Mean Corpuscular HGB CONC 29.8 g/dL (32.0-36.0); Mean Corpuscular Hemoglobin 37.3 pg (27.0-31.0); Platelet Count 102 thou/uL (130-400); RBC Distribution Width 14.7 % (11.5-14.5); Red Blood Cell (RBC) Count 2.47 mill/uL (4.70-6.10)
[2018-03-24 11:08] LABS: Actual Bicarbonate (HCO3a) 16.1 mEq/L (22-28); Base Excess (BEa) -10.4 mEq/L (-2.0 to +3.0); CO2 Tension 38.6 mmHg (35.0-45.0); Calcium, Ionized 1.16 mmol/L (1.12-1.30); Carboxyhemoglobin (COHb) 1.8 gm% (0.0-3.0); Hemoglobin (Hb) 8.1 g/dL (14.0-18.0); O2 Tension (PaO2) 100.2 mmHg (80.0-100.0)
[2018-03-24 11:09] LABS: Puncture Site LR; pH, Arterial 7.24 (7.35-7.45)
--- NOTE | 2018-03-24 11:15 | PDOC.PN ---
- Subjective Encounter Start Date: 03/24/18 Encounter Start Time: 11:00 Subjective: Code Blue due to resp failure/cardiac arrest. Nsg reports pt was found -: pulseless this am, CPR in progress. - Objective Resuscitation Status - Order Detail: 03/16/18 19:50 Resuscitation Status Routine Resuscitation Status: FULL: Full Resuscitation MAR Reviewed: Yes Vital Signs & Weight: Vital Signs (12 hours) Temp Pulse Resp BP BP BP Pulse Ox 03/24/18 10:44 100 117/83 03/24/18 07:49 98 F 94 20 152/90 H 95 03/24/18 04:00 97.6 F 94 20 156/84 H 95 03/24/18 00:00 99.4 F 98 20 116/75 94 L Weight Weight 176 lb I&O: 03/23/18 03/24/18 03/25/18 06:59 06:59 06:59 Intake Total 843 1210 Balance 843 1210 Result Diagrams: 03/24/18 10:40 03/24/18 07:16 Additional Labs: Accuchecks 03/24/18 03/24/18 03/23/18 10:27 03:54 18:50 POC Glucose 102 113 H 93 03/23/18 03/23/18 15:44 11:57 POC Glucose 99 97 Microbiology 03/17/18 11:55 Ascites Fluid Body Fluid Culture - Final Presumptive Corynebacterium sp Laboratory Tests 03/04/18 03/13/18 03/16/18 18:30 21:04 16:38 Hgb 9.8 L Plt Count 95 L INR 2.4 2.5 Creatinine Ammonia 03/16/18 03/16/18 03/17/18 16:38 16:38 05:25 Hgb Plt Count INR Creatinine 3.49 H 3.46 H Ammonia 25 03/17/18 03/18/18 03/19/18 05:25 08:37 06:35 Hgb 9.6 L Plt Count 87 L INR Creatinine 2.90 H 2.38 H Ammonia 03/20/18 03/22/18 03/23/18 10:30 03:54 08:27 Hgb Plt Count INR 4.5 H* Creatinine 2.02 H Ammonia 39 EKG Reviewed by me: Yes (Tele - currently SR, initially no tracing) Phys Exam - Physical Examination unresponsive minimally reactive pupils, +scleral icterus, blood in OP Neck: no nodes, no JVD absent breath sounds heart sounds absent distended, +ascites no pulses palpated Musculoskeletal: no edema unresponsive Deviation from normal: cyanosis peripherally Skin: normal turgor Deviation from normal: De Jesus with dark slim urine Dx/Plan (1) Cardiac arrest due to other underlying condition Code(s): I46.8 - CARDIAC ARREST DUE TO OTHER UNDERLYING CONDITION Status: Acute Comment: Multifactorial given ESLD, coagulopathy and electrolyte disturbance, ACLS with CPR, Epinephrine x 2 and sodium bicarbonate, intubated on SIMV (2) Acute respiratory failure with hypoxia and hypercapnia Code(s): J96.01 - ACUTE RESPIRATORY FAILURE WITH HYPOXIA; J96.02 - ACUTE RESPIRATORY FAILURE WITH HYPERCAPNIA Status: Acute Comment: Multifactorial, intubated on mech ventilation, consult Pulmonology, start Meropenem/Vancomycin, ABG pending (3) Acute hepatic encephalopathy Code(s): K72.00 - ACUTE AND SUBACUTE HEPATIC FAILURE WITHOUT COMA Status: Acute Comment: Resume Lactulose per NGT, Ativan prn, progressive (4) Decompensation of cirrhosis of liver Code(s): K72.90 - HEPATIC FAILURE, UNSPECIFIED WITHOUT COMA Status: Acute Comment: Continue Xifaxan, Lactulose titrating to BM frequency, appears end- stage process, MELD score = 39, Palliative care with consideration of hospice options (5) MAHNAZ (acute kidney injury) Code(s): N17.9 - ACUTE KIDNEY FAILURE, UNSPECIFIED Status: Acute Comment: Slow improvement, avoid nephrotoxic meds and limit contrast (6) Hepatorenal syndrome Code(s): K76.7 - HEPATORENAL SYNDROME Status: Acute Comment: Continue mgmt as outlined previously (7) Alcohol abuse Code(s): F10.10 - ALCOHOL ABUSE, UNCOMPLICATED Status: Chronic Comment: Ativan, MVI, Thiamine, Folate, ASE protocol (8) Coagulopathy Status: Chronic Comment: Avoid NSAIDs, anticoagulation, 2u FFP, Vitamin K 10mg daily, s/p 2u FFP - Plan plan discussed w/ family, continue antibiotics, health and social care teacher, respiratory therapy ACLS protocol with ROSC, transfer to CCU for critical support, clinically -: remains fragile and discussed situation with daughter, currently remains -: full code, add Vanc/Meropenem, PCXR, ABG, Vitamin K -: Poor prognosis with high likelihood to further decompensate -: AM labs: CMP, CBC, PT/PTT/INR * Total critical care time: 45min
[2018-03-24 11:16] LABS: ALT (SGPT) 29 U/L (8-55); AST (SGOT) 73 U/L (5-34); Alkaline Phosphatase 78 U/L (40-150); Anion Gap 21 mmol/L (10-20); BUN (Urea Nitrogen) 24 mg/dL (8.4-25.7); Bilirubin, Total 12.5 mg/dL (0.2-1.2); Calc. Creatinine Clearance 54 mL/min (70-130); Calcium 9.2 mg/dL (7.8-10.44); Carbon Dioxide 15 mmol/L (22-29); Chloride 113 mmol/L (98-107); Estimated GFR-MDRD 41; Globulin 2.9 g/dL (2.4-3.5); Glucose 99 mg/dL (70-105); Lactic Acid 8.7 mmol/L (0.5-2.2); Potassium 4.7 mmol/L (3.5-5.1); Protein, Total 5.9 g/dL (6.0-8.3); Sodium 144 mmol/L (136-145)
[2018-03-24 11:27] LABS: Band 13 % (5-11); Lymphocytes 31 % (21-51); MDiff Complete? YES; Monocytes 15 % (0-10); Neutrophil 40 % (42-75); Platelet Morphology Comment Appears Decreased; Reactive Lymphocytes 1 % (0-10); Vacuoles SLIGHT
[2018-03-24] MEDS ORDERED: Norepinephrine 8 MG/250 ML BAG IVPB PRN (12:03)
--- NOTE | 2018-03-24 12:20 | PRG ---
DATE OF SERVICE: 03/24/2018 SUBJECTIVE: A 57-year-old gentleman being seen for acute kidney injury. The patient has been intubated this morning. OBJECTIVE: GENERAL: On examination, the patient is resting and intubated. VITAL SIGNS: Afebrile, pulse 100, and blood pressure 116/75. HEENT: Head, normocephalic. NECK: Supple. No JVD. CHEST: Symmetrical. CARDIOVASCULAR: S1 and S2. ABDOMEN: Distended. EXTREMITIES: Show no edema. LABORATORY DATA: Labs show hemoglobin 9.2. Creatinine 1.7. ASSESSMENT: 1. Acute kidney injury, stable. 2. Hypertension, stable. PLAN: The patient has hepatorenal syndrome and very poor prognosis, so I am going to sign off on this patient. Please reconsult as needed. Overall prognosis is very poor. I would recommend Palliative Care evaluation. Job ID: [id number]
[2018-03-24] MEDS ORDERED: Pantoprazole 40 MG VIAL IVP SCH (12:30)
--- NOTE | 2018-03-24 13:43 | RAD ---
CHEST ONE VIEW: HISTORY: Chest pain. COMPARISON: 04/05/2016 FINDINGS: The cardiac silhouette is magnified by projection. The pulmonary vasculature is now engorged with pa tchy areas of parenchymal opacity throughout each lung and shallow inspiration. The mediastinum is m idline. The tip of an endotracheal catheter overlies the thoracic inlet. Nasogastric tube descends to the stomach. Defibrillator patch overlies the left upper chest. desk monitor leads overly the chest. IMPRESSION: 1. Endotracheal catheter is in good radiographic position. 2. Patchy areas of parenchymal opacity and pulmonary vascular congestion. POS: [facility]
[2018-03-24] MEDS ORDERED: Fentanyl BOLUS 250 ML IVPB PRN (13:44)
[2018-03-24] MEDS ORDERED: Morphine 2 MG/ML SYRINGE SLOW IVP PRN (13:44)
[2018-03-24] MEDS ORDERED: fentaNYL Citrate/PF 2,000 MCG in Sodium Chloride 0.9% 60 ML IV SCH (13:44)
[2018-03-24] MEDS ORDERED: Propofol BOLUS 1,000 MG/100 ML VIAL IV PRN (13:44)
[2018-03-24] MEDS ORDERED: DISCONTINUE PREVIOUS NARCOTIC PAIN MEDICATIONS AND BENZODIAZEPINES FS SCH (13:44)
[2018-03-24] MEDS ORDERED: Propofol 1,000 MG/100 ML VIAL IV PRN (13:44)
[2018-03-24] MEDS: Pantoprazole 40 MG VIAL IVP SCH ×2 (16:25→20:53)
[2018-03-24] MEDS: Vancomycin HCl 1 GM in Premix Bag 1 BAG IVPB SCH (16:26)
[2018-03-24] MEDS ORDERED: Labetalol HCl 100 MG/20 ML VIAL ONE (16:42)
[2018-03-24] MEDS: MEROPENEM 1 GM/50 ML 1 GM in Premix Bag 1 BAG IVPB SCH ×2 (16:45→22:15)
[2018-03-24] MEDS ORDERED: Albumin 25% 25 GM/100 ML BOT IVPB SCH (17:30)
--- NOTE | 2018-03-24 18:32 | PRG ---
DATE OF SERVICE: 03/24/2018 SUBJECTIVE: Mr. Resendiz is now intubated in the ICU. He had a respiratory arrest. His family notes that he got quiet. When he went to check on, he was apneic. This was around 12 today apparently. He is intubated. Nurse in the ICU notes he is not void making any urine. The significant other tells me that she has talked with the family and they have talked palliative care. They are going to talk about withdrawing life support tomorrow after a family meeting. Presently, the patient is DNR, but is still on full support. OBJECTIVE: VITAL SIGNS: Temperature is this morning. He has been afebrile. Pulse is 95; blood pressure is 98/65; earlier today, he was 97/58, 113/68 with a pulse of 90s. HEENT: He is grossly icteric. LUNGS: Clear. ABDOMEN: Protuberant. There is some fluid wave. EXTREMITIES: Trace edema. LABORATORY DATA: White count today 27,000, hemoglobin 9.2, platelet count 102. INR is down to 3.4. PH was 7.24 at time of code, pO2 of 100, pCO2 of 38. Chemistry; sodium 144, potassium 4.7, chloride 113, bicarb 15, anion gap is 16, BUN is 24, creatinine is 1.71, lactic acid 8.7 today, calcium 9.2. Bilirubin 12.5, AST and ALT of 33 and 29, albumin 3. B12 was normal on this admission. Alpha-fetoprotein was 17.3 on this admission. Hepatitis C antibody is positive. ASSESSMENT: 1. 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 2. Recent admission with hepatorenal syndrome, improved. 3. Paracentesis did reveal Corynebacterium, which was felt to be overgrowth and contaminant as there was no elevated white count in the fluid. 4. Worsening hepatic encephalopathy. RECOMMENDATIONS: 1. Avoid benzodiazepines. 2. Lactulose q.i.d. schedule. 3. Protonix for ulcer prophylaxis. 4. Vitamin K daily. 5. Agree with meropenem. 6. With lack of urine output, we will start him on some IV fluids and some albumin in a banana bag daily. If the family also decides withdrawal care, we can discontinue those items. Job ID: [id number]
[2018-03-24] MEDS ORDERED: Multivitamins, Adult 10 ML, Folic Acid 1 MG, Thiamine HCl 100 MG in Dextrose 5 %-0.45 %... IV SCH (20:00)
[2018-03-24] MEDS: Lorazepam 2 MG/ML VIAL SLOW IVP PRN (22:36)
--- NOTE | 2018-03-25 01:28 | CON ---
DATE OF CONSULTATION: 03/24/2018 HISTORY OF PRESENT ILLNESS: Mr. Resendiz is a 57-year-old with cirrhosis. Apparently, he had a respiratory arrest this morning. Someone in the room noticed that he had become quiet and prior to that he had been agitated and encephalopathic. Reviewing the code sheet, he had no pulse and he was intubated. He has actually been here since the . He was seen by Dr. Matta at that time. Multiple discussions apparently have been had with family about his advanced cirrhosis. Dr. Matta tells me that intermittently he quits drinking and he does reasonably well when he is not drinking, but he has recently relapsed. Apparently, he has not had anything to drink since February 23. He was hospitalized last summer without a renal syndrome. He also has had portal vein thrombosis. He has had nothing to suggest that he has developed hepatic malignancy with his hepatitis C. PAST MEDICAL HISTORY: Otherwise remarkable for anxiety, depression, and alcohol use. PAST SURGICAL HISTORY: He has had hand surgery and neck surgery in the past. SOCIAL HISTORY: Quit drinking at the beginning of February. He is not a smoker. ALLERGIES: HE HAS NO DRUG ALLERGIES. MEDICATIONS: Prior to admission he was on 1. Magnesium. 2. Tamsulosin. 3. Lasix. 4. Aldactone. 5. Folate. 6. Thiamin. 7. Xifaxan. 8. Propranolol. 9. Lexapro. 10. Klonopin. 11. Multiple ljpo-mzi-syonifx medicines. REVIEW OF SYSTEMS: Not obtainable. PHYSICAL EXAMINATION: GENERAL: He is unresponsive. Pupils are sluggish. VITAL SIGNS: Blood pressure 92/49 on Levophed. Heart rates in the 90s, respiratory rates in the 20s, oximetry is 97. HEENT: Pupils react sluggishly. Sclerae are icteric. SKIN: Icteric. NECK: Supple. LUNGS: Clear anteriorly. HEART: Regular rhythm. S1 and S2 are normal. ABDOMEN: Soft and nontender. EXTREMITIES: Without clubbing, cyanosis, or edema. LABORATORY DATA: White count 14.7, hemoglobin 9.3, platelets 74,000. Sodium 144, potassium 4.7, chloride 113, bicarbonate 15, BUN 24, creatinine 1.71. IMPRESSION: Respiratory failure, status post cardiorespiratory arrest. Post-intubation chest x-ray shows , the tube was advanced. He does have evidence of interstitial edema. blood gas showed a pH of 7.24, CO2 of 38, pO2 of 100. His rate was increased from 20 to 26, this should get his pH up to 7.3. Obviously, his prognosis is quite poor. After my consult, apparently family had meetings with the nurses of palliative care team and they have decided that they wanted to be a do not resuscitate patient. They have also decided that they probably want to withdraw care tomorrow. We will continue to follow. Critical care time, 30 minutes. Job ID: [id number] MTDD
[2018-03-25 02:23] VITALS: BP 102/53
[2018-03-25] MEDS: Vancomycin HCl 1 GM in Premix Bag 1 BAG IVPB SCH (03:12)
[2018-03-25 05:12] LABS: PTT 64.1 SEC (22.9-36.1); Prothrombin Time 44.3 SEC (12.0-14.7)
[2018-03-25 05:18] LABS: Anisocytosis SLIGHT = 6-15 cells (100X) (0-5/hpf); Band 4 % (5-11); Hemoglobin 7.7 g/dL (14.0-18.0); Hypochromia SLIGHT = 6-15 cells (100X) (0-5/hpf); INR-International Normal Ratio 4.7; Lymphocytes 8 % (21-51); MDiff Complete? YES; Macrocytosis SLIGHT = 6-15 cells (100X) (0-5/hpf); Mean Corpuscular HGB CONC 31.1 g/dL (32.0-36.0); Mean Platelet Volume 8.6 fL (7.4-10.4); Monocytes 3 % (0-10); Neutrophil 85 % (42-75); Platelet Count 67 thou/uL (130-400); Platelet Morphology Comment Appears Decreased; RBC Distribution Width 14.6 % (11.5-14.5); Red Blood Cell (RBC) Count 2.01 mill/uL (4.70-6.10); White Blood Cell (WBC) Count 15.1 thou/uL (4.8-10.8)
[2018-03-25 05:28] LABS: ALT (SGPT) 24 U/L (8-55); AST (SGOT) 82 U/L (5-34); Alkaline Phosphatase 78 U/L (40-150); Anion Gap 12 mmol/L (10-20); BUN (Urea Nitrogen) 29 mg/dL (8.4-25.7); Bilirubin, Total 13.5 mg/dL (0.2-1.2); Calc. Creatinine Clearance 0 mL/min (70-130); Calcium 8.8 mg/dL (7.8-10.44); Carbon Dioxide 19 mmol/L (22-29); Chloride 114 mmol/L (98-107); Estimated GFR-MDRD 33; Globulin 2.5 g/dL (2.4-3.5); Glucose 128 mg/dL (70-105); Protein, Total 5.5 g/dL (6.0-8.3); Sodium 141 mmol/L (136-145)
[2018-03-25] MEDS: Lorazepam 2 MG/ML VIAL SLOW IVP PRN ×3 (05:38→12:18)
[2018-03-25] MEDS: MEROPENEM 1 GM/50 ML 1 GM in Premix Bag 1 BAG IVPB SCH (05:39)
[2018-03-25] MEDS: Dextrose 5 % And 0.9 % NaCl 1,000 ML IV SCH (07:24)
[2018-03-25 08:00] LABS: Actual Bicarbonate (HCO3a) 17.6 mEq/L (22-28); Base Excess (BEa) -6.6 mEq/L (-2.0 to +3.0); CO2 Tension 29.8 mmHg (35.0-45.0); Calcium, Ionized 1.15 mmol/L (1.12-1.30); Carboxyhemoglobin (COHb) 1.3 gm% (0.0-3.0); Hemoglobin (Hb) 7.8 g/dL (14.0-18.0); Potassium - ABG Lab 3.69 mmol/L (3.70-5.30); pH, Arterial 7.39 (7.35-7.45)
[2018-03-25 08:02] LABS: O2 Tension (PaO2) 49.1 mmHg (80.0-100.0); Puncture Site LRA
[2018-03-25] MEDS: Phytonadione 10 MG in Sodium Chloride 0.9% 50 ML IVPB SCH (08:03)
--- NOTE | 2018-03-25 08:55 | RAD ---
CHEST 1 VIEW: Date: 03/25/18 HISTORY: Respiratory failure, mechanical ventilation. COMPARISON: 03/24/18. FINDINGS: Life support tubes in place. Monitor leads overlie the chest. Bilateral alveolar nodular parenchymal changes are noted, particularly in the perihilar regions with some bilateral pleural effusions, with less overall inspiration, but the appearance is that there is some progressive perihilar and lower lo be disease. No pneumothorax. IMPRESSION: Slightly less inspiratory effort with what appears to be worsening bilateral perihilar and lower lobe mostly alveolar parenchymal changes becoming more confluent than the prior study. Bilateral pleural effusions. Continue short-term follow-up. POS: [facility]
[2018-03-25] MEDS ORDERED: Folic Acid 1 MG TAB PER TUBE SCH (09:00)
[2018-03-25] MEDS ORDERED: Rifaximin 550 MG TAB PER TUBE SCH (09:00)
[2018-03-25 09:40] VITALS: TEMP 99.6
--- NOTE | 2018-03-25 10:04 | PRG ---
DATE OF SERVICE: 03/25/2018 SUBJECTIVE: Norris Resendiz has myoclonic jerking this morning when he is not given Ativan. OBJECTIVE: VITAL SIGNS: Blood pressure 100/57, heart rate 104, respiratory rate is 26, oximetry is 95. LUNGS: Clear. HEART: Regular rhythm. ABDOMEN: Soft and very distended. Chest radiograph shows bilateral effusions. Lungs are hazy at both lung bases. Intake and outputs positive 5113 mL. LABORATORY DATA: White count 14.7, hemoglobin 9.3, platelets 74. Sodium 141, potassium 4, chloride 114, bicarb 19, BUN 29, creatinine up to 2.1. Blood gas 739, CO2 of 29, pO2 of 49. IMPRESSION: 1. Severe anoxic brain injury after cardiorespiratory arrest. 2. End-stage cirrhosis. 3. Acute on chronic kidney disease. 4. Pulmonary edema and pleural effusion secondary to volume resuscitation. 5. Ascites secondary to end-stage liver disease. 6. Metabolic acidosis secondary to end-stage liver disease and cardiorespiratory arrest. 7. Anemia of chronic disease. 8. 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 He cannot survive this. Family is contemplating withdrawal of care. He will not survive very long once he is extubated. Job ID: [id number]
[2018-03-25 10:19] LABS: Magnesium 1.5 mg/dL (1.6-2.6); Phosphorus 2.1 mg/dL (2.3-4.7)
--- NOTE | 2018-03-25 11:16 | PDOC.PN ---
- Subjective Encounter Start Date: 03/25/18 Encounter Start Time: 11:00 Subjective: f/u for resp failure, cardiac arrest with ROSC on current [facility] vent -: with apparent seizure-like activity per nursing. Family wishing to -: pursue terminal extubation today. - Objective Resuscitation Status - Order Detail: 03/24/18 15:16 Resuscitation Status Routine Resuscitation Status: DNAR: NO Resuscitation Discussed with: Pt Renata DUPREE and nanrJulieth Reviewed: Yes Vital Signs & Weight: Vital Signs (12 hours) Temp Pulse Resp BP 03/25/18 10:39 126 H 03/25/18 08:00 99.6 F 03/25/18 07:51 120 H 03/25/18 06:00 26 H 03/25/18 05:00 100 F H 03/25/18 04:00 100 F H 26 H 03/25/18 03:00 100.1 F H 03/25/18 02:22 95 102/53 L 03/25/18 02:00 26 H 03/25/18 01:00 99.9 F H 03/25/18 00:00 26 H Weight Weight 2.857 oz Most Recent Monitor Data Heart Rate from ECG 110 NIBP 119/68 NIBP BP-Mean 85 Respiration from ECG 31 SpO2 91 I&O: 03/24/18 03/25/18 03/26/18 06:59 06:59 06:59 Intake Total 1210 5661.7 300 Output Total 548 22 Balance 1210 5113.7 278 Result Diagrams: 03/25/18 04:50 03/25/18 04:50 Additional Labs: Accuchecks 03/24/18 03/24/18 23:01 17:01 POC Glucose 109 78 Microbiology 03/17/18 11:55 Ascites Fluid Body Fluid Culture - Final Presumptive Corynebacterium sp Laboratory Tests 03/04/18 03/13/18 03/16/18 18:30 21:04 16:38 Hgb 9.8 L Plt Count 95 L INR 2.4 2.5 Creatinine Ammonia 03/16/18 03/16/18 03/17/18 16:38 16:38 05:25 Hgb Plt Count INR Creatinine 3.49 H 3.46 H Ammonia 25 03/17/18 03/18/18 03/19/18 05:25 08:37 06:35 Hgb 9.6 L Plt Count 87 L INR Creatinine 2.90 H 2.38 H Ammonia 03/20/18 03/22/18 03/23/18 10:30 03:54 08:27 Hgb Plt Count INR 4.5 H* Creatinine 2.02 H Ammonia 39 Radiology Reviewed by me: Yes (PCXR - bilat pleural effusions, lines/tubes in place) EKG Reviewed by me: Yes (Tele - sinus tachycardia) Phys Exam - Physical Examination ill-appearing, sedate on mech ventilation ETT in place, + scleral icterus Neck: no nodes, no JVD, supple diminished breath sounds bilat, coarse tachycardic S1, S2 Cardiovascular: no significant murmur, no rub distended, + ascites Gastrointestinal: positive bowel sounds Musculoskeletal: pulses present, edema present tremors noted in all extremities Skin: normal turgor, cap refill <2 seconds Deviation from normal: De Jesus with dark urine Dx/Plan (1) Acute respiratory failure with hypoxia and hypercapnia Code(s): J96.01 - ACUTE RESPIRATORY FAILURE WITH HYPOXIA; J96.02 - ACUTE RESPIRATORY FAILURE WITH HYPERCAPNIA Status: Acute Comment: Multifactorial, intubated on mech ventilation, consult Pulmonology, start Meropenem/Vancomycin, appears terminal event (2) Cardiac arrest due to other underlying condition Code(s): I46.8 - CARDIAC ARREST DUE TO OTHER UNDERLYING CONDITION Status: Acute Comment: Multifactorial given ESLD, coagulopathy and electrolyte disturbance, ACLS with CPR, Epinephrine x 2 and sodium bicarbonate, intubated on SIMV (3) Acute hepatic encephalopathy Code(s): K72.00 - ACUTE AND SUBACUTE HEPATIC FAILURE WITHOUT COMA Status: Acute Comment: Resume Lactulose per NGT, Ativan prn, progressive (4) Decompensation of cirrhosis of liver Code(s): K72.90 - HEPATIC FAILURE, UNSPECIFIED WITHOUT COMA Status: Acute Comment: Continue Xifaxan, Lactulose titrating to BM frequency, appears end- stage process, MELD score = 39, Palliative care with consideration of hospice options (5) MAHNAZ (acute kidney injury) Code(s): N17.9 - ACUTE KIDNEY FAILURE, UNSPECIFIED Status: Acute Comment: Slow improvement, avoid nephrotoxic meds and limit contrast (6) Hepatorenal syndrome Code(s): K76.7 - HEPATORENAL SYNDROME Status: Acute Comment: Continue mgmt as outlined previously (7) Alcohol abuse Code(s): F10.10 - ALCOHOL ABUSE, UNCOMPLICATED Status: Chronic Comment: Ativan, MVI, Thiamine, Folate, ASE protocol (8) Coagulopathy Status: Chronic Comment: Avoid NSAIDs, anticoagulation, 2u FFP, Vitamin K 10mg daily, s/p 2u FFP - Plan plan discussed w/ family, continue antibiotics, family welfare social work professor, respiratory therapy Discussed with MPOA as family wishing to pursue terminal extubation -: once all family present today -: Continue supportive mgmt -: Spiritual care -: Updated family of situation and all agree with course of action * Continue Morphine sulfate, anxiolytics prn
--- NOTE | 2018-03-25 11:27 | PDOC.EVN ---
Event Note - Event Note Event Note: ACP note: Spoke with MPOA and daughter regarding end-stage process given ESLD, respiratory failure and cardiac arrest. Pt continues to clinically decline without meaningful hope for recovery. Family and MPOA agree with pursuing terminal extubation today. Plan for comfort care and terminal extubation with family present. All questions and concerns answered and family in agreement with course of action. Total ACP time: 22min
[2018-03-25] MEDS ORDERED: Morphine 4 MG/ML VIAL SLOW IVP PRN ×2 (12:03→12:05)
[2018-03-25] MEDS ORDERED: Morphine 10 MG/ML VIAL SLOW IVP PRN (12:10)
[2018-03-25 12:25] VITALS: BMI 28.7
--- NOTE | 2018-03-26 04:52 | DIS ---
DATE OF ADMISSION: 03/18/2018 DATE OF DISCHARGE: 03/25/2018 FINAL DIAGNOSES: 1. Acute hypoxic hypercapnic respiratory failure. 2. Cardiac arrest secondary to coagulopathy and end-stage liver disease. 3. Acute hepatic encephalopathy. 4. End-stage liver disease with hepatic cirrhosis. 5. Acute kidney injury. 6. Hepatorenal syndrome. 7. Alcohol abuse, chronic. 8. Coagulopathy secondary to end-stage liver disease. CONSULTATIONS: 1. Dr. Matta with GI Service. 2. Dr. Trevino with Nephrology Service. 3. Dr. Coleman with Pulmonology Critical Care Service. PERTINENT LAB AND X-RAY FINDINGS: Creatinine ranged between 1.70 to 3.49. Lactic acid level 8.7. Total bilirubin ranged between 10.4 to 13.5, AST ranged between 62 to 101, ALT ranged between 24 to 38. Serum ammonia level ranged between 21 to 39. Albumin level ranged between 2.2 to 3.2. Lipase 56. CBC showed a white blood cell count ranging between 7.0 to 27.0, hemoglobin ranged between 7.7 to 9.8, platelet count ranged between 67 to 102. INR ranged between 3.4 to 4.7. Ascitic fluid dated 03/17/2018 showed presumptive maren bacterium species. Urine culture dated 03/24/2018 showed no growth at 12 hours. Portable chest x-ray dated 03/25/2018 showed bilateral pleural effusions with worsening bilateral perihilar and lower lobe parenchymal changes. HOSPITAL COURSE: The patient was initially admitted with worsening abdominal pain in the context of end-stage liver disease with hepatic cirrhosis and ascites. The patient was noted with decompensated cirrhosis and ascites, undergoing paracentesis with evaluation of the ascitic fluid showing presumptive maren bacterium species. The patient was placed on Levaquin intravenously and monitored for clinical response. The patient received general supportive management in addition to multivitamin, thiamine and folate. The patient was evaluated by the GI Service and monitored clinically with worsening hepatic encephalopathy. The patient received as well as Ativan for worsening encephalopathic changes. The patient was also noted with acute kidney injury in the context of hepatorenal syndrome with modification to his diuretic regimen. The patient did show improvement in overall renal function during the hospital course. However, continued to decompensate in regard to mental status. The patient became increasingly combative, confused, despite increased lactulose exposure and Xifaxan. Due to patient's overall end-stage liver disease and MELD score of 39, the patient was noted with a predicted mortality of 52% in 3 months. Discussion was had with the Palliative Care Service and patient and family were updated regarding goals of care as well as prognosis of current disease. The patient clinically decompensated with worsening mental status as well as respiratory status and was noted with cardiac arrest. The patient underwent ACLS protocol on 03/24/2018 with return of spontaneous circulation. The patient was placed on mechanical ventilation and transferred to the critical care unit where he stayed for approximately 24 hours. The patient received aggressive critical support; however, showed progression and clinical decline for all parameters. Discussions were had with the family regarding comfort and palliative measures with the family and medical power of real estate associate attorney expressing a consensus for terminal extubation and comfort measures. The patient was terminally extubated on 03/25/2018, expiring at 12:54 p.m. Decedent affairs were notified and family was present at the bedside. Job ID: [id number]
== END 2018-03-25 14:11 | disposition expired | DRG 441 ==
LOC: ERS 16:02 → ERHOLD 18:56 → T4-B 18:56 → OBSVTOIN 03-18 15:09 → CCU 03-24 10:52
PROVIDERS: ADMIT Hospitalist; ATTEND Hospitalist
PROC: 0W9G3ZX Drainage of Peritoneal Cavity, Percutaneous Approach, Diagnostic (ICD-10-PCS; principal; 2018-03-17)
PROC: 30233K1 Transfusion of Nonautologous Frozen Plasma into Peripheral Vein, Percutaneous Approach (ICD-10-PCS; 2018-03-23)
PROC: 5A1935Z Respiratory Ventilation, Less than 24 Consecutive Hours (ICD-10-PCS; 2018-03-24)
PROC: 0BH17EZ Insertion of Endotracheal Airway into Trachea, Via Natural or Artificial Opening (ICD-10-PCS; 2018-03-24)
PROC: 5A12012 Performance of Cardiac Output, Single, Manual (ICD-10-PCS; 2018-03-24)
DX: K72.00 Acute and subacute hepatic failure without coma (principal); J96.01 Acute respiratory failure with hypoxia; J96.02 Acute respiratory failure with hypercapnia; I81 Portal vein thrombosis; K76.7 Hepatorenal syndrome; N18.6 End stage renal disease; D68.4 Acquired coagulation factor deficiency; E87.1 Hypo-osmolality and hyponatremia; G93.1 Anoxic brain damage, not elsewhere classified; E87.2 Acidosis; N17.9 Acute kidney failure, unspecified; I12.0 Hypertensive chronic kidney disease with stage 5 chronic kidney disease or end stage renal disease; Z51.5 Encounter for palliative care; Z66 Do not resuscitate; K70.31 Alcoholic cirrhosis of liver with ascites; D63.1 Anemia in chronic kidney disease; D73.1 Hypersplenism; E86.0 Dehydration; F41.9 Anxiety disorder, unspecified; F32.9 Major depressive disorder, single episode, unspecified; D69.59 Other secondary thrombocytopenia; E88.09 Other disorders of plasma-protein metabolism, not elsewhere classified; I46.8 Cardiac arrest due to other underlying condition; B18.2 Chronic viral hepatitis C; F10.20 Alcohol dependence, uncomplicated; Z79.899 Other long term (current) drug therapy
CPT/HCPCS: 36415; 36416; 36430; 49083; 71045; 80048; 80053; 81003; 81015; 82140; 82805; 83605; 83690; 83735; 84100; 85007; 85025; 85027; 85060; 85610; 85730; 86850; 86900; 86901; 87040; 87070; 87086; 87205; 89051; 92950; 94002; 94003; 96374; C9113; J1956; J2060; J2185; J2270; J3010; J3370; J3411; J3430; J3486; J7042; J7050; P9047; P9059